=== PATIENT | male | born 1935 | race Caucasian/White ===

== ENCOUNTER 2016-04-30 09:08 | Inpatient (IN) | payer OTHER ==
--- NOTE | 2016-04-30 09:21 | EDPHY ---
H & P Stated Complaint: Weak,feels dehydrated, constipated, n/v Time Seen by Provider: 04/30/16 09:20 - Personal History Current Tetanus Diphtheria and Acellular Pertussis (TDAP): Yes - Medical/Surgical History Hx Diabetes: No Other PMH: melanoma (current immunotherapy). thyroid - Social History Smoking Status: Former smoker Constitutional: Initial Vital Signs Temperature (C) 36.3 C 04/30/16 09:09 Heart Rate 116 H 04/30/16 09:09 Respiratory Rate 18 04/30/16 09:09 Blood Pressure 106/68 04/30/16 09:09 O2 Sat (%) 93 04/30/16 09:09 O2 Delivery Mode Room Air Allergies/Adverse Reactions: No Known Allergies Allergy (Verified 04/30/16 09:16) Home Medications: Medication Instructions Recorded Ipilimumab [Yervoy] 50 mg IV 04/30/16 Levothyroxine [Synthroid 100 mcg 100 mcg PO DAILY06 04/30/16 (*)] Nivolumab [Opdivo] 40 mg IV 04/30/16 Prochlorperazine Maleate 10 mg 04/30/16 [Compazine 10mg (*)] Medical Decision Making ED Course/Re-evaluation: CHIEF COMPLAINT: Abdominal pain, constipation, vomiting. HISTORY OF PRESENT ILLNESS: The patient is an 81 y/o male, who is currently being treated for melanoma, complaining of abdominal pain, constipation, and vomiting for the past few days. He used a Fleet enema yesterday for constipation with successful bowel movement. He complains of some burning sensation in his esophagus when swallowing water. He has no appetite and has not been eating or drinking much due to the burning sensation. He was referred to the ED by his PCP for IV hydration. REVIEW OF SYSTEMS: A 10 point review of systems was performed and is negative with the exception of the elements mentioned in the history of present illness. PHYSICAL EXAM: HR, BP, O2 Sat, RR. Temp noted General Appearance: Alert, dehydrated, appropriate, and cachectic. Head: Atraumatic without scalp tenderness or obvious injury Eyes: Pupils equal, round, reactive to light and accommodation, EOMI, no trauma , no injection. Ears: Clear bilaterally, no perforation, normal landmarks Nose: Atraumatic, no rhinorrhea, clear. Throat: There is no erythema or exudates, no lesions, normal tonsils, mucus membranes dry. Neck: Supple, 2+ carotid upstroke, nontender, no lymphadenopathy. Respiratory: No retractions, no distress, no wheezes, and no accessory muscle use. Lungs are clear to auscultation bilaterally. Cardiovascular: Tachycardic regular rate and rhythm, no murmurs, rubs, or gallops. Bilateral carotid, radial, dorsalis pedis, and posterior tibial pulses intact. Good capillary refill all extremities. Gastrointestinal: Abdomen is soft, nontender, non-distended, no masses, no rebound, no guarding, no peritoneal signs. Musculoskeletal: Normal active ROM of all extremities, atraumatic. Neurological: Alert, appropriate, and interactive. The patient has normal DTRs and non-focal cranial nerves, motor, sensory, and cerebellar exam. Skin: No rashes, good turgor, no nodules on palpation. Past medical history: Melanoma on 4th round of immunotherapy Past surgical history: Noncontributory Family history: Noncontributory Social history: Family member at bedside. Oncologist: Dr. Amaya DIAGNOSTICS/PROCEDURES/CRITICAL CARE TIME: Study: CT of the Abdomen Indication: Pain Results: CT scan of the abdomen was obtained. The results of the study are partial small-bowel obstruction. The study was read by the radiologist, Dr. Amari Childers. I viewed the images myself on the PACS system. DIFFERENTIAL DIAGNOSIS: The differential diagnosis for the patient's abdominal pain included but was not limited to dehydration, complication from melanoma and treatment, appendicitis, cholecystitis, hernias, testicular torsion , gastritis, and urinary tract infection. MEDICAL DECISION MAKING: This is an ill-appearing 81 y/o male with melanoma complaining of several days of abdominal pain, constipation, and vomiting. He used a fleet enema yesterday with improvement in his constipation. He has been anorexic likely due to melanoma treatment and has also had difficulty drinking fluids due to esophageal burning after several episode of vomiting. He has dry mucous membranes on exam. His abdomen is soft and nontender. Plan for fluid resuscitation, lab work, and symptom management. IV established. Labs drawn including CBC, CHEM. 20mg IV Pepcid, 55mg PO GI cocktail, 4mg IV Zofran, and 2L IV NS administered. Creatinine 2.2, BUN 50, WBC 16. Renal insufficiency is likely related to dehydration. Plan to continue IV fluids. UA ordered. 1135: Reevaluated patient. He continues to have short episodes of abdominal cramping. He does not feel improved. Plan for abdominal CT and admission for rehydration and observation. 1140: Spoke with Dr. Oscar, oncology. She read me the patient's recent PET scan from earlier this month that showed no evidence for his abdominal pain today. 1145: Spoke with hospitalist service. Dr. Yusuf accepts admission. CT scan came back showing partial small bowel obstruction I will paged surgery. - Data Points Laboratory Results: Laboratory Results 04/30/16 09:30 04/30/16 09:30 04/30/16 04/30/16 11:05 09:30 WBC 16.59 H 10^3/uL (3.80-9.50) RBC 5.49 10^6/uL (4.40-6.38) Hgb 16.0 g/dL (13.7-17.5) Hct 47.4 % (40.0-51.0) MCV 86.3 fL (81.5-99.8) MCH 29.1 pg (27.9-34.1) MCHC 33.8 g/dL (32.4-36.7) RDW 14.7 % (11.5-15.2) Plt Count 229 10^3/uL (150-400) MPV 8.5 L fL (8.7-11.7) Neut % (Auto) 86.1 H % (39.3-74.2) Lymph % (Auto) 3.6 L % (15.0-45.0) [place] % (Auto) 9.5 % (4.5-13.0) Eos % (Auto) 0.1 L % (0.6-7.6) Baso % (Auto) 0.3 % (0.3-1.7) Nucleat RBC Rel Count 0.0 % (0.0-0.2) Absolute Neuts (auto) 14.28 H 10^3/uL (1.70-6.50) Absolute Lymphs (auto) 0.60 L 10^3/uL (1.00-3.00) Absolute Monos (auto) 1.58 H 10^3/uL (0.30-0.80) Absolute Eos (auto) 0.01 L 10^3/uL (0.03-0.40) Absolute Basos (auto) 0.05 10^3/uL (0.02-0.10) Absolute Nucleated RBC 0.00 10^3/uL (0-0.01) Immature Gran % 0.4 % (0.0-1.1) Immature Gran # 0.07 10^3/uL (0.00-0.10) Sodium 139 mEq/L (134-144) Potassium 4.5 mEq/L (3.5-5.2) Chloride 95 L mEq/L (97-110) Carbon Dioxide 31 mEq/l (22-31) Anion Gap 13 mEq/L (8-16) BUN 50 H mg/dL (7-23) Creatinine 2.2 H mg/dL (0.7-1.3) Estimated GFR 29 Glucose 165 H mg/dL (70-100) Calcium 11.9 H mg/dL (8.5-10.4) Phosphorus 5.6 H mg/dL (2.5-4.5) Urine Color YELLOW Urine Appearance CLEAR Urine pH 5.0 (5.0-7.5) Ur Specific [place] 1.020 (1.002-1.030) Urine Protein 1+ H (NEGATIVE) Urine Ketones TRACE H (NEGATIVE) Urine Blood NEGATIVE (NEGATIVE) Urine Nitrate NEGATIVE (NEGATIVE) Urine Bilirubin NEGATIVE (NEGATIVE) Urine Urobilinogen NEGATIVE EU (0.2-1.0) Ur Leukocyte Esterase NEGATIVE (NEGATIVE) Urine RBC 5-10 H /hpf (0-3) Urine WBC 3-5 H /hpf (0-3) Ur Epithelial Cells TRACE /lpf (NONE-1+) Urine Mucus TRACE /lpf (NONE-1+) Ur Culture Indicated? Pending Urine Glucose NEGATIVE (NEGATIVE) Medications Given: Discontinued Medications Sodium Chloride (Ns) 1,000 mls @ 0 mls/hr IV ONCE ONE PRN Reason: Wide Open Stop: 04/30/16 09:27 Last Admin: 04/30/16 09:38 Dose: 1,000 mls Sodium Chloride (Ns) 1,000 mls @ 0 mls/hr IV ONCE ONE PRN Reason: Wide Open Stop: 04/30/16 09:27 Last Admin: 04/30/16 10:02 Dose: 1,000 mls Famotidine/Sodium Chloride (Pepcid 20 Mg (Premix)) 50 mls @ 200 mls/hr IV EDNOW ONE Stop: 04/30/16 09:40 Last Admin: 04/30/16 09:37 Dose: 50 mls Miscellaneous Medication (Gi Cocktail) 55 ml PO EDNOW ONE Stop: 04/30/16 09:27 Last Admin: 04/30/16 10:02 Dose: 55 ml Ondansetron HCl (Zofran) 4 mg IVP EDNOW ONE Stop: 04/30/16 09:27 Last Admin: 04/30/16 09:40 Dose: 4 mg Departure - Departure Disposition: [facility] IP Clinical Impression: Dehydration, Partial small bowel obstruction Nausea and vomiting Qualifiers: Vomiting type: unspecified Vomiting Intractability: non-intractable Qualifier Code: (R11.2) Nausea with vomiting, unspecified Abdominal pain Qualifiers: Abdominal location: generalized Qualifier Code: (R10.84) Generalized abdominal pain Condition: Fair Report Scribed for: Obed Bermudez Report Scribed by: Magdalena Morley Date of Report: 04/30/16 Time of Report: 09:30
[2016-04-30] MEDS ORDERED: MAALOX/LIDO/HYOSC GI COCKTAIL 55 ML BOTTLE PO ONE (09:26)
[2016-04-30] MEDS ORDERED: ONDANSETRON 4 MG/2 ML VIAL IVP ONE (09:26)
[2016-04-30] MEDS ORDERED: NS 1,000 ML IV ONE ×2 (09:26)
[2016-04-30] MEDS ORDERED: FAMOTIDINE 20 MG/NACL 50 ML IV ONE (09:26)
[2016-04-30 09:46] LABS: % IMMATURE GRANULYOCYTES 0.4 % (0.0-1.1); ABSOLUTE IMMATURE GRANULOCYTES 0.07 10^3/uL (0.00-0.10); ADD DIFF? NO; ADD MORPH? NO; ADD SCAN? NO; ATYPICAL LYMPHOCYTE FLAG 0 (0-99); FRAGMENT RBC FLAG 0 (0-99); HEMATOCRIT 47.4 % (40.0-51.0); LEFT SHIFT FLG 0 (0-99); LIPEMIA HEMOLYSIS FLAG 90 (0-99); MEAN CELL HEMOGLOBIN 29.1 pg (27.9-34.1); MEAN CELL HEMOGLOBIN CONCENTR. 33.8 g/dL (32.4-36.7); MEAN CELL VOLUME 86.3 fL (81.5-99.8); MEAN PLATELET VOLUME 8.5 fL (8.7-11.7); PLATELET CLUMPS FLAG 0 (0-99); PLATELET COUNT 229 10^3/uL (150-400); RED BLOOD CELL COUNT 5.49 10^6/uL (4.40-6.38); RED CELL DISTRIBUTION WIDTH 14.7 % (11.5-15.2)
[2016-04-30 10:02] LABS: ANION GAP 13 mEq/L (8-16); CALCIUM 11.9 mg/dL (8.5-10.4); CARBON DIOXIDE 31 mEq/l (22-31); CHLORIDE 95 mEq/L (97-110); CREATININE 2.2 mg/dL (0.7-1.3); GLOMERULAR FILTRATION RATE 29; GLUCOSE 165 mg/dL (70-100); POTASSIUM 4.5 mEq/L (3.5-5.2); SODIUM 139 mEq/L (134-144)
[2016-04-30 11:20] LABS: COLOR YELLOW; LEUKOCYTE ESTERASE,URINE NEGATIVE (NEGATIVE); NITRITE,URINE NEGATIVE (NEGATIVE)
[2016-04-30 11:40] LABS: MUCUS TRACE /lpf (NONE-1+)
--- NOTE | 2016-04-30 13:29 | CT ---
CT Abdomen and Pelvis Without Contrast History: History of melanoma on immunotherapy. Abdominal pain. Abnormal renal function with creatinin e of 2.2. Technique: 5-mm helical images were obtained of the abdomen and pelvis from the level of the diaphrag ms through the symphysis pubis. This was done without intravenous contrast with the abnormal renal fu nction. Multiplanar reformation was performed. Radiation dose reduction technique was utilized. Comparison: PET CT from [facility] dated April 14, 2016. Findings Abdomen: Nodular density is seen in the right lower lobe, measuring 2 cm, which appears larger than t he comparison PET scan; however, this study was thicker images and had motion artifact and that study was not glucose avid. There is a calcified granuloma in the left lung base. Hypodense lesions are se en in the liver, suggesting hepatic cysts which are not glucose avid on the comparison study. Minimal ly complex appearance to the largest one at the inferior right lobe of the liver, measuring 2.8 cm wi th peripheral calcification. Spleen is unremarkable. Pancreas is unremarkable. Renal cortical cysts a re seen bilaterally, largest inferior pole of the right kidney, measuring 3.5 cm. Nephrolithiasis is seen in both kidneys, which is nonobstructive. Dilated loops of small bowel are seen of the upper abd omen, jejunum. Pelvis: Multiple lytic lesions are seen in the lumbar spine and pelvis and one in the posterior left rib. These are glucose avid on the comparison study. Multilevel degenerative change is seen in the yannick mbar spine. Diverticulosis is seen in the sigmoid colon without evidence for diverticulitis. Radiatio n seeds are seen in the prostate. Calculus is seen in the left posterior bladder. No significant free fluid in the pelvis or free intraperitoneal air. Soft tissue mass is seen in the posterior abdominal wall subcutaneous fat at the level of L3. Impression: 1. Partial small bowel obstruction of the jejunum. 2. Evidence of osseous metastatic disease. Probable soft tissue metastasis in the posterior right abd ominal wall. 3. Nodular density in the right lower lobe which is not glucose avid of uncertain etiology. This coul d be treated metastatic disease or infectious or inflammatory. Results discussed with Dr. Obed Bermudez.
[2016-04-30] MEDS ORDERED: ONDANSETRON 4 MG/2 ML VIAL IVP PRN ×3 (13:50→14:15)
[2016-04-30] MEDS ORDERED: PROMETHAZINE HCL 25 MG/ML INJ IVP PRN (14:09)
[2016-04-30] MEDS ORDERED: ACETAMINOPHEN 325 MG TAB PO PRN (14:09)
[2016-04-30] MEDS ORDERED: ONDANSETRON DISINTEGRATING 4 MG TAB PO PRN (14:09)
[2016-04-30] MEDS ORDERED: PROTOCOL MAGNESIUM 1 DOSE IV PRN (14:09)
[2016-04-30] MEDS ORDERED: NALOXONE HCL 0.4 MG/ML INJ IVP PRN (14:09)
[2016-04-30] MEDS ORDERED: PROTOCOL POTASSIUM 1 DOSE MISC PRN (14:09)
[2016-04-30] MEDS ORDERED: LORazepam 2 MG/ML INJ IVP PRN (14:09)
[2016-04-30] MEDS ORDERED: oxyCODONE IR 5 MG TAB PO PRN (14:09)
[2016-04-30] MEDS ORDERED: PROTOCOL K PHOSPHATE 1 DOSE IV PRN (14:09)
--- NOTE | 2016-04-30 14:11 | GCON ---
[f rep st] CONSULTATION REASON FOR CONSULTATION: Asked to see the patient in consultation in regard to possible small-bowel obstruction. HISTORY OF PRESENT ILLNESS: This 81-year-old male has just completed intravenous chemotherapy for me lanoma after having melanoma resected from his chin. He states for 3 days, he has had lower abdomina l pain, has not had a good bowel movement, so he used a Fleets enema last night with some results. To day, he states he is still passing flatus. He was seen in the emergency department, where elevated c reatinine was noted and it was felt he was likely dehydrated. CT scan of the abdomen shows dilated s tomach and proximal small bowel with a transition zone somewhere in the jejunum, and decompressed ter omer ileum. Evidence of osseous metastatic disease is seen, although it is unclear to me whether th is is prostate or melanoma. ALLERGIES: None. CURRENT MEDICATIONS: Thyroid. PAST SURGICAL HISTORY: Appendectomy many years ago, prostate seeds placed. REVIEW OF SYSTEMS: Positive for prostate cancer and melanoma. LABORATORY: Exams on this admission include a white blood count of 16.6, hematocrit 47, platelets 22 9. Electrolytes normal, other than a chloride of only 95, BUN 50, creatinine 2.2. Calcium is elevat ed at 11.9, phosphorus 5.6. Urine specific gravity is 1.020. PHYSICAL EXAM: GENERAL: Pleasant elderly male, completely oriented. HEENT: Within normal limits. LUNGS: Clear. HEART: Normal S1, S2 without murmur. ABDOMEN: Flat, less impressive than the CT sc an in terms a gastric dilatation. No hernias present. ASSESSMENT: 1. Dehydration. 2. Hypercalcemia, either from dehydration or metastatic disease with the hypercalcemia of metastatic process. 3. Partial small-bowel obstruction. The x-ray shows dilated stomach and jejunum however, the passag e of some flatus this morning argues against a complete bowel obstruction. Also noted was diverticul osis on CT scan and the patient has had a history of diverticulitis. He could have adhesive bands f rom previous diverticular attacks causing a small-bowel obstruction. RECOMMENDATIONS: IV hydration. Repeat laboratory tests. While his stomach seems dilated, we can go without an NG tube is present and see how this progresses. If he starts vomiting later today, an NG tube would be reasonable. Should he resume to pass more flatus and stool, nothing further need be d one. Obviously, if his small-bowel obstruction progresses, he might need exploration. /[id number]/MODL
[2016-04-30] MEDS ORDERED: PAMIDRONATE DISODIUM 60 MG in NS 250 ML IV ONE (14:22)
[2016-04-30] MEDS: HYDROmorphONE/DILAUDID 6 MG/30 ML PCA IV PRN (15:04)
[2016-04-30] MEDS: NS 1,000 ML IV SCH (15:06)
[2016-04-30] MEDS ORDERED: NS IV ONE (15:30)
[2016-04-30] MEDS ORDERED: ZOLEDRONIC ACID IV ONE (15:30)
--- NOTE | 2016-04-30 16:24 | PDGENHP ---
History and Physical - Chief Complaint adb pain/n/v - History of Present Illness 81 yo M with PMH of metastatic melanoma (mets to bone) as well as prostate cancer presenting with abd pain as well as nausea and vomiting and constipation. He has been constipated and not eating well for several days as well as having intermittent n/v all week. Today he has been having intense spasms of abdominal pain. It seems to come on, grow quickly worse, and then sort of resolve after usually vomiting. He continues to pass gas intermittently. He has not been able to eat due to the pain. He has recently completed IV chemo for melanoma and had a PET scan on 04/28 which showed significant progression of disease, particularly in the bone. History Information - Allergies/Home Medication List Allergies/Adverse Reactions: No Known Allergies Allergy (Verified 04/30/16 09:16) Home Medications: Cholecalciferol Vit D3 [Vitamin D3 2000 units tab (OTC)] 5,000 units PO DAILY [Last Taken 04/27/16] Cyanocobalamin [Vitamin B12 (*)] 100 mcg PO DAILY 04/30/16 [Last Taken 04/28/16] Docusate Sodium [Colace 100 MG (*)] 100 mg PO BID PRN 04/30/16 [Last Taken 04/29] Herbals/Supplements -Info Only 1 ea PO DAILY 04/30/16 [Last Taken 04/30/16] Ipilimumab [Yervoy] 50 mg IV ONCE 04/30/16 [Last Taken 04/09/16] Levothyroxine [Synthroid 25 mcg (*)] 25 mcg PO DAILY06 04/30/16 [Last Taken ] Naproxen Sodium [Aleve 220 MG (*)] 220 - 440 mg PO BID PRN 04/30/16 [Last Taken 04/28/16] Nivolumab [Opdivo] 40 mg IV ONCE 04/30/16 [Last Taken 04/09/16] Prochlorperazine Maleate [Compazine 10mg (*)] 10 mg PO Q6HRS PRN 04/30/16 [Last Taken 04/30/16 06:00] I have personally reviewed and updated: family history, medical history, social history, surgical history - Past Medical History coronary artery disease, cancer (metastatic melanoma and prostate), hypertension , hyperlipidemia - Surgical History Reports: appendectomy Additional surgical history: melanoma resection on chin. vertebral biopsy. 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 accompanied by 2 children Review of Systems ROS: 10pt was reviewed & negative except for what was stated in HPI & below Physical Exam Temp Pulse Resp BP Pulse Ox 36.6 C 91 18 165/88 H 96 04/30/16 13:18 04/30/16 13:18 04/30/16 13:18 04/30/16 13:18 04/30/16 13:20 O2 (L/minute) 2 Constitutional: no apparent distress, appears nourished Eyes: PERRL Ears, Nose, Mouth, Throat: moist mucous membranes Cardiovascular: regular rate and rhythym, no murmur, rub, or gallop, No edema Respiratory: no respiratory distress, no rales or rhonchi Gastrointestinal: tenderness, No normoactive bowel sounds, No guarding, No rebound, No distension Genitourinary: no bladder tenderness Skin: warm, normal color Musculoskeletal: full muscle strength Neurologic: AAOx3, sensation intact bilaterally, CN II-XII Intact Psychiatric: interacting appropriately, not anxious, not encephalopathic Lab Data & Imaging Review 04/30/16 09:30 04/30/16 09:30 WBC 16.59 10^3/uL (3.80-9.50) H 04/30/16 09:30 RBC 5.49 10^6/uL (4.40-6.38) 04/30/16 09:30 Hgb 16.0 g/dL (13.7-17.5) 04/30/16 09:30 Hct 47.4 % (40.0-51.0) 04/30/16 09:30 MCV 86.3 fL (81.5-99.8) 04/30/16 09:30 MCH 29.1 pg (27.9-34.1) 04/30/16 09:30 MCHC 33.8 g/dL (32.4-36.7) 04/30/16 09:30 RDW 14.7 % (11.5-15.2) 04/30/16 09:30 Plt Count 229 10^3/uL (150-400) 04/30/16 09:30 MPV 8.5 fL (8.7-11.7) L 04/30/16 09:30 Neut % (Auto) 86.1 % (39.3-74.2) H 04/30/16 09:30 Lymph % (Auto) 3.6 % (15.0-45.0) L 04/30/16 09:30 [place] % (Auto) 9.5 % (4.5-13.0) 04/30/16 09:30 Eos % (Auto) 0.1 % (0.6-7.6) L 04/30/16 09:30 Baso % (Auto) 0.3 % (0.3-1.7) 04/30/16 09:30 Nucleat RBC Rel Count 0.0 % (0.0-0.2) 04/30/16 09:30 Absolute Neuts (auto) 14.28 10^3/uL (1.70-6.50) H 04/30/16 09:30 Absolute Lymphs (auto) 0.60 10^3/uL (1.00-3.00) L 04/30/16 09:30 Absolute Monos (auto) 1.58 10^3/uL (0.30-0.80) H 04/30/16 09:30 Absolute Eos (auto) 0.01 10^3/uL (0.03-0.40) L 04/30/16 09:30 Absolute Basos (auto) 0.05 10^3/uL (0.02-0.10) 04/30/16 09:30 Absolute Nucleated RBC 0.00 10^3/uL (0-0.01) 04/30/16 09:30 Immature Gran % 0.4 % (0.0-1.1) 04/30/16 09:30 Immature Gran # 0.07 10^3/uL (0.00-0.10) 04/30/16 09:30 Sodium 139 mEq/L (134-144) 04/30/16 09:30 Potassium 4.5 mEq/L (3.5-5.2) 04/30/16 09:30 Chloride 95 mEq/L (97-110) L 04/30/16 09:30 Carbon Dioxide 31 mEq/l (22-31) 04/30/16 09:30 Anion Gap 13 mEq/L (8-16) 04/30/16 09:30 BUN 50 mg/dL (7-23) H 04/30/16 09:30 Creatinine 2.2 mg/dL (0.7-1.3) H 04/30/16 09:30 Estimated GFR 29 04/30/16 09:30 Glucose 165 mg/dL (70-100) H 04/30/16 09:30 Calcium 11.9 mg/dL (8.5-10.4) H 04/30/16 09:30 Phosphorus 5.6 mg/dL (2.5-4.5) H 04/30/16 09:30 Magnesium 1.9 mg/dL (1.6-2.3) 04/30/16 09:30 Specimen Hemolysis Cancelled 04/30/16 09:30 Urine Color YELLOW 04/30/16 11:05 Urine Appearance CLEAR 04/30/16 11:05 Urine pH 5.0 (5.0-7.5) 04/30/16 11:05 Ur Specific [place] 1.020 (1.002-1.030) 04/30/16 11:05 Urine Protein 1+ (NEGATIVE) H 04/30/16 11:05 Urine Ketones TRACE (NEGATIVE) H 04/30/16 11:05 Urine Blood NEGATIVE (NEGATIVE) 04/30/16 11:05 Urine Nitrate NEGATIVE (NEGATIVE) 04/30/16 11:05 Urine Bilirubin NEGATIVE (NEGATIVE) 04/30/16 11:05 Urine Urobilinogen NEGATIVE EU (0.2-1.0) 04/30/16 11:05 Ur Leukocyte Esterase NEGATIVE (NEGATIVE) 04/30/16 11:05 Urine RBC 5-10 /hpf (0-3) H 04/30/16 11:05 Urine WBC 3-5 /hpf (0-3) H 04/30/16 11:05 Ur Epithelial Cells TRACE /lpf (NONE-1+) 04/30/16 11:05 Urine Mucus TRACE /lpf (NONE-1+) 04/30/16 11:05 Ur Culture Indicated? NOT INDICATED (NI) 04/30/16 11:05 Urine Glucose NEGATIVE (NEGATIVE) 04/30/16 11:05 Visualized and Interpreted imaging results: Yes Interpretation: abd ct c/w partial sbo, osseous metastatic disease Assessment & Plan Assessment: 81 yo M with malignant melanoma pw partial sbo, brandon, hyperkalemia # partial sbo: in setting of malignant melanoma but imaging does not show evidence of mass likely to be causing this and query if related to adhesions. Will treat conservatively for now with IVF, pain medications and anti emetics. Appreciate surgery evaluation. # brandon on ckd: in setting of above and likely pre renal, baseline creatinine closer to 1.7. IVF as above and will trend # hyperkalemia: related either to volume depletion versus bony metastasis. Possibly contributing to brandon. IVF and palmidronate, continue to monitor. # metastatic melanoma: with vertebral biopsy showing metastatic melanoma, patient recently treated with nivolumab and ipilumumab but PET scan showing progression of disease. Appreciate oncology input. # leukocytosis: likely stress response, no clear e/o infection. Will get UA and CXR to eval for possible occult infectious process. # hypothyroid: continue lt4 # dispo: IP status, will need > 48 hours stay for eval/mgmt of above Care plan reviewed with surgery/oncology. Further hx obtained from patients children present at bedside.
[2016-04-30 18:28] LABS: POTASSIUM 4.7 mEq/L (3.5-5.2)
--- NOTE | 2016-04-30 19:37 | DX ---
PA and Lateral Chest April 30, 2016 at 1839 Hours Indication: An 81-year-old man with history of metastatic melanoma. Nodular densities in the right lo wer lobe on recent chest CT. Evaluate for pneumonia. Comparison: CT of the abdomen and pelvis from earlier today, CT of the thoracic spine dated August 22 016, and [facility] head CTs dated April 14, 2016, July 21, 2015, and December 07, 2015. Findings: The nodular opacities in the right lower lobe correspond to partially treated metastasis to the right lower lobe. No airspace consolidation to suggest pneumonia. Two metabolically active nodul es are present in the left suprahilar distribution (evident on the most recent PET/CT). Heart size is normal. No interstitial edema or effusion. Impression: 1. No pneumonia. 2. Right basilar nodular opacities correspond to partially treated melanoma metastasis. 3. Left upper lobe nodules correspond to metabolically active metastasis on recent PET/CT.
--- NOTE | 2016-04-30 20:10 | GCON ---
[f rep st] CONSULTATION REFERRING PHYSICIAN: Avelina Yusuf MD REASON FOR CONSULTATION: Patient known to Dr. Amaya with stage IV cutaneous melanoma, on immunotherapy. Patient presents with dehydration, weakness, and constipation. HISTORY OF PRESENT ILLNESS: The patient is an 81-year-old gentleman, who is currently under the care of Dr. Amaya for stage IV cutaneous melanoma. He received a fourth dose of ipilimumab in conjunction with nivolumab last on 03/24. He has tolerated therapy well. Patient has had previous radiation to some bony lesions in the ribs, as well as the chin lesion and had significant toxicity from this, including loss of appetite and weight loss. Patient and patient's family member called me twice over the weekend complaining that patient was having some nonspecific crampy abdominal pain. He was having gas and denied any significant abdominal distention. He has vomited about 4 times since Sunday evening. Despite a bowel regimen at home and fluids, patient presented to the emergency department with severe weakness, constipation , nausea, and vomiting. In the ED, he received a GI cocktail and also had an abdominal CT performed that showed partial small-bowel obstruction of the jejunum, evidence of osseous metastatic disease, and probable soft tissue met in the posterior right abdominal wall, nodular density in the right lower lobe not glucose avid of uncertain etiology. Patient was started on IV fluids and has been seen by Dr. Daniel. At this time, conservative management is recommended. PAST MEDICAL HISTORY: Significant for melanoma as described above, hypothyroidism directly related to his current treatment, history of prostate cancer status post seeding. PAST SURGICAL HISTORY: Appendectomy many years ago, prostate seed implant as mentioned above. CURRENT MEDICATIONS: Include levothyroxine. REVIEW OF SYSTEMS: As per HPI. Otherwise, 14-point review of systems is negative. He does deny bone pain or any neurologic changes. He does not have any shortness of breath. Most of his complaints are the abdominal cramping. Again, he is having flatus. PHYSICAL EXAM: VITAL SIGNS: Today show a blood pressure of 165/88, pulse of 91 , O2 sat 87% currently on nasal cannula, temperature of 36.6. GENERAL: Chronically ill-appearing, elderly gentleman, in moderate distress due to abdominal discomfort. HEENT: Anicteric sclerae. He has a divot in his chin medical collections representative of previous radiation and surgical resection of melanoma. HEART: Regular rate and rhythm. LUNGS: Clear to auscultation bilaterally. ABDOMEN: Soft. Bowel sounds are hypoactive, but present. He has tender to palpation throughout. LOWER EXTREMITIES: Show no significant edema. SKIN: No changes. LABS: Show white blood cell count of 16.5, hemoglobin 16, platelet count 222. Sodium is 139, potassium 4.5, chloride 95, BUN 50, creatinine 2.2. His baseline creatinine is 1.6. Glucose 165. Calcium 11.9. This is uncorrected with an unknown albumin. His phosphorus is 5.6. Urinalysis shows 1+ protein, trace ketones, 5-10 RBCs, 3-5 WBCs. IMAGING: Recent PET scan done on 02/13/2016 shows mixed response in the chest with enlarging hilar left upper lobe nodule and near-complete resolution of right upper and lower lobe nodules. Radiology reports new significant bony disease and subcutaneous metastatic nodules. ASSESSMENT AND PLAN: An 81-year-old gentleman with stage IV cutaneous melanoma , who presents with partial small-bowel obstruction, dehydration, and electrolyte abnormalities including hypercalcemia. 1. Partial small-bowel obstruction: Patient is still passing flatus, and would agree with Dr. Daniel that conservative approach with IV fluids and n.p.o. for now. He possibly will need an NG tube. For the pain, he will be started on pain control per Internal Medicine. 2. Hypercalcemia: Given the degree of metastatic bony disease, I would imagine this is partially due to hypercalcemia of malignancy and see no contraindication to giving him IV pamidronate while in the hospital. He has not received any IV bisphosphonates or IV denosumab as an outpatient. I will give him pamidronate 60 IV today with adequate hydration. 3. Hyperphosphatemia: Continue to monitor with IV fluids. Consider a phos- binding if IV fluids do not correct his renal function. 4. Stage IV melanoma, status post 4 cycles of nivolumab and ipilimumab: PET scan performed less than 4 weeks status post last dose of immunotherapy. The results of which by normal RECIST criteria showed a mixed response. However, given the fact patient is given immunotherapy I would assume some of the new enlarging areas may be due to an immune response. Will defer to Dr. Amaya, but would probably give him the benefit of the doubt, putting him on maintenance nivolumab and repeating scans in a couple months. I do not think this represents necessarily a failure of response at this time. 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 Patient does need to be on a bowel regimen. Will continue to follow in the hospital. /[id number]/MODL MTDD
[2016-04-30] MEDS: HEPARIN 5,000 UNIT/0.5 ML SYR SC SCH (22:11)
[2016-05-01 05:37] LABS: % IMMATURE GRANULYOCYTES 0.2 % (0.0-1.1); ABSOLUTE IMMATURE GRANULOCYTES 0.01 10^3/uL (0.00-0.10); ADD DIFF? NO; ADD MORPH? NO; ADD SCAN? NO; ATYPICAL LYMPHOCYTE FLAG 10 (0-99); FRAGMENT RBC FLAG 0 (0-99); HEMATOCRIT 38.2 % (40.0-51.0); HEMOGLOBIN 12.6 g/dL (13.7-17.5); LEFT SHIFT FLG 40 (0-99); LIPEMIA HEMOLYSIS FLAG 80 (0-99); MEAN CELL HEMOGLOBIN 29.4 pg (27.9-34.1); MEAN CELL VOLUME 89.3 fL (81.5-99.8); MEAN PLATELET VOLUME 8.5 fL (8.7-11.7); PLATELET CLUMPS FLAG 10 (0-99); PLATELET COUNT 146 10^3/uL (150-400); RED BLOOD CELL COUNT 4.28 10^6/uL (4.40-6.38); RED CELL DISTRIBUTION WIDTH 14.7 % (11.5-15.2)
[2016-05-01 05:57] LABS: ALANINE AMINOTRANSFERASE 68 IU/L (21-72); ALBUMIN 3.1 g/dL (3.5-5.0); ALKALINE PHOSPHATASE 85 IU/L (38-126); ANION GAP 4 mEq/L (8-16); ASPARTATE AMINOTRANSFERASE 65 IU/L (17-59); BILIRUBIN,TOTAL 0.9 mg/dL (0.1-1.4); CALCIUM 9.4 mg/dL (8.5-10.4); CARBON DIOXIDE 31 mEq/l (22-31); CHLORIDE 108 mEq/L (97-110); CREATININE 1.7 mg/dL (0.7-1.3); GLOMERULAR FILTRATION RATE 39; GLUCOSE 92 mg/dL (70-100); MAGNESIUM 2.1 mg/dL (1.6-2.3); POTASSIUM 4.4 mEq/L (3.5-5.2); SODIUM 143 mEq/L (134-144); TOTAL PROTEIN 5.6 g/dL (6.3-8.2)
[2016-05-01] MEDS: LEVOTHYROXINE 25 MCG TAB PO SCH (06:03)
[2016-05-01] MEDS: HEPARIN 5,000 UNIT/0.5 ML SYR SC SCH ×3 (06:03→20:38)
[2016-05-01 07:03] LABS: COLOR YELLOW; LEUKOCYTE ESTERASE,URINE NEGATIVE (NEGATIVE); NITRITE,URINE NEGATIVE (NEGATIVE)
[2016-05-01 07:13] LABS: MUCUS TRACE /lpf (NONE-1+)
--- NOTE | 2016-05-01 10:09 | SOAPPROG ---
SOAP Progress Note Assessment/Plan: Assessment/Plan: 81 Y M c melanoma and hx appy and prostate seeds c SBO. Seems to be improving c bowel rest and IV hydration. AXR today. If ok, consider advancing to clears. Seen and examined c Dr. Maurice. S: Passing gas. No abd pain. O: alert, nad, thin no wob rrr abd soft, nt 05/01/16 10:06 Objective: Vital Signs Temp Pulse Resp BP Pulse Ox 36.7 C 75 18 124/73 H 98 05/01/16 07:58 05/01/16 07:58 05/01/16 07:58 05/01/16 07:58 05/01/16 07:58 Laboratory Results 05/01/16 05:11 05/01/16 05:11 04/30/16 05/01/16 05/02/16 05:59 05:59 05:59 Intake Total 2219 Output Total 400 150 Balance 1819 -150 ICD10 Worksheet Patient Problems: Problems Problem Status Diagnosed Abdominal pain Acute Dehydration Acute Nausea and vomiting Acute Partial obstruction of small intestine Acute
[2016-05-01] MEDS: NS 1,000 ML IV SCH ×2 (12:12→20:38)
--- NOTE | 2016-05-01 12:40 | SOAPPROG ---
BOWEN Progress Note Assessment/Plan: Assessment: 1) Metastatic melanoma (currently receiving Immunotherapy with response) 2) Hypercalcemia of malignancy 3) Ileus secondary to #2. Plan: Doing better today. He is passing flatus. Denies abdominal pain or nausea at present time. His ileus / SBO is being managed conservatively. I suspect that it was related to his hypercalcemia, which has corrected with Zometa. Continue IV fluids. Anticipate resolution of his ileus in next 24 - 48 hours. Above d/w patient, daughter, nursing 05/01/16 12:37 Subjective: Fels better. Passing Flatus. Calcium normal today Objective: Vital Signs Temp Pulse Resp BP Pulse Ox 36.7 C 86 20 143/84 H 99 05/01/16 07:58 05/01/16 10:00 05/01/16 10:00 05/01/16 10:00 05/01/16 10:00 Laboratory Results 05/01/16 05:11 05/01/16 05:11 04/30/16 05/01/16 05/02/16 05:59 05:59 05:59 Intake Total 2219 2510 Output Total 400 150 Balance 1819 2360 - Time Spent With Patient Time Spent With Patient: 25 minutes Physical Exam - Physical Exam General Appearance: no apparent distress EENT: PERRL/EOMI Abdomen: non-tender, soft Neuro/Psych: alert, normal mood/affect ICD10 Worksheet Patient Problems: Problems Problem Status Diagnosed Abdominal pain Acute Dehydration Acute Nausea and vomiting Acute Partial obstruction of small intestine Acute
--- NOTE | 2016-05-01 14:07 | DX ---
Abdomen 2 view 12:13 p.m. Indication: Abdominal distention. History of metastatic melanoma. Technique: Upright and supine views. Comparison: CT abdomen and pelvis dated April 30, 2016. Findings: Decreased gaseous bowel pattern since one day prior. A single mildly dilated loop of small bowel in the right lower quadrant has associated air-fluid levels on the upright view. Bilateral neph rolithiasis and bladder stone are unchanged. No pneumoperitoneum. Brachii therapy implants in the pro state gland are unchanged. Impression: Low-grade partial bowel obstruction versus focal adynamic ileus has not significantly ch anged.
--- NOTE | 2016-05-01 14:45 | HOSPPROG ---
Hospitalist Progress Note Assessment/Plan: 81 yo M with malignant melanoma pw partial sbo, steven, hyperkalemia # acute small bowel obstruction- presumed secondary to hypercalcemia of malignancy- patient received Zometa on admission - passing flatus pain persistent remains intermittently severe overnight CT abdomen( personally reviewed and interpreted) small-bowel obstruction- bony metastatic disease- no intra-abdominal mass - surgery consulting - patient NPO with IV fluids - IV pain medication - abdominal films ordered # STEVEN on CKD- suspect secondary to hypovolemia- creatinine 2.2-> 1.7 oxygen saturations 99% on 2 L - continue IV fluids # hyperkalemia- responded to IV fluids - potassium 4.4 this morning - monitor BMP # hypercalcemia acute- calcium 11.9 on admission- normalized this morning - received Zometa - monitor BMP # metastatic melanoma- with vertebral biopsy showing metastatic melanoma- treated with nivolumab and ipilumumab- PET scan showing progression of disease. - oncology consulting - palliative Care consult today for long-term goal planning # leukocytosis- suspect stress response - normalized overnight with supportive care normal UA and CXR - on admission # hypothyroid- continue thyroid replacement # dispo: IP status, will need > 48 hours stay for eval/mgmt of above- requiring IV pain medications I discussed the case with palliative Care team- they will assist in goals of care counseling advanced directives in nutritional planning Subjective: severe pain persists in the left lower quadrant Objective: Vital Signs Temp Pulse Resp BP Pulse Ox 36.9 C 100 24 H 146/78 H 92 05/01/16 12:00 05/01/16 12:00 05/01/16 12:00 05/01/16 12:00 05/01/16 12:00 Laboratory Results 05/01/16 05:11 05/01/16 05:11 04/30/16 05/01/16 05/02/16 05:59 05:59 05:59 Intake Total 2219 2510 Output Total 400 150 Balance 1819 2360 - Physical Exam Constitutional: chronically ill appearing Eyes: anicteric sclera Ears, Nose, Mouth, Throat: dry mucous membranes Cardiovascular: regular rate and rhythym Respiratory: no respiratory distress, no rales or rhonchi Gastrointestinal: tenderness, No normoactive bowel sounds, No guarding, No rebound Genitourinary: no bladder fullness Skin: warm, normal color Musculoskeletal: No asymmetric calves Neurologic: AAOx3 Psychiatric: flat affect Lymph, Heme, Immunologic: no cervical LAD ICD10 Worksheet Patient Problems: Problems Problem Status Diagnosed Abdominal pain Acute Dehydration Acute Nausea and vomiting Acute Partial obstruction of small intestine Acute
[2016-05-01 19:31] LABS: POTASSIUM 4.6 mEq/L (3.5-5.2)
[2016-05-02] MEDS: LEVOTHYROXINE 25 MCG TAB PO SCH (06:30)
[2016-05-02] MEDS: HEPARIN 5,000 UNIT/0.5 ML SYR SC SCH ×3 (06:31→22:44)
[2016-05-02 06:36] LABS: % IMMATURE GRANULYOCYTES 0.2 % (0.0-1.1); ABSOLUTE IMMATURE GRANULOCYTES 0.01 10^3/uL (0.00-0.10); ADD DIFF? NO; ADD MORPH? NO; ADD SCAN? YES; ATYPICAL LYMPHOCYTE FLAG 70 (0-99); FRAGMENT RBC FLAG 0 (0-99); HEMATOCRIT 40.7 % (40.0-51.0); HEMOGLOBIN 12.8 g/dL (13.7-17.5); LIPEMIA HEMOLYSIS FLAG 80 (0-99); MEAN CELL HEMOGLOBIN 28.8 pg (27.9-34.1); MEAN CELL HEMOGLOBIN CONCENTR. 31.4 g/dL (32.4-36.7); MEAN CELL VOLUME 91.5 fL (81.5-99.8); MEAN PLATELET VOLUME 8.9 fL (8.7-11.7); PLATELET CLUMPS FLAG 0 (0-99); PLATELET COUNT 128 10^3/uL (150-400); RED BLOOD CELL COUNT 4.45 10^6/uL (4.40-6.38); RED CELL DISTRIBUTION WIDTH 14.9 % (11.5-15.2)
[2016-05-02 06:42] LABS: LEFT SHIFT FLG 300 (0-99)
[2016-05-02 06:56] LABS: ANION GAP 7 mEq/L (8-16); CALCIUM 8.4 mg/dL (8.5-10.4); CARBON DIOXIDE 26 mEq/l (22-31); CHLORIDE 113 mEq/L (97-110); CREATININE 1.4 mg/dL (0.7-1.3); GLOMERULAR FILTRATION RATE 49; GLUCOSE 78 mg/dL (70-100); MAGNESIUM 2.2 mg/dL (1.6-2.3); POTASSIUM 4.7 mEq/L (3.5-5.2); SODIUM 146 mEq/L (134-144)
[2016-05-02 07:04] LABS: SCAN POSITIVE
[2016-05-02 07:07] LABS: GIANT PLATELETS PRESENT; PLATELET ESTIMATE DECREASED (ADEQ)
--- NOTE | 2016-05-02 09:35 | SOAPPROG ---
SOAP Progress Note Assessment/Plan: Assessment: 81 MALE WITH PARTIAL SBO ?2/2 METASTATIC MELANOMA ABD SOFT/ +FLATUS/ NO PAIN/ HUNGRY 2-WAY IMPROVED RISKS AND OPTIONS FULLY DISCUSSED Plan: SBFT 05/02/16 09:33 Objective: Vital Signs Temp Pulse Resp BP Pulse Ox 36.7 C 90 18 165/73 H 95 05/02/16 08:00 05/02/16 08:00 05/02/16 08:00 05/02/16 08:00 05/02/16 08:00 Laboratory Results 05/02/16 05:24 05/02/16 05:24 05/01/16 05/02/16 05/03/16 05:59 05:59 05:59 Intake Total 4913 1438 1827 Output Total 400 500 Balance 6295 1757 1823 ICD10 Worksheet Patient Problems: Problems Problem Status Diagnosed Abdominal pain Acute Dehydration Acute Nausea and vomiting Acute Partial obstruction of small intestine Acute
[2016-05-02] MEDS: NS 1,000 ML IV SCH ×2 (11:13→17:53)
--- NOTE | 2016-05-02 15:05 | HOSPPROG ---
Hospitalist Progress Note Assessment/Plan: 81 yo M with malignant melanoma pw partial sbo, steven, hyperkalemia # acute small bowel obstruction- presumed secondary to hypercalcemia of malignancy- patient received Zometa on admission - passing flatus pain slightly improved overnight - CT on admit -small-bowel obstruction- bony metastatic disease- no intra-abdominal mass abdomen xray( personally reviewed and interpreted) persistent small-bowel obstruction - small-bowel follow-through ordered today - patient NPO with IV fluids - IV pain medication # STEVEN on CKD- suspect secondary to hypovolemia- creatinine 2.2 -> 1.4 oxygen saturations 99% on 2 L - continue IV fluids # hyperkalemia- responded to IV fluids - potassium 4.7 this morning - monitor BMP # hypercalcemia acute- calcium 11.9 on admission- > 8.4 - received Zometa - monitor BMP # metastatic melanoma- with vertebral biopsy showing metastatic melanoma- treated with nivolumab and ipilumumab- PET scan showing progression of disease. - oncology consulting - palliative Care consult for long-term goal planning # leukocytosis- suspect stress response - normalized with supportive care normal UA and CXR - on admission # hypothyroid- continue thyroid replacement # dispo: IP status, will need > 48 hours stay for eval/mgmt of above- requiring IV pain medications I discussed the case with surgery will order for small-bowel follow-through today Subjective: pain intensity improved today Objective: Vital Signs Temp Pulse Resp BP Pulse Ox 36.3 C 85 20 150/82 H 99 05/02/16 13:06 05/02/16 13:06 05/02/16 13:06 05/02/16 13:06 05/02/16 13:06 Laboratory Results 05/02/16 05:24 05/02/16 05:24 05/01/16 05/02/16 05/03/16 05:59 05:59 05:59 Intake Total 2219 3126 1825 Output Total 400 500 Balance 1819 2626 1825 - Physical Exam Constitutional: chronically ill appearing Eyes: anicteric sclera Ears, Nose, Mouth, Throat: moist mucous membranes Cardiovascular: regular rate and rhythym Respiratory: no respiratory distress, no rales or rhonchi Gastrointestinal: normoactive bowel sounds, soft, non-tender abdomen Genitourinary: no bladder fullness Skin: warm, normal color Musculoskeletal: No asymmetric calves Neurologic: AAOx3 Psychiatric: interacting appropriately Lymph, Heme, Immunologic: no cervical LAD ICD10 Worksheet Patient Problems: Problems Problem Status Diagnosed Abdominal pain Acute Dehydration Acute Nausea and vomiting Acute Partial obstruction of small intestine Acute
--- NOTE | 2016-05-02 17:40 | DX ---
Small Bowel Follow-Through Series Clinical History: 81-year-old male inpatient with a history of malignant melanoma with immunotherapy, presenting with abdominal pain on April 30, 2016 and noted to have a partial small bowel obstructi on, with persistent abdominal distention and nausea and vomiting. Evaluate for an SBO. Technique: Initially, a director immunology abdominal radiograph is obtained. Subsequently, the patient ingested ba rium, and sequential overhead radiographs were obtained at 30 minute intervals for 3 hours. 0.9 minut es of fluoroscopy time (exposure dose of 39.40 mGy) was also utilized. Comparison Studies: Abdominal radiography dated May 01, 2016, and unenhanced CT imaging the abdom en and pelvis dated April 30, 2016. Findings: The initial director immunology abdominal radiograph demonstrates bilateral nephrolithiasis, as well as a left-sided urinary bladder calculus. Prostate radiation implant seeds are seen at the level of the s ymphysis pubis, and there is a mild dextrorotatory lumbar scoliosis with multilevel degenerative haney ges. There is a relative paucity of air-filled loops of small bowel, with some thickening of the valv ulae conniventes seen in the left upper quadrant and some fecal material noted in the descending colo n and rectosigmoid. Following enteric contrast, there is filling of the stomach, which is moderately distended. The small bowel is now better visualized, and dilated measuring up to 5 cm in diameter with an associated "sta cked coin" appearance at the 60 minute time interval. There is a transition zone seen at the pelvic i nlet involving distal loops of jejunum, with small-calibered loops of small bowel distal to this. The re is some decrease in the degree of small bowel distention over time, although there is persistent e mildred of the wall, and there is some "flocculated" enteric contrast noted within the cecum and the asc ending colon with definite haustral markings confirmed at the 3 hour time frame (although contrast ma kes its way through the small bowel into the large bowel before this time interval). The above featur es are suggestive of a partial small bowel obstruction at the level of distal jejunum. I discussed findings with the patient at the time of exam performance, and I also conveyed the inform ation to Dr. Kristina Pineda who will discuss this further with Dr. Daniele Maurice. Impression: Partial small bowel obstruction involving the distal jejunum. A Document Only message has been documented for Daniele Maurice MD in the [email or web address] | Critical Result system on 05/02/2016 17:34, Message ID [id number].
[2016-05-02 18:39] LABS: POTASSIUM 4.5 mEq/L (3.5-5.2)
[2016-05-03] MEDS: HYDROmorphONE/DILAUDID 6 MG/30 ML PCA IV PRN (00:53)
--- NOTE | 2016-05-03 04:32 | HOSPPROG ---
Hospitalist Progress Note Assessment/Plan: EVENT NOTE RN called to inform me that patient had fallen with resulting head trauma. Apparently patient was having trouble falling asleep/agitated over in the night , so Ativan was given. After this, patient became more delirious and attempted to get out of bed. Bed alarm sounded and on RN's arrival at bedside, patient had fallen backward onto the bed, but hit his posterior head on his tray table. He did not lose consciousness, only complained of tenderness at the site of impact. On my evaluation, patient's VS were stable; on exam he was awake and alert, oriented to person and time; answering questions and following commands appropriately. There was a quarter-sized tender hematoma on this posterior scalp without abrasion or skin break; CN II-XII were grossly intact, moving all extremities equally. CT head was obtained and did not reveal any acute intracranial hemorrhage. No further intervention was indicated. Will discontinue lorazepam prn order as it appears to induce delirium. Tiffany Chavez, Objective: Vital Signs Temp Pulse Resp BP Pulse Ox 37.1 C 114 H 16 128/58 H 94 05/03/16 00:00 05/03/16 00:00 05/03/16 00:00 05/03/16 00:00 05/03/16 00:00 Laboratory Results 05/02/16 05:24 05/02/16 18:15 05/01/16 05/02/16 05/03/16 05:59 05:59 05:59 Intake Total 3653 8726 3826 Output Total 400 500 Balance 5149 4101 4282 ICD10 Worksheet Patient Problems: Problems Problem Status Diagnosed Abdominal pain Acute Dehydration Acute Nausea and vomiting Acute Partial obstruction of small intestine Acute
[2016-05-03 05:18] LABS: ADD MORPH? NO; ADD SCAN? YES; ATYPICAL LYMPHOCYTE FLAG 60 (0-99); FRAGMENT RBC FLAG 0 (0-99); HEMATOCRIT 36.6 % (40.0-51.0); HEMOGLOBIN 11.6 g/dL (13.7-17.5); LIPEMIA HEMOLYSIS FLAG 80 (0-99); MEAN CELL HEMOGLOBIN 28.9 pg (27.9-34.1); MEAN CELL HEMOGLOBIN CONCENTR. 31.7 g/dL (32.4-36.7); PLATELET CLUMPS FLAG 10 (0-99); PLATELET COUNT 125 10^3/uL (150-400); RED BLOOD CELL COUNT 4.02 10^6/uL (4.40-6.38)
[2016-05-03 05:19] LABS: LEFT SHIFT FLG 300 (0-99)
[2016-05-03 05:38] LABS: ANION GAP 7 mEq/L (8-16); CALCIUM 7.2 mg/dL (8.5-10.4); CARBON DIOXIDE 23 mEq/l (22-31); CHLORIDE 115 mEq/L (97-110); CREATININE 1.3 mg/dL (0.7-1.3); GLOMERULAR FILTRATION RATE 53; GLUCOSE 99 mg/dL (70-100); MAGNESIUM 2.1 mg/dL (1.6-2.3); POTASSIUM 4.1 mEq/L (3.5-5.2); SODIUM 145 mEq/L (134-144)
[2016-05-03 05:48] LABS: ADD DIFF? YES; SCAN POSITIVE
[2016-05-03 05:53] LABS: PLATELET ESTIMATE DECREASED (ADEQ)
[2016-05-03] MEDS: HEPARIN 5,000 UNIT/0.5 ML SYR SC SCH ×3 (06:27→21:23)
[2016-05-03] MEDS: LEVOTHYROXINE 25 MCG TAB PO SCH (06:27)
--- NOTE | 2016-05-03 08:14 | CT ---
Noncontrast CT Scan Head Reason for Examination: Closed head injury; evaluate for intracranial bleed. Technique: A noncontrast spiral acquisition was performed from the skull base to the vertex with axial images reformatted at 1.5 mm thickness. Sagittal and coronal reformations are performed and the examination is reviewed on the workstation at multiple window and level settings. Dose reduction techniques are employed. Findings: No masses, areas of hemorrhage, or extraaxial fluid collections are identified. There is age-appropriate generalized atrophy. Low-attention changes are seen in periventricular and subcortical white matter consistent with small vessel ischemic change. Vascular calcifications are noted. No calvarial abnormality is seen. The paranasal sinuses are clear. Impression: Negative for posttraumatic sequela, specifically, negative for intracranial hemorrhage. A preliminary report was called to the patient's nurse at 0310 hours. The final report is concordant with preliminary interpretation. POS99 MTDD
--- NOTE | 2016-05-03 09:38 | DX ---
Abdomen, Two Views 9:08 a.m. Indication: Follow up dilated small bowel. Technique: Upright and supine views. Comparison: Small bowel follow-through dated May 02, 2016, 2 view abdomen dated May [address] of the abdomen and pelvis dated April 30, 2016 Findings: Residual contrast layers in the stomach and is evenly distributed throughout the small and large bowel down to the level of the rectum. No residual dilated loops of small bowel. No air-fluid l evel or pneumoperitoneum. Impression: Favor improving adynamic ileus rather than mechanical obstruction.
--- NOTE | 2016-05-03 09:46 | SOAPPROG ---
SOAP Progress Note Assessment/Plan: Assessment/Plan: 81 Y M c melanoma and hx appy and prostate seeds c SBO. Confusion and fall c head strike overnight p ativan for sleeping. Head CT without acute findings. Ativan d/c'ed. SBFT c partial obstruction, but contrast does pass through. Abdominal xray shows stomach full of contrast. Add low dose reglan. Clears this morning. Hope to avoid surgery. If vomits, will need an NGT. S: Emesis and BM overnight. O: gen: alert, orients to place with prompting. still confused. no wob rrr abd soft, nt,+BS 05/03/16 10:32 Objective: Vital Signs Temp Pulse Resp BP Pulse Ox 36.6 C 107 H 3 L 133/80 H 94 05/03/16 07:36 05/03/16 07:36 05/03/16 07:36 05/03/16 07:36 05/03/16 07:36 Laboratory Results 05/03/16 04:22 05/03/16 04:22 05/02/16 05/03/16 05/04/16 05:59 05:59 05:59 Intake Total 3126 5336 Output Total 500 600 550 Balance 0700 1176 -965 ICD10 Worksheet Patient Problems: Problems Problem Status Diagnosed Abdominal pain Acute Dehydration Acute Nausea and vomiting Acute Partial obstruction of small intestine Acute
[2016-05-03] MEDS ORDERED: METOCLOPRAMIDE 10 MG/2 ML VIAL IVP PRN (10:31)
[2016-05-03] MEDS ORDERED: K PHOS 10 MMOL in D5W 250 ML IV ONE (12:00)
[2016-05-03] MEDS: NS 1,000 ML IV SCH ×2 (13:58→22:41)
--- NOTE | 2016-05-03 14:09 | HOSPPROG ---
Hospitalist Progress Note Assessment/Plan: 81 yo M with hx of malignant melanoma presenting with acute SBO # acute small bowel obstruction- presumed secondary to hypercalcemia of malignancy, reviewed abd xray from today and most c/w improving ileus rather than mechanical obstruction. Having BM and tolerating clears, likely will be able to advance diet today. # STEVEN on CKD- suspect secondary to hypovolemia- has continued to improve with IVF, now down to 1.3 from 2.2 # hyperkalemia- responded to IV fluids - potassium 4.7 this morning - monitor BMP # hypercalcemia acute- calcium 11.9 on admission- and now down to 7.2 - s/p Zometa # metastatic melanoma- with vertebral biopsy showing metastatic melanoma- treated with nivolumab and ipilumumab- PET scan showing progression of disease. - oncology consulting - palliative Care consult for long-term goal planning # leukocytosis- suspect stress response - normalized with supportive care normal UA and CXR - on admission # hypothyroid- continue thyroid replacement # dispo: IP status, will need > 48 hours stay for eval/mgmt of above- requiring IV pain medications Care plan reviewed with gen surgery, patients family present at bedside. Subjective: no significant overnight events, patient currently feeling better, has had bm's and passing gas, tolerating clears Objective: Vital Signs Temp Pulse Resp BP Pulse Ox 36.7 C 103 H 18 152/96 H 93 05/03/16 11:27 05/03/16 13:30 05/03/16 13:30 05/03/16 13:30 05/03/16 13:30 Laboratory Results 05/03/16 04:22 05/03/16 04:22 05/02/16 05/03/16 05/04/16 05:59 05:59 05:59 Intake Total 3126 5336 Output Total 500 600 550 Balance 2626 4736 -550 chronically ill appearing, nad anicteric op clear rrr no mrg cta dec at bases soft diffuse ttp no rebound or guarding normoactive bs no cce warm dry well perfused oriented appropriate ICD10 Worksheet Patient Problems: Problems Problem Status Diagnosed Abdominal pain Acute Dehydration Acute Nausea and vomiting Acute Partial obstruction of small intestine Acute
[2016-05-03] MEDS: METOCLOPRAMIDE 10 MG/2 ML VIAL IVP SCH ×3 (14:42→23:57)
--- NOTE | 2016-05-03 15:39 | SOAPPROG ---
SOAP Progress Note Assessment/Plan: Assessment: 1) Metastatic melanoma (currently receiving Immunotherapy with response) 2) Hypercalcemia of malignancy 3) Ileus secondary to #2. (resolving) 4) Confusion related to Ativan Plan: Patient now moving his bowels. His Imaging studies suggest ileus as opposed to SBO. It has improved with correction of his hypercalcemia. He is receiving immunotherapy as an outpatient, and early imaging studies suggest a response to therapy. This will be resumed as an outpatient. He exhibits confusion related to recent Ativan. He had a fall. Head CT showed no bleed. Ativan has been held. 05/01/16 12:37 05/03/16 15:35 Subjective: Patient now moving bowels. He became confused overnight after receiving Ativan. He had a fall as a result. Objective: Vital Signs Temp Pulse Resp BP Pulse Ox 36.7 C 103 H 18 152/96 H 93 05/03/16 11:27 05/03/16 13:30 05/03/16 13:30 05/03/16 13:30 05/03/16 13:30 Laboratory Results 05/03/16 04:22 05/03/16 04:22 05/02/16 05/03/16 05/04/16 05:59 05:59 05:59 Intake Total 3126 5336 Output Total 500 600 550 Balance 0128 5970 -611 - Time Spent With Patient Time Spent With Patient: 20 minutes Physical Exam - Physical Exam General Appearance: alert, no apparent distress EENT: PERRL/EOMI Respiratory: lungs clear Abdomen: normal bowel sounds, non-tender, soft Neuro/Psych: other (Mildly confused, but easily recognizes his confusion. No focal neuro deficit.) ICD10 Worksheet Patient Problems: Problems Problem Status Diagnosed Abdominal pain Acute Dehydration Acute Nausea and vomiting Acute Partial obstruction of small intestine Acute
[2016-05-03 19:29] LABS: POTASSIUM 3.6 mEq/L (3.5-5.2)
[2016-05-03] MEDS ORDERED: POTASSIUM CL 10 MEQ TAB PO ONE (20:27)
[2016-05-04] MEDS: NS 1,000 ML IV SCH ×3 (05:00→22:49)
[2016-05-04] MEDS: LEVOTHYROXINE 25 MCG TAB PO SCH (05:00)
[2016-05-04] MEDS: HEPARIN 5,000 UNIT/0.5 ML SYR SC SCH ×3 (05:00→21:01)
[2016-05-04] MEDS: METOCLOPRAMIDE 10 MG/2 ML VIAL IVP SCH ×3 (05:01→18:46)
[2016-05-04 05:55] LABS: MAGNESIUM 2.1 mg/dL (1.6-2.3); POTASSIUM 3.6 mEq/L (3.5-5.2)
[2016-05-04] MEDS ORDERED: POTASSIUM CL 10 MEQ TAB PO ONE ×2 (07:29→19:43)
[2016-05-04] MEDS ORDERED: K PHOS 15 MMOL in D5W 250 ML IV ONE ×2 (09:00→12:00)
--- NOTE | 2016-05-04 10:24 | SOAPPROG ---
SOAP Progress Note Assessment/Plan: Assessment: 81yo male with SBO/ilues, melanoma, xray yesterday concerning for contrast still in stomach feels things are improving, less upper GI "fullness", burping, 7 bouts of diarrhea in last 24 hours, minimal pain in abdomen on clear diet PE comfortable alert Chest CTA B/L abdomen mild distension, very soft and nontender to palpation Plan: continue to monitor, hopefully avoid surgery ok to have drake seen by Dr Maurice xray pending today of abdomen 05/04/16 10:21 05/04/16 10:24 Objective: Vital Signs Temp Pulse Resp BP Pulse Ox 36.9 C 55 L 17 147/68 H 97 05/04/16 08:00 05/04/16 08:00 05/04/16 08:00 05/04/16 08:00 05/04/16 08:00 Laboratory Results 05/03/16 04:22 05/04/16 04:30 05/03/16 05/04/16 05/05/16 05:59 05:59 05:59 Intake Total 5336 3718.8 Output Total 600 750 Balance 4736 2968.8 ICD10 Worksheet Patient Problems: Problems Problem Status Diagnosed Abdominal pain Acute Dehydration Acute Nausea and vomiting Acute Partial obstruction of small intestine Acute
--- NOTE | 2016-05-04 13:10 | DX ---
Abdomen Two Views 1039 Hours Indication: Follow-up obstruction Technique: Upright and supine views. Comparison: Abdominal radiograph from one day prior. Findings: Oral contrast continues to migrate downstream to the level of the anal verge. The colon is completely decompressed with extensive diverticulosis of the sigmoid colon. Decreased contrast reside s in the normal-caliber small bowel. Moderate volume of contrast remains in the stomach. Impression: 1. Resolving adynamic ileus versus partial bowel obstruction. 2. Gastroparesis. 3. Sigmoid diverticulosis.
--- NOTE | 2016-05-04 14:10 | HOSPPROG ---
Hospitalist Progress Note Assessment/Plan: 81 yo M with malignant melanoma pw partial sbo, steven, hyperkalemia # acute small bowel obstruction- presumed secondary to hypercalcemia of malignancy- s/p Zometa - passing flatus and stools CT on admit -small-bowel obstruction- bony metastatic disease- no intra- abdominal mass abdomen xray (personally reviewed and interpreted) resolving small-bowel obstruction - clear liquids and sherbert - IV pain medication # STEVEN on CKD- suspect secondary to hypovolemia- creatinine 2.2 -> 1.3 oxygen saturations 98% on 3 L - continue IV fluids # hyperkalemia- responded to IV fluids - potassium 3.6 this morning - monitor BMP # hypercalcemia acute- calcium 11.9 on admission- > 7.2 - received Zometa - monitor BMP # metastatic melanoma- with vertebral biopsy showing metastatic melanoma- treated with nivolumab and ipilumumab- PET scan showing progression of disease. - oncology consulting - palliative Care consult for long-term goal planning # leukocytosis- suspect stress response - normalized with supportive care normal UA and CXR - on admission # hypothyroid- continue thyroid replacement # dispo: IP status, will need > 48 hours stay for eval/mgmt of above- requiring IV pain medications- monitoring while advancing diet I discussed the case with surgery will allow ice cream sherbert- encourage ambulation Subjective: abdominal pain improved Objective: Vital Signs Temp Pulse Resp BP Pulse Ox 36.4 C 101 H 16 161/89 H 98 05/04/16 12:00 05/04/16 12:00 05/04/16 12:00 05/04/16 12:00 05/04/16 12:00 Laboratory Results 05/03/16 04:22 05/04/16 04:30 05/03/16 05/04/16 05/05/16 05:59 05:59 05:59 Intake Total 5336 3718.8 Output Total 600 750 Balance 4736 2968.8 - Physical Exam Constitutional: chronically ill appearing Eyes: anicteric sclera Ears, Nose, Mouth, Throat: moist mucous membranes Cardiovascular: regular rate and rhythym Respiratory: no respiratory distress, no rales or rhonchi Gastrointestinal: normoactive bowel sounds Genitourinary: no bladder fullness Skin: warm, normal color Musculoskeletal: No asymmetric calves Neurologic: AAOx3 Psychiatric: interacting appropriately, not anxious Lymph, Heme, Immunologic: no cervical LAD ICD10 Worksheet Patient Problems: Problems Problem Status Diagnosed Abdominal pain Acute Dehydration Acute Nausea and vomiting Acute Partial obstruction of small intestine Acute
[2016-05-04 19:34] LABS: POTASSIUM 3.6 mEq/L (3.5-5.2)
[2016-05-05] MEDS: METOCLOPRAMIDE 10 MG/2 ML VIAL IVP SCH ×4 (01:00→18:40)
[2016-05-05 05:36] LABS: HEMATOCRIT 36.6 % (40.0-51.0); HEMOGLOBIN 11.7 g/dL (13.7-17.5); MEAN CELL HEMOGLOBIN 28.6 pg (27.9-34.1); MEAN CELL VOLUME 89.5 fL (81.5-99.8); RED BLOOD CELL COUNT 4.09 10^6/uL (4.40-6.38); RED CELL DISTRIBUTION WIDTH 15.4 % (11.5-15.2)
[2016-05-05] MEDS: NS 1,000 ML IV SCH (05:38)
[2016-05-05] MEDS: LEVOTHYROXINE 25 MCG TAB PO SCH (05:41)
[2016-05-05] MEDS: HEPARIN 5,000 UNIT/0.5 ML SYR SC SCH (05:41)
[2016-05-05 06:31] LABS: ANION GAP 6 mEq/L (8-16); CALCIUM 6.4 mg/dL (8.5-10.4); CARBON DIOXIDE 18 mEq/l (22-31); CHLORIDE 121 mEq/L (97-110); GLOMERULAR FILTRATION RATE > 60; GLUCOSE 68 mg/dL (70-100); MAGNESIUM 1.9 mg/dL (1.6-2.3); POTASSIUM 4.2 mEq/L (3.5-5.2); SODIUM 145 mEq/L (134-144)
[2016-05-05] MEDS ORDERED: K PHOS 15 MMOL in D5W 250 ML IV ONE (12:00)
[2016-05-05] MEDS: ENOXAPARIN 40 MG/0.4 ML SYR SC SCH (12:09)
--- NOTE | 2016-05-05 13:37 | HOSPPROG ---
Hospitalist Progress Note Assessment/Plan: 81 yo M with malignant melanoma pw partial sbo, steven, hyperkalemia # acute small bowel obstruction- presumed secondary to hypercalcemia of malignancy- s/p Zometa - passing flatus and stools CT on admit -small-bowel obstruction- bony metastatic disease- no intra- abdominal mass abdomen xray (personally reviewed and interpreted) persistent contrast from small bowel follow-through on 05/02/2016 in the stomach - advancing to cream of wheat - continue Reglan # acute gastroparesis- persists is patient continues to have contrast from a study 3 days ago in his stomach - continue Reglan # STEVEN on CKD- suspect secondary to hypovolemia- now resolved- creatinine 2.2 -> 1.0 oxygen saturations 95% on 3 L - continue IV fluids # hyperkalemia- responded to IV fluids - potassium 4.2 this am- monitor BMP # hypophosphatemia- Aggressive repletion # hypercalcemia acute- calcium 11.9 on admission- > 6.4 correct for albumin is 7.1 - start calcium electrolyte protocol - received Zometa on admit - monitor BMP # metastatic melanoma- with vertebral biopsy showing metastatic melanoma- treated with nivolumab and ipilumumab- PET scan showing progression of disease. - oncology consulting - palliative Care consult for long-term goal planning # leukocytosis- suspect stress response - normalized with supportive care normal UA and CXR - on admission # hypothyroid- continue thyroid replacement # dispo-> 48 hours stay for continued monitoring and IV electrolyte repletion I discussed the case with surgery we will advance to cream of wheat today in follow patient's abdominal exam Subjective: denies pain Objective: Vital Signs Temp Pulse Resp BP Pulse Ox 36.5 C 95 19 150/108 H 95 05/05/16 11:58 05/05/16 11:58 05/05/16 11:58 05/05/16 11:58 05/05/16 11:58 Laboratory Results 05/05/16 05:19 05/05/16 05:19 05/04/16 05/05/16 05/06/16 05:59 05:59 05:59 Intake Total 3718.8 3300 Output Total 750 400 Balance 2968.8 2900 - Physical Exam Constitutional: chronically ill appearing Eyes: anicteric sclera Ears, Nose, Mouth, Throat: dry mucous membranes Cardiovascular: regular rate and rhythym Respiratory: no respiratory distress, no rales or rhonchi Gastrointestinal: normoactive bowel sounds, soft, non-tender abdomen Genitourinary: no bladder fullness Skin: warm Musculoskeletal: No asymmetric calves Neurologic: AAOx3 Psychiatric: interacting appropriately, not anxious Lymph, Heme, Immunologic: no cervical LAD ICD10 Worksheet Patient Problems: Problems Problem Status Diagnosed Abdominal pain Acute Dehydration Acute Nausea and vomiting Acute Partial obstruction of small intestine Acute
[2016-05-05] MEDS ORDERED: PROTOCOL CALCIUM 1 DOSE IV PRN (13:41)
[2016-05-05] MEDS ORDERED: CALCIUM GLUCONATE 50 ML IV ONE ×2 (14:49→18:00)
--- NOTE | 2016-05-05 15:02 | SOAPPROG ---
SOAP Progress Note Assessment/Plan: Assessment: 81yo male with SBO/ilues, melanoma, xray yesterday concerning for contrast still in stomach feels things are improving, less upper GI "fullness", burping, 7 bouts of diarrhea in last 24 hours, minimal pain in abdomen on clear diet PE comfortable alert Chest CTA B/L abdomen mild distension, very soft and nontender to palpation Plan: continue to monitor, hopefully avoid surgery ok to have drake seen by Dr Maurice xray pending today of abdomen 05/04/16 10:21 05/04/16 10:24 05/05/16 14:[address] Maurice Pt ate banana, no pain no N/V, xray demonstrates still sings of partial obstruction suspicious for mass PE comfortable abdomen soft nontender Plan Dr Maurice discussed plan with pt, friends and family on phone Will see how pt does over next 24hours. Xray in AM, NPO after midnight in case he does not do well clinically and needs surgery. Pt would like to avoid surgery. Hu Del Rosario PA-C Objective: Vital Signs Temp Pulse Resp BP Pulse Ox 36.5 C 95 19 150/108 H 95 05/05/16 11:58 05/05/16 11:58 05/05/16 11:58 05/05/16 11:58 05/05/16 11:58 Laboratory Results 05/05/16 05:19 05/05/16 05:19 05/04/16 05/05/16 05/06/16 05:59 05:59 05:59 Intake Total 3718.8 3300 Output Total 750 400 Balance 2968.8 2900 ICD10 Worksheet Patient Problems: Problems Problem Status Diagnosed Abdominal pain Acute Dehydration Acute Nausea and vomiting Acute Partial obstruction of small intestine Acute
--- NOTE | 2016-05-05 15:36 | DX ---
2 view abdomen series 0 826 hours. History: Follow-up small bowel obstruction. Nausea and vomiting. Findings: Comparison to May 04, 2016. There is some residual contrast present within mid small amanda wel loops and stomach with some air-fluid levels similar to the prior study although most the contras t has passed into the large bowel. Numerous uncomplicated diverticula are seen associated with the si gmoid colon. No free air is seen. No masses are evident. Impression: 1. Residual mild to moderate dilatation of mid small bowel loops with some contrast noted compatible with stable residual mild partial SBO. 2. Extensive uncomplicated diverticulosis of the sigmoid colon. 3. Residual contrast also noted in the stomach suggestive of gastroparesis.
[2016-05-05 15:50] LABS: IONIZED CALCIUM 0.99 MMOL/L (1.12-1.30)
--- NOTE | 2016-05-05 16:03 | SOAPPROG ---
SOAP Progress Note Assessment/Plan: Assessment: 1) Metastatic melanoma (currently receiving Immunotherapy) 2) Hypercalcemia of malignancy (resolved after Zometa) 3) Ileus secondary to #2. (resolving) 4) Confusion related to Ativan (resolved) Plan: His ileus continues to improve, though slowly. His Imaging studies suggest ileus as opposed to SBO. It has improved with correction of his hypercalcemia. I favor conservative management as opposed to surgical exploration. I think peritoneal carcinomatosis is possible, but unlikely. He is receiving immunotherapy as an outpatient, and early imaging studies suggest a mixed response to therapy. This will be resumed as an outpatient. Case d/w Dr. Dean and nursing. 05/01/16 12:37 05/03/16 15:35 05/05/16 15:53 Subjective: Patient now passing small amounts of liquid stool. He feels "full", but denies abdominal pain or nausea. Objective: Vital Signs Temp Pulse Resp BP Pulse Ox 36.6 C 118 H 19 133/106 H 93 05/05/16 15:38 05/05/16 15:38 05/05/16 15:38 05/05/16 15:38 05/05/16 15:38 Laboratory Results 05/05/16 05:19 05/05/16 05:19 05/04/16 05/05/16 05/06/16 05:59 05:59 05:59 Intake Total 3718.8 3300 Output Total 750 400 Balance 2968.8 2900 - Time Spent With Patient Time Spent With Patient: 20 minutes Physical Exam - Physical Exam General Appearance: alert, no apparent distress EENT: PERRL/EOMI Respiratory: lungs clear Abdomen: non-tender, soft, other (mild distension) Neuro/Psych: alert, normal mood/affect ICD10 Worksheet Patient Problems: Problems Problem Status Diagnosed Abdominal pain Acute Dehydration Acute Nausea and vomiting Acute Partial obstruction of small intestine Acute
[2016-05-05] MEDS ORDERED: K PHOS 20 MMOL in D5W 250 ML IV ONE (19:00)
[2016-05-05] MEDS: POTASSIUM/SODIUM PHOSPHATE 1 PKT PO SCH ×2 (19:56→20:06)
[2016-05-06] MEDS: METOCLOPRAMIDE 10 MG/2 ML VIAL IVP SCH ×5 (00:22→23:19)
[2016-05-06] MEDS ORDERED: ALBUTEROL 3 ML DEYVIAL ONE (01:23)
[2016-05-06] MEDS ORDERED: ALBUTEROL 3 ML DEYVIAL IH ONE (02:00)
[2016-05-06] MEDS: LEVOTHYROXINE 25 MCG TAB PO SCH (06:14)
[2016-05-06 07:29] LABS: HEMOGLOBIN 11.5 g/dL (13.7-17.5); IONIZED CALCIUM 1.03 MMOL/L (1.12-1.30); MEAN CELL HEMOGLOBIN 28.8 pg (27.9-34.1); MEAN CELL HEMOGLOBIN CONCENTR. 32.9 g/dL (32.4-36.7); MEAN CELL VOLUME 87.5 fL (81.5-99.8); RED CELL DISTRIBUTION WIDTH 15.4 % (11.5-15.2)
--- NOTE | 2016-05-06 07:45 | DX ---
Portable Chest 136 a.m. History: Dyspnea and wheezing, recent head injury, history of melanoma Comparison: April 30 Findings: Bilateral consolidation and infiltrate have developed, suspicious for pneumonia vs fluid ov erload with pulmonary edema. New minor blunting of the right costophrenic angle is consistent with a small pleural effusion. Heart size is stable and normal. Impression: Fluid overloading with pulmonary edema versus pneumonia.
[2016-05-06 07:47] LABS: ANION GAP 5 mEq/L (8-16); CALCIUM 6.5 mg/dL (8.5-10.4); CARBON DIOXIDE 22 mEq/l (22-31); CHLORIDE 116 mEq/L (97-110); GLOMERULAR FILTRATION RATE > 60; GLUCOSE 86 mg/dL (70-100); POTASSIUM 4.1 mEq/L (3.5-5.2); SODIUM 143 mEq/L (134-144)
[2016-05-06] MEDS ORDERED: CALCIUM GLUCONATE 50 ML IV ONE (08:35)
[2016-05-06] MEDS: ENOXAPARIN 40 MG/0.4 ML SYR SC SCH (08:58)
[2016-05-06] MEDS: FUROSEMIDE 20 MG/2 ML VIAL IVP SCH (08:59)
[2016-05-06] MEDS: POTASSIUM/SODIUM PHOSPHATE 1 PKT PO SCH ×4 (08:59→22:36)
[2016-05-06] MEDS ORDERED: K PHOS 10 MMOL in D5W 250 ML IV ONE (09:00)
--- NOTE | 2016-05-06 09:41 | SOAPPROG ---
SO[facility] Progress Note Assessment/Plan: Assessment: 81 MALE WITH PARTIAL SBO ?2/2 METASTATIC MELANOMA ABD SOFT/ +FLATUS/ NO PAIN/ HUNGRY 2-WAY IMPROVED RISKS AND OPTIONS FULLY DISCUSSED Plan: SBFT 05/02/16 09:33 05/06/16 09:39 REASONABLY COMFORTABLE TODAY PUT MINIMAL FLATUS AND MINIMAL P.O. INTAKE. ABDOMEN IS SOFT AND NONTENDER BUT SLIGHTLY DISTENDED WITH BOWEL SOUNDS. CHEST EXAM REVEALS SOME MILD RALES. CHEST X-RAY SHOWS SOME VASCULAR PLETHORA. STILL AWAITING TO A ABDOMEN FOR EVALUATION OF HIS SBO. PLAN IS SOME IV LASIX AND EVALUATION AFTER THE 2 ABDOMEN Objective: Vital Signs Temp Pulse Resp BP Pulse Ox 36.9 C 112 H 20 168/113 H 93 05/06/16 09:19 05/06/16 09:19 05/06/16 09:19 05/06/16 09:19 05/06/16 09:19 Laboratory Results 05/06/16 07:17 05/06/16 07:17 05/05/16 05/06/16 05/07/16 05:59 05:59 05:59 Intake Total 3300 1820 Output Total 400 750 Balance 2900 1070 ICD10 Worksheet Patient Problems: Problems Problem Status Diagnosed Abdominal pain Acute Dehydration Acute Nausea and vomiting Acute Partial obstruction of small intestine Acute
--- NOTE | 2016-05-06 14:23 | HOSPPROG ---
Hospitalist Progress Note Assessment/Plan: 81 yo M with malignant melanoma pw partial sbo, steven, hyperkalemia # acute small bowel obstruction- presumed secondary to hypercalcemia of malignancy- s/p Zometa - passing flatus and stools CT on admit -small-bowel obstruction- bony metastatic disease- no intra- abdominal mass abdomen xray-persistent contrast from small bowel follow-through on 2016 in the stomach there has been very little forward progress this week - dw Dr. Maurice - may take to OR for exploration if xray not improved - abd xray this am - continue Reglan # Acute hypoxic respiratory failure- chest x-ray (personally reviewed and interpreted) with volume overload oxygen saturations 95% on 3 L suspect secondary to continuous maintenance fluids - Lasix 20 IV daily # acute gastroparesis- persists is patient continues to have contrast from a study 3 days ago in his stomach - continue Reglan # STEVEN on CKD- suspect secondary to hypovolemia- now resolved- creatinine 2.2 -> 1.0 # hyperkalemia- responded to IV fluids - potassium 4.2 this am- monitor BMP # severe hypophosphatemia- Aggressive repletion # hypercalcemia now hypocalcemia - calcium 11.9 on admission- > 6.5 correct for albumin is 7.2 - start calcium electrolyte protocol - received Zometa on admit - monitor BMP # metastatic melanoma- with vertebral biopsy showing metastatic melanoma- treated with nivolumab and ipilumumab- oncology believes responding to therapy - and neck peritoneal carcinomatosis less likely - oncology consulting - palliative Care consult for long-term goal planning # leukocytosis- suspect stress response - normalized with supportive care normal UA and CXR - on admission # hypothyroid- continue thyroid replacement # dispo-> 48 hours stay for continued monitoring and IV electrolyte repletion I discussed the case with Dr. Maurice we will order drop abdominal film make surgical decisions based on progression Subjective: denies abdominal pain Objective: Vital Signs Temp Pulse Resp BP Pulse Ox 36.8 C 108 H 19 149/99 H 95 05/06/16 11:20 05/06/16 11:20 05/06/16 11:20 05/06/16 11:20 05/06/16 11:20 Laboratory Results 05/06/16 07:17 05/06/16 07:17 05/05/16 05/06/16 05/07/16 05:59 05:59 05:59 Intake Total 3300 1820 Output Total 348 984 2450 Balance 2900 1070 -1750 - Physical Exam Constitutional: chronically ill appearing Eyes: anicteric sclera Ears, Nose, Mouth, Throat: moist mucous membranes Cardiovascular: regular rate and rhythym Respiratory: no respiratory distress, inspiratory crackles Gastrointestinal: normoactive bowel sounds Genitourinary: no bladder fullness Skin: warm, normal color Musculoskeletal: No asymmetric calves Neurologic: AAOx3 Psychiatric: interacting appropriately, not anxious Lymph, Heme, Immunologic: no cervical LAD ICD10 Worksheet Patient Problems: Problems Problem Status Diagnosed Abdominal pain Acute Dehydration Acute Nausea and vomiting Acute Partial obstruction of small intestine Acute
--- NOTE | 2016-05-06 15:32 | DX ---
Two Views of the Abdomen History: Abdominal pain. Evaluate small bowel obstruction Comparison: Yesterday Findings: There is still dilated edematous loops of small bowel in the abdomen. The remaining barium has moved from the stomach and small bowel into the colon.. Air is no NG tube. No free air is identif ied. Impression: Persistent partial small bowel obstruction. Might this patient benefit from an NG tube?.
--- NOTE | 2016-05-06 17:19 | SOAPPROG ---
[facility] Progress Note Assessment/Plan: Assessment: 81 MALE WITH PARTIAL SBO ?2/2 METASTATIC MELANOMA ABD SOFT/ +FLATUS/ NO PAIN/ HUNGRY 2-WAY IMPROVED RISKS AND OPTIONS FULLY DISCUSSED Plan: SBFT 05/02/16 09:33 05/06/16 09:39 REASONABLY COMFORTABLE TODAY PUT MINIMAL FLATUS AND MINIMAL P.O. INTAKE. ABDOMEN IS SOFT AND NONTENDER BUT SLIGHTLY DISTENDED WITH BOWEL SOUNDS. CHEST EXAM REVEALS SOME MILD RALES. CHEST X-RAY SHOWS SOME VASCULAR PLETHORA. STILL AWAITING TO A ABDOMEN FOR EVALUATION OF HIS SBO. PLAN IS SOME IV LASIX AND EVALUATION AFTER THE 2 ABDOMEN 05/06/16 17:17 still hungry but exam unchanged/ 2-way slight improvement but still sugests partial bowel obstruction / plan is to try feeding again and if unsuccessful surgery tomorrow Objective: Vital Signs Temp Pulse Resp BP Pulse Ox 36.6 C 110 H 19 154/110 H 94 05/06/16 16:34 05/06/16 16:34 05/06/16 16:34 05/06/16 16:34 05/06/16 16:34 Laboratory Results 05/06/16 07:17 05/06/16 07:17 05/05/16 05/06/16 05/07/16 05:59 05:59 05:59 Intake Total 3300 1820 Output Total 667 015 5562 Balance 2900 1070 -1750 ICD10 Worksheet Patient Problems: Problems Problem Status Diagnosed Abdominal pain Acute Dehydration Acute Nausea and vomiting Acute Partial obstruction of small intestine Acute
[2016-05-06 18:52] LABS: POTASSIUM 3.8 mEq/L (3.5-5.2)
[2016-05-06] MEDS ORDERED: POTASSIUM CL 10 MEQ TAB PO ONE (19:25)
[2016-05-07] MEDS: LEVOTHYROXINE 25 MCG TAB PO SCH (05:25)
[2016-05-07] MEDS: METOCLOPRAMIDE 10 MG/2 ML VIAL IVP SCH ×4 (05:25→23:13)
[2016-05-07 05:31] LABS: IONIZED CALCIUM 1.03 MMOL/L (1.12-1.30)
[2016-05-07 06:00] LABS: ANION GAP 6 mEq/L (8-16); CALCIUM 7.2 mg/dL (8.5-10.4); CARBON DIOXIDE 25 mEq/l (22-31); CHLORIDE 108 mEq/L (97-110); GLOMERULAR FILTRATION RATE > 60; GLUCOSE 107 mg/dL (70-100); POTASSIUM 3.6 mEq/L (3.5-5.2); SODIUM 139 mEq/L (134-144)
[2016-05-07] MEDS ORDERED: POTASSIUM CL 10 MEQ TAB PO ONE (07:14)
[2016-05-07] MEDS ORDERED: CALCIUM GLUCONATE 50 ML IV ONE (07:15)
[2016-05-07] MEDS: FUROSEMIDE 20 MG/2 ML VIAL IVP SCH (08:18)
[2016-05-07] MEDS: POTASSIUM/SODIUM PHOSPHATE 1 PKT PO SCH ×4 (08:31→21:24)
[2016-05-07] MEDS: ENOXAPARIN 40 MG/0.4 ML SYR SC SCH (08:35)
--- NOTE | 2016-05-07 09:45 | SOAPPROG ---
[facility] Progress Note Assessment/Plan: Assessment: 81 MALE WITH PARTIAL SBO ?2/2 METASTATIC MELANOMA ABD SOFT/ +FLATUS/ NO PAIN/ HUNGRY 2-WAY IMPROVED RISKS AND OPTIONS FULLY DISCUSSED Plan: SBFT 05/02/16 09:33 05/06/16 09:39 REASONABLY COMFORTABLE TODAY PUT MINIMAL FLATUS AND MINIMAL P.O. INTAKE. ABDOMEN IS SOFT AND NONTENDER BUT SLIGHTLY DISTENDED WITH BOWEL SOUNDS. CHEST EXAM REVEALS SOME MILD RALES. CHEST X-RAY SHOWS SOME VASCULAR PLETHORA. STILL AWAITING TO A ABDOMEN FOR EVALUATION OF HIS SBO. PLAN IS SOME IV LASIX AND EVALUATION AFTER THE 2 ABDOMEN 05/06/16 17:17 still hungry but exam unchanged/ 2-way slight improvement but still sugests partial bowel obstruction / plan is to try feeding again and if unsuccessful surgery tomorrow 05/07/16 09:44 CONTINUES TO TOLERATE A DIET DESPITE X-RAY FINDINGS. ABDOMEN SOFT AND NONTENDER WITH SLIGHT DISTENTION. POSITIVE FLATUS AND BOWEL MOVEMENT. PLAN IS TO CONTINUE ORAL INTAKE WITH FOLLOW-UP X-RAYS Objective: Vital Signs Temp Pulse Resp BP Pulse Ox 36.8 C 102 H 14 168/86 H 87 L 05/07/16 07:55 05/07/16 07:55 05/07/16 07:55 05/07/16 08:37 05/07/16 08:37 Laboratory Results 05/06/16 07:17 05/07/16 05:05 05/06/16 05/07/16 05/08/16 05:59 05:59 05:59 Intake Total 1820 550 Output Total 750 2100 Balance 1070 -1550 ICD10 Worksheet Patient Problems: Problems Problem Status Diagnosed Abdominal pain Acute Dehydration Acute Nausea and vomiting Acute Partial obstruction of small intestine Acute
[2016-05-07] MEDS ORDERED: K PHOS 10 MMOL in D5W 250 ML IV ONE (12:00)
--- NOTE | 2016-05-07 15:41 | HOSPPROG ---
Hospitalist Progress Note Assessment/Plan: 81-year-old male with malignant melanoma, metastatic who presented with a SBO, a KI, and hyperkalemia. The SBO is resolved and he is moving his bowels at this time. He receives Zometa on admission and he now shows hypokalemia and hypophosphatemia and we are under repletion for this. Today new sudden on set of SVT is noted. Currently evaluation for this is ongoing he is without chest pain or shortness of breath. Patient is new to me today. * New onset SVT, appear regular with hypertension without chest pain or SOB. Will check labs, Ca++, Mg++, K+, ECG, CXR # acute small bowel obstruction- presumed secondary to hypercalcemia of malignancy- s/p Zometa - passing flatus and stools -moved bowels 3 times today # Acute hypoxic respiratory failure- chest x-ray (personally reviewed and interpreted) with volume overload oxygen saturations 95% on 3 L suspect secondary to continuous maintenance fluids - Lasix 20 IV daily # acute gastroparesis- seems to have resolved. Will continue reglan 1-2 more days # STEVEN on CKD- suspect secondary to hypovolemia- now resolved- creatinine 2.2 -> 1.0 # hyperkalemia- responded to IV fluids - potassium 4.2 this am- monitor BMP # severe hypophosphatemia- Aggressive repletion # hypercalcemia now hypocalcemia - calcium 11.9 on admission- > 6.5 correct for albumin is 7.2 - continue Ca++ repletion protocol - received Zometa on admit - monitor BMP # metastatic melanoma- with vertebral biopsy showing metastatic melanoma- treated with nivolumab and ipilumumab- oncology believes responding to therapy - and neck peritoneal carcinomatosis less likely - oncology consulting - palliative Care consult for long-term goal planning # leukocytosis- suspect stress response - normalized with supportive care normal UA and CXR - on admission # hypothyroid- continue thyroid replacement # dispo-> 48 hours stay for continued monitoring and IV electrolyte repletion Subjective: No complaints of chest pain shortness of breath. He said he suddenly felt hot and it was noted he was hypertensive and tachycardic with an SVT. Objective: Vital Signs Temp Pulse Resp BP Pulse Ox 37.1 C 106 H 16 140/92 H 90 L 05/07/16 11:49 05/07/16 11:49 05/07/16 11:49 05/07/16 11:49 05/07/16 11:49 Laboratory Results 05/06/16 07:17 05/07/16 05:05 05/06/16 05/07/16 05/08/16 05:59 05:59 05:59 Intake Total 1820 550 Output Total 750 2100 Balance 1070 -1550 - Physical Exam Constitutional: no apparent distress, chronically ill appearing Eyes: PERRL Ears, Nose, Mouth, Throat: moist mucous membranes, hearing normal Cardiovascular: tachycardia, other (SVT appears regular.) Respiratory: no respiratory distress, clear to auscultation Gastrointestinal: normoactive bowel sounds, soft, non-tender abdomen, no palpable masses Genitourinary: no bladder fullness Skin: warm Musculoskeletal: generalized weakness Neurologic: AAOx3, CN II-XII Intact Psychiatric: interacting appropriately ICD10 Worksheet Patient Problems: Problems Problem Status Diagnosed Abdominal pain Acute Dehydration Acute Nausea and vomiting Acute Partial obstruction of small intestine Acute
--- NOTE | 2016-05-07 17:40 | CPEKG ---
Heart Rate: 158 RR Interval: 380 P-R Interval: 224 QRSD Interval: 74 QT Interval: 288 QTC Interval: 467 P [place]: -35 QRS [place]: 64 T Wave [place]: 71 EKG Severity - ABNORMAL ECG - EKG Impression: SUPRAVENTRICULAR TACHYCARDIA EKG Impression: LOW VOLTAGE IN FRONTAL LEADS EKG Impression: BORDERLINE T WAVE ABNORMALITIES Electronically Signed By: Selwyn Mcpherson 07-May-2016 22:18:47
--- NOTE | 2016-05-07 17:49 | DX ---
Chest, One View Portable at 1731 hours History: New onset supraventricular tachycardia, pneumonitis.. Comparison: May 06, 2016 Findings: Slight improvement in aeration of both lungs with residual alveolar pneumonitis left perihi lar, left upper lobe, left lower lobe, and right upper lobe regions. Cardiac size silhouette within n ormal range with atherosclerotic aorta. No definite pneumothorax. Impression: 1. Improving bilateral pneumonitis asymmetrically more prominent left lung. 2. Atherosclerotic aorta. 3. No definite cardiomegaly.
--- NOTE | 2016-05-07 18:06 | SOAPPROG ---
SOAP Progress Note Assessment/Plan: Assessment: SOAP Progress Note Assessment/Plan: Assessment: 1) Metastatic melanoma (currently receiving Immunotherapy) 2) Hypercalcemia of malignancy (resolved after Zometa) 3) Ileus likely multifactorial, but much improved. Eating with bowel movements Plan: 1) Likely home soon with follow up with Dr. Amaya. 2) May need additional zometa as outpatient. 05/07/16 18:04 Subjective: eating pears. feeling hopeful Objective: Vital Signs Temp Pulse Resp BP Pulse Ox 36.4 C 155 H 18 146/101 H 91 L 05/07/16 16:03 05/07/16 16:45 05/07/16 16:03 05/07/16 16:45 05/07/16 16:03 Laboratory Results 05/06/16 07:17 05/07/16 05:05 05/06/16 05/07/16 05/08/16 05:59 05:59 05:59 Intake Total 1820 550 Output Total 750 2100 Balance 1070 -1550 Physical Exam - Physical Exam General Appearance: alert, no apparent distress Neck: supple Respiratory: lungs clear Abdomen: non-tender, soft Extremities: No pedal edema ICD10 Worksheet Patient Problems: Problems Problem Status Diagnosed Abdominal pain Acute Dehydration Acute Nausea and vomiting Acute Partial obstruction of small intestine Acute
[2016-05-07 18:19] LABS: % IMMATURE GRANULYOCYTES 1.8 % (0.0-1.1); ABSOLUTE IMMATURE GRANULOCYTES 0.18 10^3/uL (0.00-0.10); ADD DIFF? NO; ADD MORPH? NO; ADD SCAN? NO; ATYPICAL LYMPHOCYTE FLAG 0 (0-99); FRAGMENT RBC FLAG 20 (0-99); HEMATOCRIT 40.2 % (40.0-51.0); HEMOGLOBIN 13.5 g/dL (13.7-17.5); LEFT SHIFT FLG 10 (0-99); LIPEMIA HEMOLYSIS FLAG 80 (0-99); MEAN CELL HEMOGLOBIN 28.8 pg (27.9-34.1); MEAN CELL HEMOGLOBIN CONCENTR. 33.6 g/dL (32.4-36.7); MEAN CELL VOLUME 85.7 fL (81.5-99.8); MEAN PLATELET VOLUME 9.4 fL (8.7-11.7); PLATELET CLUMPS FLAG 0 (0-99); PLATELET COUNT 179 10^3/uL (150-400); RED BLOOD CELL COUNT 4.69 10^6/uL (4.40-6.38); RED CELL DISTRIBUTION WIDTH 14.9 % (11.5-15.2)
[2016-05-07] MEDS ORDERED: METOPROLOL TARTRATE 5 MG/5 ML INJ IVP ONE (18:19)
[2016-05-07 18:45] LABS: ALANINE AMINOTRANSFERASE 34 IU/L (21-72); ALBUMIN 2.7 g/dL (3.5-5.0); ALKALINE PHOSPHATASE 70 IU/L (38-126); ANION GAP 8 mEq/L (8-16); ASPARTATE AMINOTRANSFERASE 23 IU/L (17-59); BILIRUBIN,TOTAL 0.7 mg/dL (0.1-1.4); CALCIUM 8.2 mg/dL (8.5-10.4); CARBON DIOXIDE 28 mEq/l (22-31); CHLORIDE 103 mEq/L (97-110); GLOMERULAR FILTRATION RATE > 60; GLUCOSE 120 mg/dL (70-100); MAGNESIUM 1.6 mg/dL (1.6-2.3); POTASSIUM 4.5 mEq/L (3.5-5.2); SODIUM 139 mEq/L (134-144); TOTAL PROTEIN 5.3 g/dL (6.3-8.2)
[2016-05-07 19:27] LABS: COLOR PALE YELLOW; LEUKOCYTE ESTERASE,URINE NEGATIVE (NEGATIVE); NITRITE,URINE NEGATIVE (NEGATIVE)
[2016-05-07 19:31] LABS: MUCUS TRACE /lpf (NONE-1+)
[2016-05-07] MEDS: METOPROLOL TARTRATE 25 MG TAB PO SCH (21:39)
[2016-05-08 08:19] LABS: IONIZED CALCIUM 1.12 MMOL/L (1.12-1.30)
[2016-05-08 08:22] LABS: % IMMATURE GRANULYOCYTES 1.9 % (0.0-1.1); ABSOLUTE IMMATURE GRANULOCYTES 0.18 10^3/uL (0.00-0.10); ADD DIFF? NO; ADD MORPH? NO; ADD SCAN? NO; ATYPICAL LYMPHOCYTE FLAG 10 (0-99); FRAGMENT RBC FLAG 10 (0-99); HEMATOCRIT 36.1 % (40.0-51.0); HEMOGLOBIN 12.2 g/dL (13.7-17.5); LEFT SHIFT FLG 10 (0-99); LIPEMIA HEMOLYSIS FLAG 90 (0-99); MEAN CELL HEMOGLOBIN 28.8 pg (27.9-34.1); MEAN CELL HEMOGLOBIN CONCENTR. 33.8 g/dL (32.4-36.7); MEAN CELL VOLUME 85.3 fL (81.5-99.8); MEAN PLATELET VOLUME 9.3 fL (8.7-11.7); PLATELET CLUMPS FLAG 0 (0-99); PLATELET COUNT 172 10^3/uL (150-400); RED BLOOD CELL COUNT 4.23 10^6/uL (4.40-6.38); RED CELL DISTRIBUTION WIDTH 14.7 % (11.5-15.2)
[2016-05-08 08:36] LABS: ALANINE AMINOTRANSFERASE 36 IU/L (21-72); ALBUMIN 2.5 g/dL (3.5-5.0); ANION GAP 5 mEq/L (8-16); ASPARTATE AMINOTRANSFERASE 27 IU/L (17-59); BILIRUBIN,TOTAL 0.6 mg/dL (0.1-1.4); CALCIUM 8.3 mg/dL (8.5-10.4); CARBON DIOXIDE 27 mEq/l (22-31); CHLORIDE 105 mEq/L (97-110); GLOMERULAR FILTRATION RATE > 60; GLUCOSE 104 mg/dL (70-100); POTASSIUM 3.9 mEq/L (3.5-5.2); SODIUM 137 mEq/L (134-144); TOTAL PROTEIN 4.9 g/dL (6.3-8.2)
[2016-05-08] MEDS ORDERED: CALCIUM GLUCONATE 50 ML IV ONE (09:04)
[2016-05-08] MEDS ORDERED: POTASSIUM CL 10 MEQ TAB PO ONE ×2 (09:05→14:00)
[2016-05-08] MEDS: METOCLOPRAMIDE 10 MG/2 ML VIAL IVP SCH ×4 (09:23→23:10)
[2016-05-08] MEDS: LEVOTHYROXINE 25 MCG TAB PO SCH (09:24)
[2016-05-08] MEDS: FUROSEMIDE 20 MG/2 ML VIAL IVP SCH (09:24)
[2016-05-08] MEDS: METOPROLOL TARTRATE 25 MG TAB PO SCH ×2 (09:24→21:27)
[2016-05-08] MEDS: POTASSIUM/SODIUM PHOSPHATE 1 PKT PO SCH ×4 (09:24→21:27)
[2016-05-08] MEDS: ENOXAPARIN 40 MG/0.4 ML SYR SC SCH (09:24)
--- NOTE | 2016-05-08 09:24 | SOAPPROG ---
SOAP Progress Note Assessment/Plan: Assessment/Plan: 81 Y M c melanoma and hx appy and prostate seeds c SBO. Clinically patient seems to be doing well--eating small amount of solid food, having solid bowel movements, denies pain or nausea. Still, films suggest obstruction. Repeat AXR this am. Discussed situation with patient and family. Could go to OR for laparoscopy. Patient would prefer to eat more and see how he does. If he does well we could follow him as an outpatient. Await AXR. S: No pain. No nausea. Multiple solid BMs. O: gen: alert, orients to place with prompting. still confused. no wob rrr abd soft, nt,+BS 05/08/16 09:17 Objective: Vital Signs Temp Pulse Resp BP Pulse Ox 37.0 C 96 15 151/92 H 95 05/08/16 07:30 05/08/16 07:30 05/08/16 07:30 05/08/16 07:30 05/08/16 07:30 Laboratory Results 05/08/16 08:11 05/08/16 08:11 05/07/16 05/08/16 05/09/16 05:59 05:59 05:59 Intake Total 550 150 Output Total 2100 400 Balance -1550 -250 ICD10 Worksheet Patient Problems: Problems Problem Status Diagnosed Abdominal pain Acute Dehydration Acute Nausea and vomiting Acute Partial obstruction of small intestine Acute
--- NOTE | 2016-05-08 10:03 | HOSPPROG ---
Hospitalist Progress Note Assessment/Plan: 81-year-old male with malignant melanoma, metastatic who presented with a SBO, a KI, and hyperkalemia. SBO improving New onset SVT, appear regular with hypertension without chest pain or SOB. Will check labs, Ca++, Mg++, K+, ECG, CXR dc tele on po metoprolol started last night will continue today, possible dc in AM acute small bowel obstruction- presumed secondary to hypercalcemia of malignancy- s/p Zometa - passing flatus and stools -moved bowels many times yesterday Acute hypoxic respiratory failure- chest x-ray (personally reviewed and interpreted) with volume overload oxygen saturations 95% on 3 L suspect secondary to continuous maintenance fluids - Lasix 20 IV daily acute gastroparesis- seems to have resolved. Will continue reglan 1-2 more days STEVEN on CKD- suspect secondary to hypovolemia- now resolved- creatinine 2.2 - > 1.0 hyperkalemia- resolved severe hypophosphatemia- Aggressive repletion hypercalcemia now hypocalcemia - calcium 11.9 on admission- > 6.5 correct for albumin is 7.2 - continue Ca++ repletion protocol - received Zometa on admit - monitor BMP metastatic melanoma- with vertebral biopsy showing metastatic melanoma- treated with nivolumab and ipilumumab- oncology believes responding to therapy - and neck peritoneal carcinomatosis less likely - oncology consulting - palliative Care consult for long-term goal planning leukocytosis- suspect stress response - normalized with supportive care normal UA and CXR - on admission hypothyroid- continue thyroid replacement dispo->inpatient proph: lmwh Subjective: multiple BM's yesterday. tele- no further SVT (interp by me). case d/w dr velarde and team Objective: Vital Signs Temp Pulse Resp BP Pulse Ox 37.0 C 96 15 151/92 H 95 05/08/16 07:30 05/08/16 07:30 05/08/16 07:30 05/08/16 07:30 05/08/16 07:30 Laboratory Results 05/08/16 08:11 05/08/16 08:11 05/07/16 05/08/16 05/09/16 05:59 05:59 05:59 Intake Total 550 150 Output Total 2100 400 Balance -1550 -250 - Physical Exam Constitutional: no apparent distress, appears nourished Eyes: PERRL, anicteric sclera Ears, Nose, Mouth, Throat: moist mucous membranes, hearing normal Cardiovascular: regular rate and rhythym, no murmur, rub, or gallop Respiratory: no respiratory distress, no rales or rhonchi Gastrointestinal: other (hypoactive bowel sounds), No guarding, No rebound, No distension Genitourinary: No francisco in urethra Skin: warm, normal color Musculoskeletal: full muscle strength Neurologic: AAOx3, sensation intact bilaterally Psychiatric: interacting appropriately, not anxious ICD10 Worksheet Patient Problems: Problems Problem Status Diagnosed Abdominal pain Acute Dehydration Acute Nausea and vomiting Acute Partial obstruction of small intestine Acute
--- NOTE | 2016-05-08 13:20 | DX ---
Supine And Upright Abdomen History: Follow up small bowel obstruction. Comparison: Abdomen plain film May 06, 2016, CT abdomen and pelvis April 30, 2016. Portable ibrahima st May 07, 2016. Findings: Dilated small bowel in the central upper abdomen has not significantly changed in maximal d iameter, measuring up to 3.8 cm. The length of the dilated small bowel appears to be slightly decreas ed. There is no visible free air. Retained contrast outlines numerous colonic diverticula. Platelike atelectasis is present in the right chest with stable indistinct patchy left perihilar opacities. Sma ll pleural effusions are present. Nephrolithiasis and a distal left ureteral/bladder calcification ar e again noted. The bones are stable with multiple osseous metastases better seen on CT. Brachytherapy seeds are noted in the prostate. Impression: Equivocal improvement in partial small bowel obstruction.
--- NOTE | 2016-05-08 14:41 | SOAPPROG ---
SOAP Progress Note Assessment/Plan: Assessment/Plan: 81 yo man w metastatic melanoma who p/w ileus/pSBO and hypercalcemia; also developed SVT yesterday 1. pSBO - plain films show persistent obstruction but clinically much improved Would like to avoid surgery if possible Diet advanced to full and so far, pt doing well Consider home soon w conservative management 2. Hypercalcemia - likely contributed to #1 s/p zometa Calcium much improved consider checking PTH as outpt may need more Zometa as outpt; does have antonio disease from melanoma 3. Metastatic melanoma - most recently on ipilumumab/nivolumab Recent scans show response (somewhat mixed but do not think he has failed therapy) follow up w Dr Amaya as outpt 4. SVT - appreciate IM, on Bblocker 05/08/16 14:41 05/08/16 14:45 Subjective: No acute events about to eat Denies pain + BM yesterday + flatus Objective: Vital Signs Temp Pulse Resp BP Pulse Ox 37.0 C 71 16 155/87 H 93 05/08/16 07:30 05/08/16 11:56 05/08/16 11:56 05/08/16 11:56 05/08/16 11:56 Laboratory Results 05/08/16 08:11 05/08/16 08:11 05/07/16 05/08/16 05/09/16 05:59 05:59 05:59 Intake Total 550 150 350 Output Total 2100 400 225 Balance -1550 -250 125 Gen -elderly, chronically ill but NAD Neck - supple CV - RRR Chest - CTAB Abd - soft, NT, BS+ Ext - no edema Neuro - nonfocal ICD10 Worksheet Patient Problems: Problems Problem Status Diagnosed Abdominal pain Acute Dehydration Acute Nausea and vomiting Acute Partial obstruction of small intestine Acute
[2016-05-08] MEDS ORDERED: traZODone 50 MG TAB PO PRN (16:16)
--- NOTE | 2016-05-08 17:29 | PDPCPN ---
Palliative Care Progress Note Assessment/Plan: Referring provider: Dr Dean Reason for consult: Complex medical decision making Symptom control HPI: Elvin Escobar is a 81 yo male with PMH prostate CA, HTN and metastatic melanoma admitted to the hospital with abdominal pain and nausea/vomiting. Found to have SBO with hypercalcemia s/p zometa. SBO has slowly resolved with medical management. Getting treatment for melanoma. Over the past few months has lost significant weight with poor appetite. Palliative care consulted for complex medical decision making. Met with daughter Armando, at the bedside discussed goals of care. Elvin feels he would still like to continue with treatment as he feels relatively well with some life prolonging measures. We discussed code status as well as MDPOA. He would like his daughter Armando to be MDPOA and filled out a MOST form with DNR/DNI. Assessment: Physical: - Pain: abdominal pain resolved -tylenol PRN - Nausea/vomiting: resolved - on reglan - poor appetite - general diet - nutrition seeing - can consider other measures for appetite stimulation if persists after SBO resolves. Emotional/psychological: doing ok with support from family. Advanced Care Planning: Is patient decisional?: Yes Code Status: DNR/DNI- MOST form filled out today MD RAMOS: daughter Armando is MDPOA Plan: Home when medically ready. Continuing treatment at [facility]. 05/08/16 17:36 05/08/16 17:42 Subjective: I'm doing ok Objective: Social History: to [place]. Lives with daughter Mallorie. Medication list reviewed ROS: General: fatigue, weakness, weight loss ENT: negative Resp: negative GI: poor appetite, constipation : negative MS: negative Skin: negative Neuro: negative Psych: negative Functional assessment: PPS: 60% Functional status: needs assistance with some ADLs. Vital Signs Temp Pulse Resp BP Pulse Ox 36.3 C 85 16 159/82 H 94 05/08/16 15:14 05/08/16 15:14 05/08/16 15:14 05/08/16 15:14 05/08/16 15:14 Laboratory Results 05/08/16 08:11 05/08/16 08:11 05/07/16 05/08/16 05/09/16 05:59 05:59 05:59 Intake Total 550 150 350 Output Total 2100 400 225 Balance -1550 -250 125 Physical Exam - Physical Exam General Appearance: alert, no apparent distress Respiratory: No respiratory distress, No accessory muscle use Skin: normal color, warm/dry Extremities: pedal edema (trace) Neuro/Psych: alert, oriented x 3 ICD10 Worksheet Patient Problems: Problems Problem Status Diagnosed Abdominal pain Acute Dehydration Acute Nausea and vomiting Acute Palliative care encounter Acute Partial obstruction of small intestine Acute - ICD10 Problem Qualifiers (1) Palliative care encounter
[2016-05-08 20:11] LABS: ALKALINE PHOSPHATASE 54 IU/L (38-126)
[2016-05-09 05:06] LABS: IONIZED CALCIUM 1.13 MMOL/L (1.12-1.30)
[2016-05-09] MEDS: LEVOTHYROXINE 25 MCG TAB PO SCH (07:19)
[2016-05-09] MEDS: METOCLOPRAMIDE 10 MG/2 ML VIAL IVP SCH (07:19)
[2016-05-09 08:27] VITALS: BP 139/81; RESP 18; TEMP 99.9
[2016-05-09] MEDS: FUROSEMIDE 20 MG/2 ML VIAL IVP SCH (09:07)
[2016-05-09] MEDS: ENOXAPARIN 40 MG/0.4 ML SYR SC SCH (09:07)
[2016-05-09] MEDS: METOPROLOL TARTRATE 25 MG TAB PO SCH (09:08)
[2016-05-09] MEDS: POTASSIUM/SODIUM PHOSPHATE 1 PKT PO SCH (09:08)
--- NOTE | 2016-05-09 09:17 | SOAPPROG ---
SOAP Progress Note Assessment/Plan: Assessment/Plan: 81 Y M c melanoma and hx appy and prostate seeds c SBO. Eating without pain or nausea. +BMs. AXR unchanged. Discussion of options with patient and family. Family opting to go home with outpatient f/u. We discussed s /s of recurrent SBO. Optimistic that patient will do well and can resume treatment for melanoma. S: No pain. No nausea. Multiple solid BMs. O: gen: alert, nad no wob rrr abd soft, nt,+BS 05/09/16 09:14 Objective: Vital Signs Temp Pulse Resp BP Pulse Ox 37.7 C 78 18 139/81 H 93 05/09/16 08:22 05/09/16 08:22 05/09/16 08:22 05/09/16 08:22 05/09/16 08:22 Laboratory Results 05/08/16 08:11 05/08/16 08:11 05/08/16 05/09/16 05/10/16 05:59 05:59 05:59 Intake Total 150 1450 Output Total 400 1325 Balance -250 125 ICD10 Worksheet Patient Problems: Problems Problem Status Diagnosed Abdominal pain Acute Dehydration Acute Nausea and vomiting Acute Palliative care encounter Acute Partial obstruction of small intestine Acute
--- NOTE | 2016-05-09 09:45 | HOSPPROG ---
Hospitalist Progress Note Assessment/Plan: 81-year-old male with malignant melanoma, metastatic who presented with a SBO, a KI, and hyperkalemia. SBO improving New onset SVT, appear regular with hypertension without chest pain or SOB. Will check labs, Ca++, Mg++, K+, ECG, CXR dc tele on po metoprolol started last night will continue today, possible dc in AM none further acute small bowel obstruction- presumed secondary to hypercalcemia of malignancy- s/p Zometa - passing flatus and stools -moved bowels many times yesterday Acute hypoxic respiratory failure- chest x-ray (personally reviewed and interpreted) with volume overload oxygen saturations 95% on 3 L suspect secondary to continuous maintenance fluids - Lasix 20 IV daily acute gastroparesis- seems to have resolved. Will continue reglan 1-2 more days STEVEN on CKD- suspect secondary to hypovolemia- now resolved- creatinine 2.2 - > 1.0 hyperkalemia- resolved severe hypophosphatemia- Aggressive repletion hypercalcemia now hypocalcemia - calcium 11.9 on admission- > 6.5 correct for albumin is 7.2 - continue Ca++ repletion protocol - received Zometa on admit - monitor BMP metastatic melanoma- with vertebral biopsy showing metastatic melanoma- treated with nivolumab and ipilumumab- oncology believes responding to therapy - and neck peritoneal carcinomatosis less likely - oncology consulting - palliative Care consult for long-term goal planning leukocytosis- suspect stress response - normalized with supportive care normal UA and CXR - on admission hypothyroid- continue thyroid replacement dispo- home today > 30 minutes proph: lmwh Subjective: eating. moving bowels, no abd pain Objective: Vital Signs Temp Pulse Resp BP Pulse Ox 37.7 C 78 18 139/81 H 89 L 05/09/16 08:22 05/09/16 08:22 05/09/16 08:22 05/09/16 08:22 05/09/16 09:36 Laboratory Results 05/08/16 08:11 05/08/16 08:11 05/08/16 05/09/16 05/10/16 05:59 05:59 05:59 Intake Total 150 1450 Output Total 400 1325 Balance -250 125 - Physical Exam Constitutional: no apparent distress, appears nourished Eyes: PERRL, anicteric sclera Ears, Nose, Mouth, Throat: moist mucous membranes, hearing normal Cardiovascular: regular rate and rhythym, no murmur, rub, or gallop Respiratory: no respiratory distress, no rales or rhonchi Gastrointestinal: normoactive bowel sounds, soft, non-tender abdomen Genitourinary: No francisco in urethra Skin: warm, normal color Musculoskeletal: full muscle strength, no muscle tenderness Neurologic: AAOx3 ICD10 Worksheet Patient Problems: Problems Problem Status Diagnosed Abdominal pain Acute Dehydration Acute Nausea and vomiting Acute Palliative care encounter Acute Partial obstruction of small intestine Acute
--- NOTE | 2016-05-09 09:46 | PDIAF ---
- Diagnosis Diagnosis: SBO, metastatic melanoma Code Status: Do Not Resuscitate - Medication Management Discharge Medications: Medications to Continue on Transfer Cholecalciferol Vit D3 [Vitamin D3 2000 units tab (OTC)] 5,000 units PO DAILY [Last Taken 04/27/16] Cyanocobalamin [Vitamin B12 (*)] 100 mcg PO DAILY 04/30/16 [Last Taken 04/28/16] Docusate Sodium [Colace 100 MG (*)] 100 mg PO BID PRN 04/30/16 [Last Taken 04/29] Herbals/Supplements -Info Only 1 ea PO DAILY 04/30/16 [Last Taken 04/30/16] Ipilimumab [Yervoy] 50 mg IV ONCE 04/30/16 [Last Taken 04/09/16] Levothyroxine [Synthroid 25 mcg (*)] 25 mcg PO DAILY06 04/30/16 [Last Taken ] Naproxen Sodium [Aleve 220 MG (*)] 220 - 440 mg PO BID PRN 04/30/16 [Last Taken 04/28/16] Nivolumab [Opdivo] 40 mg IV ONCE 04/30/16 [Last Taken 04/09/16] Prochlorperazine Maleate [Compazine 10mg (*)] 10 mg PO Q6HRS PRN 04/30/16 [Last Taken 04/30/16 06:00] Discharge Medications: Refer to the Discharge Home Medication list for PRN reason. - Orders Services needed: Home Mcfp Care Face to Face: I certify that this patient was under my care and that I had the required [id number] encounter meeting the encounter requirements on the discharge day. My findings support the fact that the patient is homebound as defined in CMS Chapter 7 Medicare Benefits Manual 30.1.1, The condition of the patient is such that there exists a normal inability to leave home and consequently, leaving home would require a considerable and taxing effort. - Follow Up Care Current Providers and Referrals: Primo Tavares MD [Primary Care Provider] - As per Instructions Daniele Maurice MD [Medical Doctor] - follow up in 1 week
--- NOTE | 2016-05-09 10:26 | GDS ---
[f rep st] DISCHARGE SUMMARY DISCHARGE DIAGNOSES: 1. Metastatic melanoma with osseous metastases. 2. Small bowel obstruction with resolution without surgery. 3. Multiple electrolyte abnormalities including hypophosphatemia, hypocalcemia, hypokalemia. 4. Hypocalcemia, attributed to bisphosphonate therapy. 5. Supraventricular tachycardia with resolution. 6. Acute hypoxemic respiratory failure, now resolved. CONSULTS DURING THIS ADMISSION: General Surgery and Oncology. HOSPITAL COURSE: Please see admission history and physical by Dr. Avelina Yusuf, as well as consul tation by Dr. Conor Daniel. The patient presented with abdominal pain. He had a CT showing a smal l bowel obstruction with transition point in the mid jejunum. He underwent conservative management. On the , his abdominal film, interpreted by me, showed equivocal resolution; however, he was eati ng and having bowel movements and was anxious for discharge. He is discharged home today with outpat ient followup with Oncology as well as General Surgery. CODE STATUS: Please note, the patient is Do Not Resuscitate. /[id number]/MODL
[2016-05-09 11:45] VITALS: PULSE 84; O2SAT 93
== END 2016-05-09 12:08 | disposition home health service (06) | DRG 388 ==
LOC: F2W 13:24 → OBSVTOIN 14:10
PROVIDERS: ADMIT Internal Medicine; ATTEND Internal Medicine
DX: K56.60 Unspecified intestinal obstruction (principal); J96.01 Acute respiratory failure with hypoxia; C43.39 Malignant melanoma of other parts of face; C79.51 Secondary malignant neoplasm of bone; I47.1 Supraventricular tachycardia; N17.9 Acute kidney failure, unspecified; N18.9 Chronic kidney disease, unspecified; E87.5 Hyperkalemia; E83.51 Hypocalcemia; E83.39 Other disorders of phosphorus metabolism; E03.9 Hypothyroidism, unspecified
CPT/HCPCS: 96374; 97110-GP; 97116-GP; 97163-GP; 97165-GO; 97530-GO; 97535-GO; G8978-GP-CI; G8978-GP-CK; G8979-GP-CI; G8980-GP-CI; G8987-GO-CI; G8988-GO-CI; J0610; J1170; J1650; J2405; J2430; J2765; J3489

== ENCOUNTER 2016-06-13 15:52 | Inpatient (IN) | payer OTHER ==
[2016-06-13] MEDS ORDERED: HYDROmorphONE/DILAUDID 1 MG/ML SYR IVP PRN (16:37)
[2016-06-13] MEDS ORDERED: ONDANSETRON DISINTEGRATING 4 MG TAB PO PRN (16:37)
--- NOTE | 2016-06-13 17:27 | PDGENHP ---
History and Physical - Chief Complaint Acute abdominal pain - History of Present Illness Primary care provider: Dr. Amaya Primary general surgeon: Dr. Maurice HPI: 81-year-old male presenting with acute abdominal pain characterized as an aching pain located in his mid epigastric area with associated nausea vomiting and constipation. Onset of symptoms was approximately 2 days ago and duration has been persistent thereafter. The patient has been receiving IV fluids at the [facility]. He presented for 2 L of normal saline today, and his symptoms of nausea and vomiting rendered him unable to tolerate oral intake and requiring direct admission. He reports that his last oral intake of solids and liquids was on the morning of this presentation, and he currently has no appetite. He reports that his nausea is made worse by oral intake, somewhat alleviated by massaging his abdominal area as well as vomiting. His last bowel movement was on the morning of presentation, described as small and hard. The patient is very concerned about recurrent small bowel obstruction and he would like to discuss his situation with a surgeon. History Information - Allergies/Home Medication List Allergies/Adverse Reactions: No Known Allergies Allergy (Verified 04/30/16 09:16) Home Medications: Cholecalciferol Vit D3 [Vitamin D3 2000 units tab (OTC)] 5,000 units PO DAILY [Last Taken 04/27/16] Cyanocobalamin [Vitamin B12 (*)] 100 mcg PO DAILY 04/30/16 [Last Taken 04/28/16] Docusate Sodium [Colace 100 MG (*)] 100 mg PO BID PRN 04/30/16 [Last Taken 04/29] Herbals/Supplements -Info Only 1 ea PO DAILY 04/30/16 [Last Taken 04/30/16] Ipilimumab [Yervoy] 50 mg IV ONCE 04/30/16 [Last Taken 04/09/16] Levothyroxine [Synthroid 25 mcg (*)] 25 mcg PO DAILY06 04/30/16 [Last Taken ] Naproxen Sodium [Aleve 220 MG (*)] 220 - 440 mg PO BID PRN 04/30/16 [Last Taken 04/28/16] Nivolumab [Opdivo] 40 mg IV ONCE 04/30/16 [Last Taken 04/09/16] Prochlorperazine Maleate [Compazine 10mg (*)] 10 mg PO Q6HRS PRN 04/30/16 [Last Taken 04/30/16 06:00] I have personally reviewed and updated: family history, medical history, social history, surgical history - Past Medical History coronary artery disease, cancer (metastatic melanoma last treatment March 2016 with radiation to the chest and prostate cancer), hypertension, hyperlipidemia Additional medical history: Chronic kidney disease stage 3 with baseline creatinine 1.3-1.5. Recurrent small bowel obstruction most recently in May of 2016. Provoked SVT - Surgical History Reports: appendectomy Additional surgical history: melanoma resection on chin. vertebral biopsy. tonsillectomy - Family History Additional family history: No recent sick family contacts - Social History Smoking Status: Former smoker Alcohol Use: Rarely Drug Use: None Additional social history: , partially retired [employer]. Independent in ADLs Review of Systems ROS: 10pt was reviewed & negative except for what was stated in HPI & below Constitutional: Reports: weakness Gastrointestinal: Reports: vomitting, abdominal pain, constipation, nausea Physical Exam Constitutional: no apparent distress, not in pain, chronically ill appearing, No uncomfortable Eyes: PERRL, anicteric sclera, EOMI Ears, Nose, Mouth, Throat: moist mucous membranes, hearing normal, ears appear normal, no oral mucosal ulcers Cardiovascular: tachycardia, No systolic murmur, No irregularly irregular, No edema Respiratory: no respiratory distress, no rales or rhonchi, clear to auscultation Gastrointestinal: normoactive bowel sounds, no palpable masses, tenderness ( Mild midepigastric area), No distension Skin: warm, normal color, no rashes or abrasions, no fluctuance, no induration, No mottled Neurologic: AAOx3, sensation intact bilaterally, No weakness Psychiatric: interacting appropriately, not anxious, not encephalopathic, thought process linear Assessment & Plan Assessment: 81-year-old male presents with acute abdominal pain, suspected acute small bowel obstruction Plan: 1. Suspected small bowel obstruction. Acute, new problem this provider, further workup indicated. Evidenced by abdominal discomfort, symptoms, tenderness, character similar to prior, previously located in the mid jejunum on abdominal CT as noted in outside records from Dr. Landaverde, 05/09/2016 discharge summary -get abdominal x-ray -discussed with Dr. Maurice and Zohreh Vang, consult appreciated, they will discuss indications for surgery -remain NPO with ice chips only, IV fluids -IV antiemetics and pain medications 2. Metastatic melanoma. Chronic, PET scan in 04/26/2016 demonstrating progression, patient had been scheduled for a 2nd opinion tomorrow at [facility] -appreciate inpatient oncology consultation 3. Chronic kidney disease stage 3. Baseline creatinine is 1.3-1.5, currently baseline, a continuing IV fluids 4. Coronary artery disease. Continue home medications once reconciled 5. Suspected severe protein calorie malnutrition. Evidenced by proximal muscle wasting and cachexia, low BMI of 18.5 -get dietary consult -continue NPO, when able to tolerate oral intake will recommend oral liquid dietary supplements Diet. NPO with IV fluids Prophylaxis. High risk patient, heparin subcu Code. Do not resuscitate per patient, daughter Mallorie is MPOA Disposition. Anticipated discharge is uncertain this time, anticipated length stay is greater than 48 hours warranting inpatient admission status for medical necessity regarding acute small bowel obstruction with high risk comorbid conditions and high complexity.
[2016-06-13] MEDS: ONDANSETRON 4 MG/2 ML VIAL IVP PRN (18:20)
[2016-06-13] MEDS: METOCLOPRAMIDE 10 MG/2 ML VIAL IVP PRN (18:23)
--- NOTE | 2016-06-13 21:29 | GCON ---
[f rep st] CONSULTATION REASON FOR CONSULT: Likely small-bowel obstruction. HISTORY OF PRESENT ILLNESS: The patient is an 81-year-old male with stage IV metastatic melanoma well-known to our service after being cared for in late April and early May of this year for a small bowel obstruction. At that time, imaging studies suggested continued partial small bowel obstruction, but he was clinically doing well and able to eat without pain, nausea or vomiting. He was having formed bowel movements at the time. He decided to forgo surgery in hopes to continue melanoma treatment. He was admitted today with worsening symptoms. He reports a cycle of eating, then experiencing severe abdominal pain , followed by vomiting which relieves the pain. This is happening about twice a day. He is having some small, soft formed stools while on Colace. He was able to tolerate some high-calorie smoothies over the last few weeks but not in the last 2 days. No imaging has been done as of yet. Of note, the patient was on immunotherapy for his melanoma with what was described as mixed results. His last treatments ended in March 2016. PAST MEDICAL HISTORY: Includes metastatic melanoma as described above. Recent small-bowel obstruction, as described above. 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 PAST SURGICAL HISTORY: Remote appendectomy, prostate brachytherapy implants. MEDICATIONS: At home include levothyroxine, multivitamins and Colace. ALLERGIES: No known drug allergies. SOCIAL HISTORY: The patient presents with his daughter who is medical power of register repairer and very helpful and involved in his care. FAMILY HISTORY: Not obtained. REVIEW OF SYSTEMS: Please see HPI. PHYSICAL EXAMINATION: VITAL SIGNS: Temperature 36.8, oxygenation 91% on room air, heart rate 100, respiratory rate 18, blood pressure 158/91. GENERAL: Reveals a thin, pleasant, cooperative, alert, oriented 81-year-old male, in no acute distress. HEENT: Normocephalic, atraumatic. Mucous membranes moist. Pupils equal and round. CHEST: Clear to auscultation bilaterally anteriorly. CARDIAC: Regular rate and rhythm. ABDOMEN: Currently soft. Maybe with some minor bloating. Hyperactive bowel sounds. Mild tenderness right lower quadrant. No rebound or guarding. No peritoneal signs. EXTREMITIES: Warm and dry. SPECIAL TESTS: Reviewed. Of interest, CT scan on April 30, 2016 at previous admission showed partial small bowel obstruction of the jejunum with a probable soft tissue metastasis in the posterior right abdominal wall. Please see report for details. Also of interest is a small-bowel follow-through x-ray on May 02, 2016 showing a partial small bowel obstruction involving the distal jejunum. Currently awaiting abdominal x-ray films for this visit. IMPRESSION: The patient is an 81-year-old male with metastatic melanoma, currently not on treatment but wanting to return to treatment, who appears to be suffering a partial small bowel obstruction potentially related to metastatic disease. PLAN: The patient is currently admitted to the hospitalist service. He is n.p.o. He is being supported with IV fluids, antiemetics and pain medicines as needed. I recommended a nasogastric tube. Per the nurse on the floor, this was attempted but ultimately refused this. I asked that it be re-attempted if he does have nausea and vomiting this evening. I have also discussed the case with Dr. Luong, who will see the patient in the morning. Brooks wants to pursue surgery, which at this point I think is a good idea. We discussed that it will delay his melanoma treatment but he says he cannot go on living this way. We will likely start with the laparoscope, but we discussed the possibility that this will turn into a laparotomy. While he does have a history of appendectomy and this could be related to adhesions, it is also possible that it is related to his melanoma. An enteroenterostomy bypass may be necessary, but we will not know until time of surgery. If surgery is scheduled after Dr. Luong sees the patient, it will likely happen on . /[id number]/MODL MTDD
--- NOTE | 2016-06-13 21:34 | GCON ---
[f rep st] /[id number]/MODL MTDD
[2016-06-13] MEDS: HEPARIN 5,000 UNIT/0.5 ML SYR SC SCH (21:42)
[2016-06-13] MEDS: NS 1,000 ML IV SCH (23:48)
[2016-06-14] MEDS: HEPARIN 5,000 UNIT/0.5 ML SYR SC SCH ×3 (05:30→21:25)
[2016-06-14] MEDS: LEVOTHYROXINE 25 MCG TAB PO SCH (05:30)
[2016-06-14 06:15] LABS: % IMMATURE GRANULYOCYTES 0.3 % (0.0-1.1); ABSOLUTE IMMATURE GRANULOCYTES 0.02 10^3/uL (0.00-0.10); ADD DIFF? NO; ADD MORPH? NO; ADD SCAN? NO; ATYPICAL LYMPHOCYTE FLAG 0 (0-99); FRAGMENT RBC FLAG 0 (0-99); HEMATOCRIT 39.7 % (40.0-51.0); HEMOGLOBIN 12.4 g/dL (13.7-17.5); LEFT SHIFT FLG 50 (0-99); LIPEMIA HEMOLYSIS FLAG 80 (0-99); MEAN CELL HEMOGLOBIN 28.1 pg (27.9-34.1); MEAN CELL HEMOGLOBIN CONCENTR. 31.2 g/dL (32.4-36.7); MEAN CELL VOLUME 89.8 fL (81.5-99.8); MEAN PLATELET VOLUME 9.2 fL (8.7-11.7); PLATELET CLUMPS FLAG 0 (0-99); PLATELET COUNT 183 10^3/uL (150-400); RED BLOOD CELL COUNT 4.42 10^6/uL (4.40-6.38); RED CELL DISTRIBUTION WIDTH 14.8 % (11.5-15.2)
[2016-06-14 06:42] LABS: ALANINE AMINOTRANSFERASE 31 IU/L (21-72); ALBUMIN 3.1 g/dL (3.5-5.0); ALKALINE PHOSPHATASE 73 IU/L (38-126); ANION GAP 10 mEq/L (8-16); ASPARTATE AMINOTRANSFERASE 17 IU/L (17-59); BILIRUBIN,TOTAL 0.8 mg/dL (0.1-1.4); CALCIUM 9.7 mg/dL (8.5-10.4); CARBON DIOXIDE 25 mEq/l (22-31); CHLORIDE 109 mEq/L (97-110); CREATININE 1.2 mg/dL (0.7-1.3); GLOMERULAR FILTRATION RATE 58; GLUCOSE 96 mg/dL (70-100); POTASSIUM 4.7 mEq/L (3.5-5.2); SODIUM 144 mEq/L (134-144); TOTAL PROTEIN 5.6 g/dL (6.3-8.2)
[2016-06-14] MEDS: METOCLOPRAMIDE 10 MG/2 ML VIAL IVP PRN ×2 (07:59→13:58)
[2016-06-14] MEDS: ONDANSETRON 4 MG/2 ML VIAL IVP PRN ×3 (08:01→16:02)
[2016-06-14] MEDS: CHOLECALCIFEROL VIT D3 2,000 UNITS TAB/CAP PO SCH (08:16)
[2016-06-14] MEDS: CYANO/VITAMIN B12 100 MCG TAB PO SCH (08:16)
--- NOTE | 2016-06-14 10:01 | SOAPPROG ---
SOAP Progress Note Assessment/Plan: Assessment/Plan - 81yo M, metastatic melanoma with intermittent SBO. - I do agree that he is likely intermittently obstructing and would benefit from exploration. His exam is currently reassuring as he is having no pain. - Plan will be to decompress today with OR planning for tomorrow. Discussed surgery, alternatives and risks with the patient today, he is amenable to OR and wanting to proceed 06/14/16 09:59 Subjective: Denies pain, denies nausea. No bowel function Objective: Vital Signs Temp Pulse Resp BP Pulse Ox 36.9 C 112 H 18 117/77 91 L 06/14/16 07:42 06/14/16 07:42 06/14/16 07:42 06/14/16 07:42 06/14/16 07:42 Laboratory Results 06/14/16 05:30 06/14/16 05:30 06/13/16 06/14/16 06/15/16 05:59 05:59 05:59 Intake Total 250 1706 Output Total 250 Balance 0 1706 ICD10 Worksheet Patient Problems: Problems Problem Status Onset Abdominal pain Acute Dehydration Acute Nausea and vomiting Acute Palliative care encounter Acute Partial obstruction of small intestine Acute
--- NOTE | 2016-06-14 10:19 | GCON ---
[f rep st] CONSULTATION NEW PATIENT CONSULTATION REASON FOR CONSULTATION: History of metastatic melanoma. HISTORY OF PRESENT ILLNESS: The patient is an 81-year-old man well known to Dr. Amaya who is lanny bhatti treated for stage IV melanoma. Most recently, nivolumab and ipilimumab last given in March of 2016. He was last admitted a couple of months ago with hypercalcemia malignancy and small bowel obs truction that were managed conservatively. He continues to have trouble eating, nausea, vomiting an d constipation. Yesterday he was seen in the clinic and was having increased vomiting and difficult y eating. He was given fluids but vomited 200 mL of food and patient was miserable so he was admitt ed. Since being admitted he has refused an NG tube, is n.p.o. and on IV fluids. The abdominal x-ray don e yesterday in the ED shows mechanical small bowel obstruction again. He has been seen by surgery lyle martini favors at least laparoscopy to evaluate for mechanical obstruction. His calcium corrected is 10 and has been on Zometa as an outpatient. He is due next on the . Today he is up walking around. He denies any current pain, just feels weak due to malnutrition. La bs today show a CBC with a hemoglobin of 12.4, hematocrit 39.7, white blood cells 7.4, and platelet count of 183,000. Sodium 144, potassium 4.7, total bilirubin 0.8, calcium 9.7 with albumin of 3.1, c orrected his calcium is 10. LFTs are unremarkable. Total protein is 5.6. PAST MEDICAL HISTORY: Hypercalcemia malignancies, stage IV melanoma, initially T4a N0 M0, or stage IIB. Also has a history of prior prostate cancer, hypothyroidism due to current immunotherapy and h istory of bone metastasis. FAMILY HISTORY: Noncontributory. SOCIAL HISTORY: No tobacco, alcohol, or drugs currently. CURRENT MEDICATIONS: Have been reviewed in EMR. REVIEW OF SYSTEMS: As per HPI. Otherwise negative. PHYSICAL EXAMINATION: VITAL SIGNS: Today shows a blood pressure 117/77, heart rate 112, respirator y rate 18, O2 saturation 91% on room air. Temperature is 36.9. GENERAL: A fatigued appearing elde rly man not in acute distress, up walking around. HEART: Regular rate and rhythm. LUNGS: Clear. ABDOMEN: Bowel sounds are present but hypoactive. LOWER EXTREMITIES: Show no edema. NEUROLOGIC: Nonfocal. LABORATORY DATA: Labs as mentioned above. ASSESSMENT AND PLAN: An 81-year-old gentleman with metastatic melanoma, most recently on ipilimumab and nivolumab last in March 2016 who presents with a small bowel obstruction and dehydration. 1. Small bowel obstruction and dehydration. Appreciate surgery's recommendations. Try to conservat ively manage but due to recurrent admissions likely will need to evaluate surgically. His electroly ollie seem within normal limits and hypercalcemia of malignancy is currently resolved. We will plan o n continuing Zometa and can give him a dose as an inpatient. We will follow along with surgery and their recommendations at this time. He does understand this could delay melanoma treatment although more immunotherapy is next line of therapy that has been recommended. Symptomatically, his nausea is controlled. However, the patient is n.p.o. 2. Stage IV melanoma, pending an evaluation at [facility]. This was scheduled for today which he obviously will have to cancel. He certainly still has a performance score that makes him amenable to more therapy. He denies any new pain today. PET scan 04/26/2016 does confirm progressi on. 3. Dehydration. IV fluids. 4. Chronic kidney disease stage 3. Baseline creatinine today. 5. Coronary artery disease. Continue home medications. 6. Severe protein calorie malnutrition. Many dietary supplements. The patient is n.p.o. now with I V fluids. CODE STATUS: Patient is DNR. /[id number]/MODL
[2016-06-14] MEDS: NS 1,000 ML IV SCH ×2 (13:27→21:22)
--- NOTE | 2016-06-14 17:17 | HOSPPROG ---
Hospitalist Progress Note Assessment/Plan: 81-year-old male admitted with findings small-bowel obstruction. Patient is new to me today. -small-bowel obstruction:. Patient has a history of prior small bowel obstruction and it is cleared medically. He has some nausea and has vomited once or twice since admission though he refuses an NG tube. Surgery has been consulted and they are planning on surgery on 06/15. Patient is agreeable. Is presumed that his small-bowel obstructions or secondary to metastatic disease due to his melanoma. He appears to have no other risk factors for SBO. -melanoma stage IV, cutaneous. This has been under treatment through Dr. Amaya with 2 oral agents. He is currently undergoing care. -severe protein caloric malnutrition. Patient is not be eating well for the last several days and and is currently NPO due to the SBO. Postoperatively he will likely be NPO also. Thus I am going to order TPN for the gentleman to begin tomorrow. -chronic kidney disease stage 3, stable. Baseline creatinine is approximately 1 -1.2. Creatinine is currently 1.0 -CAD: Stable no complaints of chest pain or shortness of breath. -prostatic CA status post seeding -chronic problems of hypertension hyperlipidemia Plan: Operative care of his SBO tomorrow. Begin TPN tomorrow. Patient is currently medically cleared for operative care. He is physically active without episodes of chest pain and has no history of coronary artery disease nor does he have any history of chronic lung disease. Subjective: Reports he had 1 episode of vomiting but no feelings of nausea. He has some abdominal pain but it is not severe at this time. He is requesting surgical care and relief of his SBO. He refuses an NG tube. Objective: Vital Signs Temp Pulse Resp BP Pulse Ox 36.8 C 102 H 18 156/100 H 92 06/14/16 16:06 06/14/16 16:06 06/14/16 16:06 06/14/16 16:06 06/14/16 16:06 Laboratory Results 06/14/16 05:30 06/14/16 05:30 06/13/16 06/14/16 06/15/16 05:59 05:59 05:59 Intake Total 250 1706 Output Total 250 150 Balance 0 1556 - Time Spent With Patient Time Spent with Patient: greater than 35 minutes Time Spent with Patient: Greater than 35 minutes spent on this patients care, greater than 50% of time spent counseling, educating, and coordinating care regarding the above mentioned plan. - Pending Discharge Pending Discharge Within 24 Hours: No Pending Discharge Within 48 Hours: No - Physical Exam Constitutional: chronically ill appearing, other (Very thin.) Eyes: PERRL Ears, Nose, Mouth, Throat: moist mucous membranes Cardiovascular: regular rate and rhythym, no murmur, rub, or gallop Respiratory: no respiratory distress, no rales or rhonchi, clear to auscultation Gastrointestinal: other (Hypoactive to absent bowel sounds. No significant degree of distention is noted but he has tenderness overall without a palpable or pulsatile mass.) Skin: warm Musculoskeletal: generalized weakness Neurologic: AAOx3, CN II-XII Intact Psychiatric: interacting appropriately ICD10 Worksheet Patient Problems: Problems Problem Status Onset Abdominal pain Acute Dehydration Acute Nausea and vomiting Acute Palliative care encounter Acute Partial obstruction of small intestine Acute
[2016-06-15] MEDS ORDERED: ERTAPENEM 1 GM in NS 100 ML IV ONE (00:01)
[2016-06-15] MEDS: NS 1,000 ML IV SCH ×2 (03:24→17:38)
[2016-06-15] MEDS: LEVOTHYROXINE 25 MCG TAB PO SCH (05:54)
[2016-06-15 05:56] LABS: % IMMATURE GRANULYOCYTES 0.7 % (0.0-1.1); ABSOLUTE IMMATURE GRANULOCYTES 0.04 10^3/uL (0.00-0.10); ADD DIFF? NO; ADD MORPH? NO; ADD SCAN? NO; ATYPICAL LYMPHOCYTE FLAG 10 (0-99); FRAGMENT RBC FLAG 0 (0-99); HEMATOCRIT 34.5 % (40.0-51.0); HEMOGLOBIN 10.9 g/dL (13.7-17.5); LEFT SHIFT FLG 40 (0-99); LIPEMIA HEMOLYSIS FLAG 80 (0-99); MEAN CELL HEMOGLOBIN 28.5 pg (27.9-34.1); MEAN CELL HEMOGLOBIN CONCENTR. 31.6 g/dL (32.4-36.7); MEAN CELL VOLUME 90.3 fL (81.5-99.8); MEAN PLATELET VOLUME 8.9 fL (8.7-11.7); PLATELET CLUMPS FLAG 0 (0-99); PLATELET COUNT 167 10^3/uL (150-400); RED BLOOD CELL COUNT 3.82 10^6/uL (4.40-6.38)
[2016-06-15 06:04] LABS: INR 1.17 (0.83-1.16); PROTIME(PATIENT) 14.9 SEC (12.0-15.0)
[2016-06-15 06:13] LABS: ALANINE AMINOTRANSFERASE 29 IU/L (21-72); ALBUMIN 2.4 g/dL (3.5-5.0); ALKALINE PHOSPHATASE 56 IU/L (38-126); ANION GAP 6 mEq/L (8-16); ASPARTATE AMINOTRANSFERASE 13 IU/L (17-59); BILIRUBIN,TOTAL 0.6 mg/dL (0.1-1.4); CALCIUM 8.3 mg/dL (8.5-10.4); CARBON DIOXIDE 24 mEq/l (22-31); CHLORIDE 113 mEq/L (97-110); CREATININE 1.2 mg/dL (0.7-1.3); GLOMERULAR FILTRATION RATE 58; GLUCOSE 74 mg/dL (70-100); MAGNESIUM 1.8 mg/dL (1.6-2.3); POTASSIUM 4.5 mEq/L (3.5-5.2); SODIUM 143 mEq/L (134-144); TOTAL PROTEIN 4.4 g/dL (6.3-8.2)
[2016-06-15] MEDS: CHOLECALCIFEROL VIT D3 2,000 UNITS TAB/CAP PO SCH (08:02)
[2016-06-15] MEDS: CYANO/VITAMIN B12 100 MCG TAB PO SCH (08:02)
[2016-06-15] MEDS ORDERED: D10W 1,000 ML IV PRN (09:44)
[2016-06-15 10:40] LABS: % IMMATURE GRANULYOCYTES 0.8 % (0.0-1.1); ABSOLUTE IMMATURE GRANULOCYTES 0.04 10^3/uL (0.00-0.10); ADD DIFF? NO; ADD MORPH? NO; ADD SCAN? NO; ATYPICAL LYMPHOCYTE FLAG 10 (0-99); FRAGMENT RBC FLAG 0 (0-99); HEMATOCRIT 35.2 % (40.0-51.0); HEMOGLOBIN 11.2 g/dL (13.7-17.5); LEFT SHIFT FLG 30 (0-99); LIPEMIA HEMOLYSIS FLAG 80 (0-99); MEAN CELL HEMOGLOBIN 28.2 pg (27.9-34.1); MEAN CELL HEMOGLOBIN CONCENTR. 31.8 g/dL (32.4-36.7); MEAN CELL VOLUME 88.7 fL (81.5-99.8); MEAN PLATELET VOLUME 8.5 fL (8.7-11.7); PLATELET CLUMPS FLAG 0 (0-99); PLATELET COUNT 173 10^3/uL (150-400); RED BLOOD CELL COUNT 3.97 10^6/uL (4.40-6.38); RED CELL DISTRIBUTION WIDTH 15.1 % (11.5-15.2)
[2016-06-15 10:44] LABS: INR 1.16 (0.83-1.16); PROTIME(PATIENT) 14.8 SEC (12.0-15.0)
[2016-06-15 10:46] LABS: APTT 28.8 SEC (23.0-38.0)
[2016-06-15 10:51] LABS: ALANINE AMINOTRANSFERASE 30 IU/L (21-72); ALBUMIN 2.5 g/dL (3.5-5.0); ALKALINE PHOSPHATASE 57 IU/L (38-126); ANION GAP 4 mEq/L (8-16); ASPARTATE AMINOTRANSFERASE 13 IU/L (17-59); BILIRUBIN,TOTAL 0.6 mg/dL (0.1-1.4); CALCIUM 8.3 mg/dL (8.5-10.4); CARBON DIOXIDE 22 mEq/l (22-31); CHLORIDE 114 mEq/L (97-110); CREATININE 1.2 mg/dL (0.7-1.3); GLOMERULAR FILTRATION RATE 58; GLUCOSE 76 mg/dL (70-100); MAGNESIUM 1.7 mg/dL (1.6-2.3); POTASSIUM 4.3 mEq/L (3.5-5.2); SODIUM 140 mEq/L (134-144); TOTAL PROTEIN 4.8 g/dL (6.3-8.2); TRIGLYCERIDE 101 mg/dL (40-150)
[2016-06-15] MEDS ORDERED: BUPIVACAINE 0.5% 30 ML SDV ONE (11:14)
[2016-06-15] MEDS ORDERED: BACITRACIN 50,000 UNITS/10 ML SYR IRR ONE (11:14)
[2016-06-15] MEDS ORDERED: POLYMYXIN B SULFATE 500,000 UNIT/10 ML SYR IRR ONE (11:14)
--- NOTE | 2016-06-15 11:52 | SOAPPROG ---
SOAP Progress Note Assessment/Plan: Assessment/Plan: 81 yo man w Stage IV melanoma who p/w SBO 1. SBO - due to readmissions and chronic pain, exploring in OR today Possible adhesions vs mets vs other No hyperCa at this time appreciate surg recs 2. Stage IV melanoma - pending eval at the [facility]; more immunotherapy likely recommended Recent PET w progression 3. Dehydration/protein malnutrition, - IVF, TPN 4. CKD - monitor Cr 06/15/16 11:50 Subjective: Pt in OR Objective: Vital Signs Temp Pulse Resp BP Pulse Ox 36.6 C 102 H 16 145/97 H 90 L 06/15/16 09:02 06/15/16 09:02 06/15/16 09:02 06/15/16 09:02 06/15/16 09:02 Laboratory Results 06/15/16 10:30 06/15/16 10:30 06/14/16 06/15/16 06/16/16 05:59 05:59 05:59 Intake Total 250 3084 Output Total 250 600 Balance 0 2484 PT 14.8 SEC (12.0-15.0) 06/15/16 10:30 INR 1.16 (0.83-1.16) 06/15/16 10:30 Pt not examined today In OR ICD10 Worksheet Patient Problems: Problems Problem Status Onset Abdominal pain Acute Dehydration Acute Nausea and vomiting Acute Palliative care encounter Acute Partial obstruction of small intestine Acute
[2016-06-15] MEDS ORDERED: MIDAZOLAM 2 MG/2 ML VIAL ONE (12:10)
[2016-06-15] MEDS ORDERED: DEXAMETHASONE 4 MG/ML VIAL ONE (12:15)
[2016-06-15] MEDS ORDERED: fentaNYL 250 MCG/5 ML INJ ONE (12:15)
[2016-06-15] MEDS ORDERED: epHEDrine SULFATE 10 MG/ML SYR ONE (12:15)
[2016-06-15] MEDS ORDERED: PROPOFOL/EMULSION 500 MG/50 ML BOTTLE IV ONE (12:15)
[2016-06-15] MEDS ORDERED: PHENYLEPHRINE HCL 100 MCG/ML SYR ONE (12:15)
[2016-06-15] MEDS ORDERED: ROCURONIUM 100 MG/10 ML VIAL ONE (12:15)
[2016-06-15] MEDS ORDERED: ONDANSETRON 4 MG/2 ML VIAL ONE (12:15)
[2016-06-15] MEDS ORDERED: KETOROLAC 30 MG/1 ML SDV ONE (12:15)
[2016-06-15] MEDS ORDERED: morphINE PF 5 MG/10 ML INJ ONE (12:16)
[2016-06-15] MEDS ORDERED: MIDAZOLAM 2 MG/2 ML VIAL IVP ONE (12:30)
[2016-06-15] MEDS ORDERED: ALBUMIN 5% 250 ML BOTTLE IV ONE (12:50)
[2016-06-15] MEDS ORDERED: SUGAMMADEX SODIUM 200 MG/2 ML VIAL IVP ONE (13:33)
--- NOTE | 2016-06-15 13:46 | POSTOPPROG ---
Post Op Note Date of Operation: 06/15/16 Surgeon: Logan Luong Missile Mechanic: Lavon Del Rosario Anesthesiologist: Dr Cardoza Anesthesia: GET(General Endotracheal) Pre-op Diagnosis: obstruction Post-op Diagnosis: obstruction secondary to small bowel mass Indication: obstruction Procedure: small bowel resection Findings: at least 3 intrabdominal masses, one causing obstruction, intuscception Inf/Abcess present in the surg proc area at time of surgery?: No Depth: Organ Space EBL: 50-100 Specimen(s): small bowel
[2016-06-15] MEDS ORDERED: LABETALOL HCL 5 MG/ML 20 ML MDV ONE (14:38)
[2016-06-15] MEDS ORDERED: LABETALOL HCL 5 MG/ML 20 ML MDV IVP PRN (14:44)
[2016-06-15] MEDS ORDERED: ALTEPLASE 2 MG VIAL IVP PRN (15:08)
--- NOTE | 2016-06-15 15:43 | HOSPPROG ---
Hospitalist Progress Note Assessment/Plan: Assessment: 81-year-old male presents with acute abdominal pain 2/2 acute small bowel obstruction 2/2 metastatic melanoma Plan: 1. Small bowel obstruction. Acute, evidenced on x-ray and noted during surgery , 2/2 metastatic masses and intussuseption - POD#[address] Luong today - get PICC line for TPN - cont NGT given absent bowel sounds - cont IV PRN pain Rx/anti-emetics 2. Metastatic melanoma. Chronic, PET scan in 04/26/2016 demonstrating progression, patient had been scheduled for a 2nd opinion tomorrow at [facility] - appreciate inpatient oncology consultation 3. Chronic kidney disease stage 3. Baseline creatinine is 1.3-1.5, currently baseline, a continuing IV fluids - repeat BMP in AM 4. Coronary artery disease. Continue home medications - get post-op EKG to r/o ricky-op ischemia 5. Severe protein calorie malnutrition. Evidenced by proximal muscle wasting and cachexia, low BMI of 18.5, AND/ASPEN criteria - appreciate dietary consult - place on TPN tonight Diet. NPO, NGT Prophylaxis. High risk patient, pharm on hold post-op, on SCDs Code. Do not resuscitate per patient, daughter Mallorie is MPOA Disposition. Anticipated discharge is uncertain this time, pending clinical improvement of above Subjective: Patient without pain postoperatively Objective: Vital Signs Temp Pulse Resp BP Pulse Ox 36.5 C 91 18 180/102 H 97 06/15/16 15:30 06/15/16 15:30 06/15/16 15:30 06/15/16 15:30 06/15/16 15:30 Laboratory Results 06/15/16 10:30 06/15/16 10:30 06/14/16 06/15/16 06/16/16 05:59 05:59 05:59 Intake Total 250 3084 1600 Output Total 250 600 105 Balance 0 2484 1495 PT 14.8 SEC (12.0-15.0) 06/15/16 10:30 INR 1.16 (0.83-1.16) 06/15/16 10:30 - Physical Exam Constitutional: no apparent distress, not in pain, chronically ill appearing, cachectic, No uncomfortable Cardiovascular: irregularly irregular, No systolic murmur, No tachycardia, No edema Respiratory: no respiratory distress, no rales or rhonchi, clear to auscultation Gastrointestinal: other (Incision site centrally), No normoactive bowel sounds ( Absent bowel sounds), No tenderness, No guarding, No distension Skin: no rashes or abrasions, no fluctuance, no induration Psychiatric: not anxious, not encephalopathic, thought process linear, flat affect ICD10 Worksheet Patient Problems: Problems Problem Status Onset Abdominal pain Acute Dehydration Acute Nausea and vomiting Acute Palliative care encounter Acute Partial obstruction of small intestine Acute
--- NOTE | 2016-06-15 16:14 | CPEKG ---
Heart Rate: 94 RR Interval: 638 P-R Interval: 172 QRSD Interval: 86 QT Interval: 372 QTC Interval: 466 P [place]: 75 QRS [place]: 74 T Wave [place]: 56 EKG Severity - ABNORMAL ECG - EKG Impression: SINUS TACHYCARDIA EKG Impression: VENTRICULAR BIGEMINY EKG Impression: ATRIAL FIBRILLATION CONVERSION TO NORMAL SINUS RHYTHM EKG Impression: LOW VOLTAGE IN FRONTAL LEADS Electronically Signed By: Jamin Crouch 16-Jun-2016 08:58:22
[2016-06-15] MEDS: TPN W/ FAMOTIDINE 1 EA BAG IV SCH (23:59)
[2016-06-16] MEDS: NS 1,000 ML IV SCH (02:35)
[2016-06-16] MEDS: LEVOTHYROXINE 25 MCG TAB PO SCH (05:44)
[2016-06-16 06:14] LABS: ABSOLUTE IMMATURE GRANULOCYTES 0.09 10^3/uL (0.00-0.10); ADD DIFF? NO; ADD MORPH? NO; ADD SCAN? NO; ATYPICAL LYMPHOCYTE FLAG 10 (0-99); FRAGMENT RBC FLAG 0 (0-99); HEMATOCRIT 37.5 % (40.0-51.0); HEMOGLOBIN 11.9 g/dL (13.7-17.5); LEFT SHIFT FLG 10 (0-99); LIPEMIA HEMOLYSIS FLAG 80 (0-99); MEAN CELL HEMOGLOBIN 28.8 pg (27.9-34.1); MEAN CELL HEMOGLOBIN CONCENTR. 31.7 g/dL (32.4-36.7); MEAN CELL VOLUME 90.8 fL (81.5-99.8); MEAN PLATELET VOLUME 8.8 fL (8.7-11.7); PLATELET CLUMPS FLAG 0 (0-99); PLATELET COUNT 181 10^3/uL (150-400); RED BLOOD CELL COUNT 4.13 10^6/uL (4.40-6.38); RED CELL DISTRIBUTION WIDTH 14.8 % (11.5-15.2)
[2016-06-16 06:27] LABS: INR 1.14 (0.83-1.16); PROTIME(PATIENT) 14.5 SEC (12.0-15.0)
[2016-06-16 06:28] LABS: APTT 27.6 SEC (23.0-38.0)
[2016-06-16 06:30] LABS: ALANINE AMINOTRANSFERASE 31 IU/L (21-72); ALBUMIN 2.4 g/dL (3.5-5.0); ALKALINE PHOSPHATASE 52 IU/L (38-126); ANION GAP 8 mEq/L (8-16); ASPARTATE AMINOTRANSFERASE 11 IU/L (17-59); BILIRUBIN,TOTAL 0.5 mg/dL (0.1-1.4); CALCIUM 7.9 mg/dL (8.5-10.4); CARBON DIOXIDE 21 mEq/l (22-31); CHLORIDE 113 mEq/L (97-110); CREATININE 1.1 mg/dL (0.7-1.3); GLOMERULAR FILTRATION RATE > 60; GLUCOSE 72 mg/dL (70-100); MAGNESIUM 1.7 mg/dL (1.6-2.3); POTASSIUM 4.8 mEq/L (3.5-5.2); SODIUM 142 mEq/L (134-144); TOTAL PROTEIN 4.5 g/dL (6.3-8.2)
[2016-06-16 06:41] LABS: TROPONIN I 0.018 ng/mL (0-0.034)
[2016-06-16] MEDS: CYANO/VITAMIN B12 100 MCG TAB PO SCH (09:38)
[2016-06-16] MEDS: CHOLECALCIFEROL VIT D3 2,000 UNITS TAB/CAP PO SCH (09:38)
--- NOTE | 2016-06-16 11:16 | GOP ---
[f rep st] OPERATIVE REPORT DATE OF OPERATION: 06/15/2016 SURGEON: Logan Luong MD DEICER REPAIRER: Lavon Del Rosario PA-C ANESTHESIA: General endotracheal with spinal, per Regan Painter MD PREOPERATIVE DIAGNOSIS: 1. Small-bowel obstruction. 2. Underlying metastatic melanoma. POSTOPERATIVE DIAGNOSIS: 1. Small-bowel obstruction. 2. Underlying metastatic melanoma. PROCEDURE PERFORMED: Exploratory laparotomy with small-bowel resection and a [id number] functiona l end-to-end anastomosis of the small bowel. FINDINGS: The patient had a significant burden of what appeared to be metastatic disease throughout his abdomen. He had palpable lesions on his liver, visible lesions within his omentum, and multipl e other visible lesions in the mesentery of his small bowel throughout, which were not resected as t hey were not causing any acute obstruction. The specimen resected had 3 fairly large segments of tu mor in it, one causing intussusception causing his secondary small-bowel obstruction. The two other s likely causing imminent obstruction, as well. SPECIMENS: 45 cm of small bowel containing intussuscepted cancer-containing segment. ESTIMATED BLOOD LOSS: 10 cc. DESCRIPTION OF PROCEDURE: The patient was greeted in the preoperative suite. Once again, risks, be nefits, and alternatives were discussed. The consent was signed. He was then brought back to the o perative suite and placed on the OR table in a supine position. After receiving spinal anesthetic, a general anesthetic was then induced without incident. The patient's abdomen was then widely prepp ed and draped in typical sterile fashion. I commenced the procedure by making a midline incision ap proximately 7 cm in total length extending above and below the umbilicus and carried it down through the subcutaneous tissue. The fascia was identified and grasped with Kathie retractors, and the abd omen was successfully entered sharply. Once in the abdomen, he did not have much adhesive disease. I was able to successfully place a wound protector. After this was done, I eviscerated the small b owel out and immediately identified the site of intussusception which appeared to be consistent with previous imaging in the distal jejunum. I then ran the bowel from the ligament of Treitz all the w ay down to the terminal ilium. I found 3 other large tumors adjacent to the obstructing site which were proximal to it. I elected to remove these and only these 3 tumors. Using multiple fires of th e blue load LACEY 75 stapler, I resected the bowel both proximally and distally. I then put the bowel back together using a common fire, creating a functional end-to-end anastomosis with the same stapl er and closed the common enterotomy in the same way. I then over-sewed the staple line with multipl e interrupted 3-0 Vicryl stitches. The mesenteric defect was closed with a running 3-0 Vicryl. The re were multiple other small (what appeared to be metastatic) lesions, throughout the patient's mese ntery mostly distal to this; most of them about the size of a marble to a dime. These did not appea r to be acutely obstructing, and given the tumor burden throughout the patient's abdomen, I elected to not resect these as it would have meant resecting almost, if not all of his small bowel. After t his was done, I checked patency of my anastomosis which was excellent. Hemostasis was gained. The abdomen was then irrigated with warm normal saline, approximately 1 L, noting clear effluent in the suction canister. After this, I turned my attention toward closing. The midline fascia was closed with a running #1 PDS suture noting excellent fascial reapproximation. Subcutaneous tissue was then irrigated with warm normal saline, and the skin was closed with remy. Sterile dressing was then placed, and the patient was then extubated in the operative suite and taken to the PACU in satisfac tory condition. DRAINS: None. COUNTS: All counts were reported as correct x2. /[id number]/MODL
--- NOTE | 2016-06-16 11:23 | SOAPPROG ---
SOAP Progress Note Assessment/Plan: Assessment: 1.) SBO, S/P Explor. Lap with Metastatic Melanoma scattered throughout peritoneum reported. 2.) Malignant Melanoma, with recent Tx with Nivolumab + Ipilumumab, last course 03/17. Plan: 1.) Operative findings noted. Surgical management appreciated. 2.) To advance diet as feasible. 3.) When patient recovers and is discharged, to consider rescheduling of second opinion consult at [facility]. 4.) Our service will recheck intermittently. 06/16/16 11:19 Subjective: Feeling okay this AM, with good sx. control, post op. Objective: Pt in NAD,with daughter at bedside. HEENT- NGT in place, anicteric, no oral thrush Neck- supple Chest- clear ant. CVS- RSR, no extra HS ABD- soft, NT, no rebound, BS absent. EXT-trace pretibial edema. Skin intact. Labs as noted here: Vital Signs Temp Pulse Resp BP Pulse Ox 36.6 C 87 18 139/71 H 97 06/16/16 07:54 06/16/16 07:54 06/16/16 07:54 06/16/16 07:54 06/16/16 07:54 Laboratory Results 06/16/16 05:26 06/16/16 05:26 06/15/16 06/16/16 06/17/16 05:59 05:59 05:59 Intake Total 3084 3500 Output Total 600 1755 Balance 2484 1745 PT 14.5 SEC (12.0-15.0) 06/16/16 05:26 INR 1.14 (0.83-1.16) 06/16/16 05:26 ICD10 Worksheet Patient Problems: Problems Problem Status Onset Abdominal pain Acute Dehydration Acute Nausea and vomiting Acute Palliative care encounter Acute Partial obstruction of small intestine Acute
--- NOTE | 2016-06-16 16:06 | HOSPPROG ---
Hospitalist Progress Note Assessment/Plan: Assessment: 81-year-old male presents with acute abdominal pain 2/2 acute small bowel obstruction 2/2 metastatic melanoma Plan: 1. Small bowel obstruction. Acute, evidenced on x-ray and noted during surgery , 2/2 metastatic masses and intussuseption - POD#[address] Luong today - received PICC line for TPN - cont NGT given absent bowel sounds - cont IV PRN pain Rx/anti-emetics - will d/w Dr. Luong re: when to trial PO - DC [place] 2. Metastatic melanoma. Chronic, PET scan in 04/26/2016 demonstrating progression, patient had been scheduled for a 2nd opinion tomorrow at [facility] - appreciate inpatient oncology consultation 3. Chronic kidney disease stage 3. Baseline creatinine is 1.3-1.5, currently baseline, a continuing IV fluids 4. Coronary artery disease. Continue home medications, EKG w/o ischemic changes , PVCs (personally interpreted), trop nl 5. Severe protein calorie malnutrition. Evidenced by proximal muscle wasting and cachexia, low BMI of 18.5, AND/ASPEN criteria - appreciate dietary consult - place on TPN tonight Diet. NPO, NGT Prophylaxis. High risk patient, pharm on hold post-op, on SCDs Code. Do not resuscitate per patient, daughter Mallorie is MPOA Disposition. Anticipated discharge is uncertain this time, pending clinical improvement of above Subjective: Patient reports no significant abdominal pain Objective: Vital Signs Temp Pulse Resp BP Pulse Ox 36.6 C 82 18 142/93 H 96 06/16/16 11:46 06/16/16 11:46 06/16/16 11:46 06/16/16 11:46 06/16/16 11:46 Laboratory Results 06/16/16 05:26 06/16/16 05:26 06/15/16 06/16/16 06/17/16 05:59 05:59 05:59 Intake Total 3084 3500 Output Total 600 1755 Balance 2484 1745 PT 14.5 SEC (12.0-15.0) 06/16/16 05:26 INR 1.14 (0.83-1.16) 06/16/16 05:26 - Physical Exam Constitutional: no apparent distress, not in pain, chronically ill appearing, No uncomfortable Cardiovascular: irregularly irregular, No systolic murmur, No tachycardia, No edema Respiratory: no respiratory distress, no rales or rhonchi, clear to auscultation Gastrointestinal: tenderness (Minimal at surgical site), No normoactive bowel sounds (Absent bowel sounds), No guarding, No distension Neurologic: AAOx3, sensation intact bilaterally, No weakness (Motor 5/5 bilateral lower extremity) Psychiatric: interacting appropriately, not anxious, not encephalopathic, flat affect ICD10 Worksheet Patient Problems: Problems Problem Status Onset Dehydration Acute Nausea and vomiting Acute Abdominal pain Acute Partial obstruction of small intestine Acute Palliative care encounter Acute
--- NOTE | 2016-06-16 17:01 | SOAPPROG ---
SOAP Progress Note Assessment/Plan: Assessment/Plan - 81y M POD#1 s/p ex-lap, SBR for obstructing metastatic lesions - No issues overnight, spinal ansethetic is wearing off but his pain does appear well controlled with IV narcotics. - Abdomen is soft and aTTP, dressing to be removed POD#2 - NGT with some output, slowing. Will plan to leave in until tomorrow as he has no bowel sounds currently. - Await bowel function, feed slowly over the weekend. Await path 06/14/16 09:59 06/16/16 16:59 Subjective: feels ok, pain appears well controlled. Objective: Vital Signs Temp Pulse Resp BP Pulse Ox 36.6 C 80 18 133/72 H 97 06/16/16 16:00 06/16/16 16:00 06/16/16 16:00 06/16/16 16:00 06/16/16 16:00 Laboratory Results 06/16/16 05:26 06/16/16 05:26 06/15/16 06/16/16 06/17/16 05:59 05:59 05:59 Intake Total 3084 3500 Output Total 600 1755 Balance 2484 1745 PT 14.5 SEC (12.0-15.0) 06/16/16 05:26 INR 1.14 (0.83-1.16) 06/16/16 05:26 ICD10 Worksheet Patient Problems: Problems Problem Status Onset Abdominal pain Acute Dehydration Acute Nausea and vomiting Acute Palliative care encounter Acute Partial obstruction of small intestine Acute
[2016-06-16] MEDS: TPN W/ FAMOTIDINE 1 EA BAG IV SCH (21:47)
[2016-06-17] MEDS: LEVOTHYROXINE 25 MCG TAB PO SCH (04:52)
[2016-06-17] MEDS: HEPARIN 5,000 UNIT/0.5 ML SYR SC SCH ×3 (04:52→20:49)
[2016-06-17 05:14] LABS: % IMMATURE GRANULYOCYTES 1.2 % (0.0-1.1); ABSOLUTE IMMATURE GRANULOCYTES 0.13 10^3/uL (0.00-0.10); ADD DIFF? NO; ADD MORPH? NO; ADD SCAN? NO; ATYPICAL LYMPHOCYTE FLAG 0 (0-99); FRAGMENT RBC FLAG 0 (0-99); HEMATOCRIT 40.8 % (40.0-51.0); HEMOGLOBIN 13.1 g/dL (13.7-17.5); LEFT SHIFT FLG 10 (0-99); LIPEMIA HEMOLYSIS FLAG 80 (0-99); MEAN CELL HEMOGLOBIN CONCENTR. 32.1 g/dL (32.4-36.7); MEAN CELL VOLUME 90.5 fL (81.5-99.8); MEAN PLATELET VOLUME 9.1 fL (8.7-11.7); PLATELET CLUMPS FLAG 0 (0-99); PLATELET COUNT 220 10^3/uL (150-400); RED BLOOD CELL COUNT 4.51 10^6/uL (4.40-6.38); RED CELL DISTRIBUTION WIDTH 15.1 % (11.5-15.2)
[2016-06-17 05:21] LABS: INR 1.03 (0.83-1.16); PROTIME(PATIENT) 13.4 SEC (12.0-15.0)
[2016-06-17 05:22] LABS: APTT 27.4 SEC (23.0-38.0)
[2016-06-17 05:33] LABS: ALANINE AMINOTRANSFERASE 26 IU/L (21-72); ALBUMIN 2.5 g/dL (3.5-5.0); ALKALINE PHOSPHATASE 59 IU/L (38-126); ANION GAP 8 mEq/L (8-16); ASPARTATE AMINOTRANSFERASE 19 IU/L (17-59); BILIRUBIN,TOTAL 0.5 mg/dL (0.1-1.4); CALCIUM 7.9 mg/dL (8.5-10.4); CARBON DIOXIDE 23 mEq/l (22-31); CHLORIDE 113 mEq/L (97-110); CREATININE 0.9 mg/dL (0.7-1.3); GLOMERULAR FILTRATION RATE > 60; GLUCOSE 138 mg/dL (70-100); POTASSIUM 4.1 mEq/L (3.5-5.2); SODIUM 144 mEq/L (134-144); TOTAL PROTEIN 4.8 g/dL (6.3-8.2)
[2016-06-17] MEDS: CHOLECALCIFEROL VIT D3 2,000 UNITS TAB/CAP PO SCH (07:37)
[2016-06-17] MEDS: CYANO/VITAMIN B12 100 MCG TAB PO SCH (07:38)
[2016-06-17] MEDS: hydrALAZINE 20 MG/ML VIAL IVP PRN (08:04)
[2016-06-17] MEDS ORDERED: K PHOS 10 MMOL in D5W 250 ML IV ONE (08:30)
--- NOTE | 2016-06-17 09:49 | CPEKG ---
Heart Rate: 97 RR Interval: 619 P-R Interval: 164 QRSD Interval: 80 QT Interval: 344 QTC Interval: 437 P Inkom: 87 QRS Inkom: 56 T Wave Inkom: 39 EKG Severity - ABNORMAL ECG - EKG Impression: SINUS TACHYCARDIA EKG Impression: VENTRICULAR TRIGEMINY EKG Impression: LOW VOLTAGE IN FRONTAL LEADS EKG Impression: CONSIDER ANTEROSEPTAL INFARCT Electronically Signed By: Jamin Crouch 18-Jun-2016 18:24:43
--- NOTE | 2016-06-17 12:48 | HOSPPROG ---
Hospitalist Progress Note Assessment/Plan: Assessment: 81-year-old male presents with acute abdominal pain 2/2 acute small bowel obstruction 2/2 metastatic melanoma Plan: 1. Small bowel obstruction. Acute, evidenced on x-ray and noted during surgery , 2/2 metastatic masses and intussuseption - POD#[address] Luong - receiving TPN - d/w Dr. Bowers, will clamp NGT and possibly remove later today - cont IV PRN pain Rx/anti-emetics - cont sips 2. Metastatic melanoma. Chronic, PET scan in 04/26/2016 demonstrating progression, patient had been scheduled for a 2nd opinion tomorrow at [facility] - appreciate inpatient oncology consultation 3. Chronic kidney disease stage 3. Baseline creatinine is 1.3-1.5, currently baseline, a continuing volume w/ TPN 4. Coronary artery disease. Continue home medications, trop nl 5. Severe protein calorie malnutrition. Evidenced by proximal muscle wasting and cachexia, low BMI of 18.5, AND/ASPEN criteria - appreciate dietary consult - placed on TPN 6. PACs/PVCs. Present on EKG (personally interpreted) w/o overt tachycardia - d/w RN, if tachycardia present on VS checks, get EKG and will consider transfer to tele unit given that these may predispose him to Afib and he currently does not have an identifiable hx thereof 7. Atelectasis. Based on physical exam, likely contributing to hypoxia without supplemental oxygen -initiate incentive spirometer, counseled patient Diet. Sips, TPN Prophylaxis. High risk patient, lovenox Code. Do not resuscitate per patient, daughter Mallorie is MPOA Disposition. Anticipated discharge is uncertain this time, pending clinical improvement of above Subjective: Patient reports abdominal pain with repositioning, he is tolerating sips without any discomfort, he would like something health keep his mouth moist Objective: Vital Signs Temp Pulse Resp BP Pulse Ox 36.6 C 97 16 164/94 H 94 06/17/16 12:00 06/17/16 12:00 06/17/16 12:00 06/17/16 12:00 06/17/16 12:00 Laboratory Results 06/17/16 04:50 06/17/16 04:50 06/16/16 06/17/16 06/18/16 05:59 05:59 05:59 Intake Total 3500 3365 Output Total 1755 1700 435 Balance 1745 1665 -435 PT 13.4 SEC (12.0-15.0) 06/17/16 04:50 INR 1.03 (0.83-1.16) 06/17/16 04:50 - Physical Exam Constitutional: no apparent distress, not in pain, chronically ill appearing, No uncomfortable Ears, Nose, Mouth, Throat: other (Nasogastric tube in place) Cardiovascular: other (Normal rhythm with frequent ectopy), No systolic murmur, No tachycardia, No edema Respiratory: reduced air movement (Bilateral bases), inspiratory crackles ( Bilateral bases), No expiratory wheeze, No bronchial breath sounds Gastrointestinal: tenderness (Mildly), other (Central incision site), No normoactive bowel sounds (Hypoactive bowel sounds but present), No guarding, No distension Neurologic: AAOx3, sensation intact bilaterally, No facial droop Psychiatric: interacting appropriately, not anxious, not encephalopathic, thought process linear ICD10 Worksheet Patient Problems: Problems Problem Status Onset Dehydration Acute Nausea and vomiting Acute Abdominal pain Acute Partial obstruction of small intestine Acute Palliative care encounter Acute
[2016-06-17] MEDS ORDERED: ACETAMINOPHEN 325 MG TAB PO PRN (13:35)
[2016-06-17] MEDS: TPN W/ FAMOTIDINE 1 EA BAG IV SCH (20:49)
--- NOTE | 2016-06-17 22:58 | SOAPPROG ---
SOAP Progress Note Assessment/Plan: Assessment: POD # 2 s/p small bowel resection for metastatic lesions. Path pending NG output has slowed. Discontinued Sips and chips for tonight Will await return of bowel function before advancing diet S: Pain controlled O: Sitting in chair, appears comfortable CTAB RRR BS hypoactive Dressing dry and intact Plan: 06/17/16 22:57 Objective: Vital Signs Temp Pulse Resp BP Pulse Ox 36.6 C 85 16 166/94 H 94 06/17/16 20:00 06/17/16 20:00 06/17/16 20:00 06/17/16 20:00 06/17/16 20:00 Laboratory Results 06/17/16 04:50 06/17/16 04:50 06/16/16 06/17/16 06/18/16 05:59 05:59 05:59 Intake Total 3500 3365 1995 Output Total 1755 1700 710 Balance 1745 1665 1285 PT 13.4 SEC (12.0-15.0) 06/17/16 04:50 INR 1.03 (0.83-1.16) 06/17/16 04:50 ICD10 Worksheet Patient Problems: Problems Problem Status Onset Abdominal pain Acute Dehydration Acute Nausea and vomiting Acute Palliative care encounter Acute Partial obstruction of small intestine Acute
[2016-06-18] MEDS: HEPARIN 5,000 UNIT/0.5 ML SYR SC SCH ×3 (05:29→22:18)
[2016-06-18] MEDS: LEVOTHYROXINE 25 MCG TAB PO SCH (05:29)
[2016-06-18 05:49] LABS: % IMMATURE GRANULYOCYTES 1.8 % (0.0-1.1); ABSOLUTE IMMATURE GRANULOCYTES 0.19 10^3/uL (0.00-0.10); ADD DIFF? NO; ADD MORPH? NO; ADD SCAN? NO; ATYPICAL LYMPHOCYTE FLAG 0 (0-99); FRAGMENT RBC FLAG 0 (0-99); HEMATOCRIT 37.9 % (40.0-51.0); HEMOGLOBIN 12.3 g/dL (13.7-17.5); LEFT SHIFT FLG 10 (0-99); LIPEMIA HEMOLYSIS FLAG 80 (0-99); MEAN CELL HEMOGLOBIN 28.9 pg (27.9-34.1); MEAN CELL HEMOGLOBIN CONCENTR. 32.5 g/dL (32.4-36.7); MEAN CELL VOLUME 89.2 fL (81.5-99.8); MEAN PLATELET VOLUME 8.9 fL (8.7-11.7); PLATELET CLUMPS FLAG 0 (0-99); PLATELET COUNT 170 10^3/uL (150-400); RED BLOOD CELL COUNT 4.25 10^6/uL (4.40-6.38); RED CELL DISTRIBUTION WIDTH 14.9 % (11.5-15.2)
[2016-06-18 05:58] LABS: INR 1.01 (0.83-1.16); PROTIME(PATIENT) 13.2 SEC (12.0-15.0)
[2016-06-18 05:59] LABS: APTT 26.3 SEC (23.0-38.0)
[2016-06-18 06:22] LABS: ALANINE AMINOTRANSFERASE 26 IU/L (21-72); ALBUMIN 2.4 g/dL (3.5-5.0); ALKALINE PHOSPHATASE 54 IU/L (38-126); ANION GAP 8 mEq/L (8-16); ASPARTATE AMINOTRANSFERASE 14 IU/L (17-59); BILIRUBIN,TOTAL 0.3 mg/dL (0.1-1.4); CARBON DIOXIDE 21 mEq/l (22-31); CHLORIDE 112 mEq/L (97-110); CREATININE 0.8 mg/dL (0.7-1.3); GLOMERULAR FILTRATION RATE > 60; GLUCOSE 99 mg/dL (70-100); POTASSIUM 3.5 mEq/L (3.5-5.2); SODIUM 141 mEq/L (134-144); TOTAL PROTEIN 4.7 g/dL (6.3-8.2)
--- NOTE | 2016-06-18 09:41 | SOAPPROG ---
SOAP Progress Note Assessment/Plan: Assessment: POD # 3 s/p small bowel resection for metastatic lesions. Path pending Flatus - will advance to clears. Keep TPN for now S: Pain controlled O: Lying in bed, appears comfortable CTAB RRR BS present. Incision cdi. Soft and minimally tender No sacral decubitus ulcer present on exam today. Allevyn replaced Plan: 06/17/16 22:57 06/18/16 09:40 Objective: Vital Signs Temp Pulse Resp BP Pulse Ox 36.7 C 92 18 141/78 H 96 06/18/16 07:27 06/18/16 07:27 06/18/16 07:27 06/18/16 07:27 06/18/16 07:27 Laboratory Results 06/18/16 05:20 06/18/16 05:20 06/17/16 06/18/16 06/19/16 05:59 05:59 05:59 Intake Total 3365 3790 Output Total 1700 1460 Balance 1665 2330 PT 13.2 SEC (12.0-15.0) 06/18/16 05:20 INR 1.01 (0.83-1.16) 06/18/16 05:20 ICD10 Worksheet Patient Problems: Problems Problem Status Onset Abdominal pain Acute Dehydration Acute Nausea and vomiting Acute Palliative care encounter Acute Partial obstruction of small intestine Acute
[2016-06-18] MEDS ORDERED: K PHOS 10 MMOL in D5W 250 ML IV ONE (10:00)
[2016-06-18] MEDS: CYANO/VITAMIN B12 100 MCG TAB PO SCH (10:16)
[2016-06-18] MEDS: CHOLECALCIFEROL VIT D3 2,000 UNITS TAB/CAP PO SCH (10:17)
[2016-06-18] MEDS: hydrALAZINE 20 MG/ML VIAL IVP PRN ×2 (14:18→16:41)
--- NOTE | 2016-06-18 20:16 | HOSPPROG ---
Hospitalist Progress Note Assessment/Plan: Assessment: 81-year-old male presents with acute abdominal pain 2/2 acute small bowel obstruction 2/2 metastatic melanoma Plan: 1. Small bowel obstruction. Acute, evidenced on x-ray and noted during surgery , 2/2 metastatic masses and intussuseption - POD#[address] Luong - receiving TPN - tolerating clears diet, encourage ambulation - cont IV PRN pain Rx/anti-emetics 2. Metastatic melanoma. Chronic, PET scan in 04/26/2016 demonstrating progression, patient had been scheduled for a 2nd opinion tomorrow at [facility] - appreciate inpatient oncology consultation 3. Chronic kidney disease stage 3. Baseline creatinine is 1.3-1.5, currently baseline, a continuing volume w/ TPN 4. Coronary artery disease. Continue home medications, trop nl 5. Severe protein calorie malnutrition. Evidenced by proximal muscle wasting and cachexia, low BMI of 18.5, AND/ASPEN criteria - appreciate dietary consult - placed on TPN 6. PACs/PVCs. Present on EKG, intermittent VS w/ HR 140s - d/w patient extensively today re: potential benefit of transferring to a tele monitored unit to monitor for PAF - patient would like to focus care on his SBO/melanoma recovery at this time and hold on further cardiac evaluations - as an outpatient, he will re-evaluate this w/ Dr. Tavares and possibly get an outpt Holter Monitor once he has solidified his plans from an oncologic perspective 7. Atelectasis. Based on physical exam, likely contributing to hypoxia without supplemental oxygen -initiated incentive spirometer Diet. Sips, TPN Prophylaxis. High risk patient, lovenox Code. Do not resuscitate per patient, daughter Mallorie is MPOA Disposition. Anticipated discharge is uncertain this time, pending clinical improvement of above Subjective: patient comfortable at rest Objective: Vital Signs Temp Pulse Resp BP Pulse Ox 36.4 C 108 H 20 139/77 H 95 06/18/16 16:00 06/18/16 16:00 06/18/16 16:00 06/18/16 17:29 06/18/16 16:00 Laboratory Results 06/18/16 05:20 06/18/16 05:20 06/17/16 06/18/16 06/19/16 05:59 05:59 05:59 Intake Total 3365 3790 2033 Output Total 1700 1460 1400 Balance 1665 2330 633 PT 13.2 SEC (12.0-15.0) 06/18/16 05:20 INR 1.01 (0.83-1.16) 06/18/16 05:20 - Time Spent With Patient Time Spent with Patient: greater than 35 minutes Time Spent with Patient: Greater than 35 minutes spent on this patients care, greater than 50% of time spent counseling, educating, and coordinating care regarding the above mentioned plan. - Physical Exam Constitutional: no apparent distress, not in pain, chronically ill appearing, cachectic, other Cardiovascular: other (intermittent ectopic beats), No systolic murmur, No tachycardia Respiratory: no respiratory distress, no rales or rhonchi, clear to auscultation Gastrointestinal: normoactive bowel sounds, tenderness (mild at incision site), No distension Skin: no rashes or abrasions, no fluctuance, no induration, other (central surg incision CDI) Neurologic: AAOx3, sensation intact bilaterally Psychiatric: interacting appropriately, not anxious, not encephalopathic, thought process linear ICD10 Worksheet Patient Problems: Problems Problem Status Onset Dehydration Acute Nausea and vomiting Acute Abdominal pain Acute Partial obstruction of small intestine Acute Palliative care encounter Acute
[2016-06-18] MEDS: TPN W/ FAMOTIDINE 1 EA BAG IV SCH (21:58)
[2016-06-18] MEDS: IBUPROFEN 200 MG TAB PO PRN (22:17)
[2016-06-19] MEDS: HEPARIN 5,000 UNIT/0.5 ML SYR SC SCH ×3 (05:57→21:31)
[2016-06-19] MEDS: LEVOTHYROXINE 25 MCG TAB PO SCH (05:57)
[2016-06-19 06:27] LABS: % IMMATURE GRANULYOCYTES 2.9 % (0.0-1.1); ABSOLUTE IMMATURE GRANULOCYTES 0.23 10^3/uL (0.00-0.10); ADD DIFF? NO; ADD MORPH? NO; ADD SCAN? NO; ATYPICAL LYMPHOCYTE FLAG 0 (0-99); FRAGMENT RBC FLAG 0 (0-99); HEMATOCRIT 33.9 % (40.0-51.0); HEMOGLOBIN 11.2 g/dL (13.7-17.5); LEFT SHIFT FLG 20 (0-99); LIPEMIA HEMOLYSIS FLAG 80 (0-99); MEAN CELL HEMOGLOBIN 28.9 pg (27.9-34.1); MEAN CELL VOLUME 87.6 fL (81.5-99.8); MEAN PLATELET VOLUME 8.9 fL (8.7-11.7); PLATELET CLUMPS FLAG 0 (0-99); PLATELET COUNT 145 10^3/uL (150-400); RED BLOOD CELL COUNT 3.87 10^6/uL (4.40-6.38)
[2016-06-19 06:45] LABS: ALANINE AMINOTRANSFERASE 27 IU/L (21-72); ALBUMIN 2.1 g/dL (3.5-5.0); ALKALINE PHOSPHATASE 46 IU/L (38-126); ANION GAP 5 mEq/L (8-16); ASPARTATE AMINOTRANSFERASE 15 IU/L (17-59); BILIRUBIN,TOTAL 0.4 mg/dL (0.1-1.4); CALCIUM 8.1 mg/dL (8.5-10.4); CARBON DIOXIDE 24 mEq/l (22-31); CHLORIDE 111 mEq/L (97-110); CREATININE 0.8 mg/dL (0.7-1.3); GLOMERULAR FILTRATION RATE > 60; GLUCOSE 95 mg/dL (70-100); MAGNESIUM 2.1 mg/dL (1.6-2.3); POTASSIUM 3.6 mEq/L (3.5-5.2); SODIUM 140 mEq/L (134-144); TOTAL PROTEIN 4.1 g/dL (6.3-8.2); TRIGLYCERIDE 146 mg/dL (40-150)
[2016-06-19 06:49] LABS: INR 1.01 (0.83-1.16); PROTIME(PATIENT) 13.2 SEC (12.0-15.0)
[2016-06-19] MEDS: CHOLECALCIFEROL VIT D3 2,000 UNITS TAB/CAP PO SCH (09:02)
[2016-06-19] MEDS: CYANO/VITAMIN B12 100 MCG TAB PO SCH (09:02)
--- NOTE | 2016-06-19 09:53 | SOAPPROG ---
SOAP Progress Note Assessment/Plan: Assessment/Plan: 81 Y M SBO, metastatic melanoma, s/p laparotomy c SBR, significant metastatic disease burn seen intraop. Seen and examined c Dr. Luong this morning. Tolerating clears. Abdomen is soft. Wounds are intact. Advance to regular diet today. Dispo: wants to go home. Has supportive and daughter. Is open to home nursing and or PT/OT. S: Not much pain. Passing gas. Tolerating clears. O: alert, nad ctab anteriorly rrr abd +BS, soft, inc cdi c remy, no erythema 06/19/16 09:51 Objective: Vital Signs Temp Pulse Resp BP Pulse Ox 36.7 C 86 18 144/91 H 96 06/19/16 07:42 06/19/16 07:42 06/19/16 07:42 06/19/16 07:42 06/19/16 07:42 Laboratory Results 06/19/16 06:15 06/19/16 06:15 06/18/16 06/19/16 06/20/16 05:59 05:59 05:59 Intake Total 3790 2333 Output Total 1460 2150 Balance 2330 183 PT 13.2 SEC (12.0-15.0) 06/19/16 06:15 INR 1.01 (0.83-1.16) 06/19/16 06:15 ICD10 Worksheet Patient Problems: Problems Problem Status Onset Abdominal pain Acute Dehydration Acute Nausea and vomiting Acute Palliative care encounter Acute Partial obstruction of small intestine Acute
--- NOTE | 2016-06-19 16:11 | HOSPPROG ---
Hospitalist Progress Note Assessment/Plan: INTERVAL SUMMARY & DAILY PROGRESS NOTE DATE OF ADMISSION:06/13/2016 INTERVAL DIAGNOSES 1. Acute small bowel obstruction 2. Chronic metastatic melanoma 3. Chronic kidney disease stage 3 4. Chronic coronary artery disease 5. Severe protein calorie malnutrition 6. Atelectasis 7. Frequent PACs and PVCs CONSULTATIONS General surgery, Hematology Oncology PROCEDURES / IMAGING 06/15/2016 small-bowel resection and lysis of adhesions by Dr. Luong CHIEF COMPLAINT acute abdominal pain SUBJECTIVE patient reports that his abdominal pain is well controlled when he does not move, he has a poor appetite HOSPITAL COURSE BY PROBLEM the patient presented with acute abdominal pain and vomiting in the setting of acute small bowel obstruction secondary to recurrent metastatic melanoma intra- abdominally. He was initially tried on conservative therapy with nasogastric tube placement and he did not experience resolution. Consequently, he was taken to the operating room by Dr. Luong who performed lysis of adhesions and small-bowel resection given that there were 3 areas of tumor visibly causing obstruction. The patient tolerated the surgery well and he has had his nasogastric tube removed and diet advanced. the patient is currently working on advancing his diet, which has been complicated by poor appetite. His plan is to physically get stronger, improve his nutrition, get a 2nd opinion for treatment of his metastatic melanoma at [facility] in the near future. Assessment: 81-year-old male presents with acute abdominal pain 2/2 acute small bowel obstruction 2/2 metastatic melanoma Plan: 1. Small bowel obstruction. Acute, evidenced on x-ray and noted during surgery , 2/2 metastatic masses and intussuseption - POD#[address] Luong - receiving TPN and dietary consult - advancing diet to regular today, low fiber - cont IV PRN pain Rx/anti-emetics - passing flatus, no bowel movement as yet 2. Metastatic melanoma. Chronic, PET scan in 04/26/2016 demonstrating progression, patient will receive a 2nd opinion at [facility] after discharge - patient is very adamant that he would like ongoing oncology care, including radiation therapy if necessary 3. Chronic kidney disease stage 3. Baseline creatinine is 1.3-1.5, currently baseline, continuing volume w/ TPN 4. Coronary artery disease. Continue home medications, trop nl 5. Severe protein calorie malnutrition. Evidenced by proximal muscle wasting and cachexia, low BMI of 18.5, AND/ASPEN criteria - placed on TPN - patient has poor taste sensation status post radiation therapy and this has resulted in conversion of many solid foods - I counseled the patient that maintaining his nutritional status with supplemental, high caloric shakes and smoothies will be in his best interest the patient will continue to consume a highly nutritional liquid diet - the goal is to achieve enough daily calorie so he is able to be weaned off the TPN prior to discharge her dietary pharmacy consultant will continue to attempt a calorie count to allow us to monitor his progress 6. PACs/PVCs. Present on EKG, intermittent VS w/ HR 140s - patient would like to focus care on his SBO/melanoma recovery at this time and hold on further cardiac evaluations - as an outpatient, he will re-evaluate this w/ Dr. Tavares and possibly get an outpt Holter Monitor once he has solidified his plans from an oncologic perspective - the patient does not want to be transferred to a tele monitored unit at this time 7. Atelectasis. Based on physical exam, likely contributing to hypoxia without supplemental oxygen - initiated incentive spirometer Diet. Regular as kathia, TPN Prophylaxis. High risk patient, lovenox Code. Do not resuscitate per patient, daughter Mallorie is MPOA Disposition. Anticipated discharge is uncertain this time, pending clinical improvement of above Subjective: we discussed his dietary needs extensively, has not had a bowel movement, passing flatus Objective: Vital Signs Temp Pulse Resp BP Pulse Ox 36.3 C 103 H 18 144/91 H 94 06/19/16 12:00 06/19/16 12:00 06/19/16 12:00 06/19/16 12:00 06/19/16 12:00 Laboratory Results 06/19/16 06:15 06/19/16 06:15 06/18/16 06/19/16 06/20/16 05:59 05:59 05:59 Intake Total 3790 2333 Output Total 1460 2150 200 Balance 2330 183 -200 PT 13.2 SEC (12.0-15.0) 06/19/16 06:15 INR 1.01 (0.83-1.16) 06/19/16 06:15 - Time Spent With Patient Time Spent with Patient: greater than 35 minutes Time Spent with Patient: Greater than 35 minutes spent on this patients care, greater than 50% of time spent counseling, educating, and coordinating care regarding the above mentioned plan. - Physical Exam Constitutional: not in pain, chronically ill appearing, cachectic Cardiovascular: edema ( trace bilateral lower extremity), other ( frequent ectopy) Respiratory: reduced air movement ( bilateral bases), No expiratory wheeze, No bronchial breath sounds Gastrointestinal: tenderness ( mild, around surgical incision site), No normoactive bowel sounds ( hypoactive bowel sounds) Skin: other ( no erythema or induration around the surgical site) Neurologic: AAOx3 Psychiatric: interacting appropriately, not anxious, not encephalopathic, thought process linear ICD10 Worksheet Patient Problems: Problems Problem Status Onset Dehydration Acute Nausea and vomiting Acute Abdominal pain Acute Partial obstruction of small intestine Acute Palliative care encounter Acute
[2016-06-19] MEDS: TPN W/ FAMOTIDINE 1 EA BAG IV SCH (21:29)
[2016-06-19] MEDS: IBUPROFEN 200 MG TAB PO PRN (21:30)
[2016-06-19] MEDS: DOCUSATE SODIUM 100 MG CAP PO PRN (21:30)
[2016-06-20] MEDS: hydrALAZINE 20 MG/ML VIAL IVP PRN (05:41)
[2016-06-20] MEDS: LEVOTHYROXINE 25 MCG TAB PO SCH (05:41)
[2016-06-20] MEDS: HEPARIN 5,000 UNIT/0.5 ML SYR SC SCH ×3 (05:41→22:06)
[2016-06-20 05:53] LABS: ADD DIFF? YES; ADD MORPH? NO; ADD SCAN? NO; ATYPICAL LYMPHOCYTE FLAG 0 (0-99); FRAGMENT RBC FLAG 0 (0-99); HEMATOCRIT 32.5 % (40.0-51.0); HEMOGLOBIN 10.6 g/dL (13.7-17.5); LEFT SHIFT FLG 30 (0-99); LIPEMIA HEMOLYSIS FLAG 80 (0-99); MEAN CELL HEMOGLOBIN 28.6 pg (27.9-34.1); MEAN CELL HEMOGLOBIN CONCENTR. 32.6 g/dL (32.4-36.7); MEAN CELL VOLUME 87.6 fL (81.5-99.8); PLATELET CLUMPS FLAG 0 (0-99); PLATELET COUNT 136 10^3/uL (150-400); RED BLOOD CELL COUNT 3.71 10^6/uL (4.40-6.38); RED CELL DISTRIBUTION WIDTH 14.9 % (11.5-15.2)
[2016-06-20 06:07] LABS: ANION GAP 6 mEq/L (8-16); CALCIUM 8.4 mg/dL (8.5-10.4); CARBON DIOXIDE 23 mEq/l (22-31); CHLORIDE 108 mEq/L (97-110); CREATININE 0.9 mg/dL (0.7-1.3); GLOMERULAR FILTRATION RATE > 60; GLUCOSE 96 mg/dL (70-100); POTASSIUM 3.5 mEq/L (3.5-5.2); SODIUM 137 mEq/L (134-144)
[2016-06-20 07:18] LABS: PLATELET ESTIMATE DECREASED (ADEQ)
[2016-06-20 07:20] LABS: HYPOCHROMIA 1+; MICROCYTES 1+; POLYCHROMASIA 1+
[2016-06-20] MEDS: CHOLECALCIFEROL VIT D3 2,000 UNITS TAB/CAP PO SCH (09:04)
[2016-06-20] MEDS: CYANO/VITAMIN B12 100 MCG TAB PO SCH (09:04)
[2016-06-20] MEDS ORDERED: MAGNESIUM HYDROXIDE 30 ML UDCUP PO PRN (11:03)
[2016-06-20] MEDS ORDERED: BISACODYL 10 MG SUPP PR PRN (11:03)
[2016-06-20] MEDS ORDERED: POLYETHYLENE GLYCOL 3350 17 GM PKT PO PRN (11:03)
--- NOTE | 2016-06-20 11:07 | SOAPPROG ---
SOAP Progress Note Assessment/Plan: Assessment/Plan: 81 Y M SBO, metastatic melanoma, s/p laparotomy c SBR, significant metastatic disease burn seen intraop. Tolerating regular diet although doesn't seem to be eating much. Consider weaning from TPN--this may boost appetite. Wounds are intact. Pain is controlled. Added selected bowel protocol (in addition to current colace). Dispo: Likely soon if off TPN and eating. Has supportive and daughter. Is open to home nursing and or PT/OT. S: Not much pain. Passing gas. Tolerating clears. O: alert, nad ctab anteriorly rrr abd +BS, soft, inc cdi c remy, no erythema 06/20/16 11:04 Objective: Vital Signs Temp Pulse Resp BP Pulse Ox 36.6 C 103 H 18 124/84 H 92 06/20/16 07:58 06/20/16 07:58 06/20/16 07:58 06/20/16 07:58 06/20/16 07:58 Laboratory Results 06/20/16 05:40 06/20/16 05:40 06/19/16 06/20/16 06/21/16 05:59 05:59 05:59 Intake Total 2333 1526 Output Total 2150 1450 500 Balance 183 76 -500 PT 13.2 SEC (12.0-15.0) 06/19/16 06:15 INR 1.01 (0.83-1.16) 06/19/16 06:15 ICD10 Worksheet Patient Problems: Problems Problem Status Onset Abdominal pain Acute Dehydration Acute Nausea and vomiting Acute Palliative care encounter Acute Partial obstruction of small intestine Acute
[2016-06-20] MEDS: DOCUSATE SODIUM 100 MG CAP PO PRN (12:55)
[2016-06-20] MEDS ORDERED: POTASSIUM CL 20 MEQ TAB PO ONE (13:00)
--- NOTE | 2016-06-20 14:27 | HOSPPROG ---
Hospitalist Progress Note Assessment/Plan: 81-year-old male presents with acute abdominal pain 2/2 acute small bowel obstruction 2/2 metastatic melanoma Plan: 1. Small bowel obstruction. Acute, evidenced on x-ray and noted during surgery , 2/2 metastatic masses and intussuseption - POD#[address] Luong. Progressing as anticipated post operatively - receiving TPN and dietary consult. Attempting to wean off TPN - Now on a Regular Diet - cont IV PRN pain Rx/anti-emetics 2. Metastatic melanoma. Chronic, PET scan in 04/26/2016 demonstrating progression, patient will receive a 2nd opinion at [facility] after discharge - patient is very adamant that he would like ongoing oncology care, including radiation therapy if necessary 3. Chronic kidney disease stage 3. Baseline creatinine is 1.3-1.5, currently at baseline/ 4. Coronary artery disease. Continue home medications, trop nl 5. Severe protein calorie malnutrition. Evidenced by proximal muscle wasting and cachexia, low BMI of 18.5, AND/ASPEN criteria - placed on TPN, Nutrition is following - patient has poor taste sensation status post radiation therapy and this has resulted in conversion of many solid foods - the goal is to achieve enough daily calorie so he is able to be weaned off the TPN prior to discharge 6. PACs/PVCs. Present on EKG, intermittent VS w/ HR 140s - patient would like to focus care on his SBO/melanoma recovery at this time and hold on further cardiac evaluations - as an outpatient, he will re-evaluate this w/ Dr. Tavares and possibly get an outpt Holter Monitor once he has solidified his plans from an oncologic perspective - the patient does not want to be transferred to a tele monitored unit at this time 7. Atelectasis. Based on physical exam, likely contributing to hypoxia without supplemental oxygen - initiated incentive spirometer Diet. Regular as kathia, TPN (attempting to wean) Prophylaxis. High risk patient, lovenox Code. Do not resuscitate per patient, daughter Mallorie is MPOA Disposition. Anticipated discharge pending clinical improvement and weaning off TPN. Subjective: no abd pain. no complaints. Denies n/v. Tolerating some regular diet. Still no TPN Objective: Vital Signs Temp Pulse Resp BP Pulse Ox 36.8 C 91 18 146/83 H 96 06/20/16 11:43 06/20/16 11:43 06/20/16 11:43 06/20/16 11:43 06/20/16 11:43 Laboratory Results 06/20/16 05:40 06/20/16 05:40 06/19/16 06/20/16 06/21/16 05:59 05:59 05:59 Intake Total 2333 1526 Output Total 2150 1450 500 Balance 183 76 -500 PT 13.2 SEC (12.0-15.0) 06/19/16 06:15 INR 1.01 (0.83-1.16) 06/19/16 06:15 - Physical Exam Constitutional: no apparent distress Eyes: PERRL, EOMI Ears, Nose, Mouth, Throat: moist mucous membranes Cardiovascular: regular rate and rhythym Respiratory: no respiratory distress, clear to auscultation Gastrointestinal: soft, non-tender abdomen, No guarding, No rebound, No distension Skin: warm, normal color Neurologic: AAOx3 Psychiatric: interacting appropriately, not encephalopathic ICD10 Worksheet Patient Problems: Problems Problem Status Onset Abdominal pain Acute Dehydration Acute Nausea and vomiting Acute Palliative care encounter Acute Partial obstruction of small intestine Acute
[2016-06-20] MEDS: TPN W/ FAMOTIDINE 1 EA BAG IV SCH (22:00)
[2016-06-21] MEDS: LEVOTHYROXINE 25 MCG TAB PO SCH (05:29)
[2016-06-21] MEDS: HEPARIN 5,000 UNIT/0.5 ML SYR SC SCH (05:30)
[2016-06-21 06:10] LABS: ANION GAP 3 mEq/L (8-16); CALCIUM 8.9 mg/dL (8.5-10.4); CARBON DIOXIDE 26 mEq/l (22-31); CHLORIDE 107 mEq/L (97-110); CREATININE 0.9 mg/dL (0.7-1.3); GLOMERULAR FILTRATION RATE > 60; GLUCOSE 95 mg/dL (70-100); MAGNESIUM 2.1 mg/dL (1.6-2.3); SODIUM 136 mEq/L (134-144)
[2016-06-21] MEDS: CYANO/VITAMIN B12 100 MCG TAB PO SCH (09:58)
[2016-06-21] MEDS: CHOLECALCIFEROL VIT D3 2,000 UNITS TAB/CAP PO SCH (09:59)
--- NOTE | 2016-06-21 10:36 | SOAPPROG ---
SOAP Progress Note Assessment/Plan: Assessment: 81yo male s/p laparotomy, bowel resection for metastatic melanoma still on TPN, tolerating regular diet -- large bowel of chicken soup last night according to patient, had two normal bowel movements, patient really wants to go home. PE awake alert chest CTA B/L Abdomen nondistended, stapled midline incision clean and dry, soft nontender to palpation Plan: ok to d/c from surgical perspective although explained to patient he may need weaning from TPN and dispo per medicine 06/21/16 10:32 Objective: Vital Signs Temp Pulse Resp BP Pulse Ox 36.8 C 91 16 144/100 H 92 06/21/16 09:10 06/21/16 09:10 06/21/16 09:10 06/21/16 09:10 06/21/16 09:10 Laboratory Results 06/20/16 05:40 06/21/16 05:30 06/20/16 06/21/16 06/22/16 05:59 05:59 05:59 Intake Total 1526 981 Output Total 1450 1350 Balance 76 -369 PT 13.2 SEC (12.0-15.0) 06/19/16 06:15 INR 1.01 (0.83-1.16) 06/19/16 06:15 ICD10 Worksheet Patient Problems: Problems Problem Status Onset Abdominal pain Acute Dehydration Acute Nausea and vomiting Acute Palliative care encounter Acute Partial obstruction of small intestine Acute
[2016-06-21 12:05] VITALS: BP 140/79; PULSE 99; RESP 14; TEMP 98.1; O2SAT 93
--- NOTE | 2016-06-21 14:15 | PDIAF ---
- Diagnosis Diagnosis: SBO Code Status: Do Not Resuscitate - Medication Management Discharge Medications: Medications to Continue on Transfer Cholecalciferol Vit D3 [Vitamin D3 2000 units tab (OTC)] 5,000 units PO DAILY [Last Taken 04/27/16] Cyanocobalamin [Vitamin B12 (*)] 100 mcg PO DAILY 04/30/16 [Last Taken 04/28/16] Docusate Sodium [Colace 100 MG (*)] 100 mg PO DAILY PRN 04/30/16 [Last Taken ] Levothyroxine [Synthroid 25 mcg (*)] 25 mcg PO DAILY06 04/30/16 [Last Taken ] Naproxen Sodium [Aleve 220 MG (*)] 220 - 440 mg PO BID PRN 04/30/16 [Last Taken 04/28/16] Discharge Medications: Refer to the Discharge Home Medication list for PRN reason. - Orders Services needed: Certified Title Curative Specialist Diet Recommendation: no restrictions on diet Diet Texture: Regular Texture Diet - Follow Up Care Current Providers and Referrals: Primo Tavares MD [Primary Care Provider] - Logan Luong MD [Medical Doctor] - (f/u in 1-2 weeks)
--- NOTE | 2016-06-21 14:20 | PDDCSUM ---
Discharge Summary Discharge Summary: 81-year-old male admitted for small bowel obstruction 2/2 metastatic melanoma now s/p day 6 laparotomy with bowel resection. 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 Now tolerating a regular diet. TPN will be stopped. Doing well post operatively. Pain is well controlled. Has been cleared for discharge by surgery. Will discharge today. Needs f/u with Surgery, PCP, and Oncology ([facility]). The patient and his daughter will make these appt.s DDX. 1. Small bowel obstruction. Acute, evidenced on x-ray and noted during surgery , 2/2 metastatic masses and intussuseption - POD#[address] Luong. Progressing as anticipated post operatively - stopped TPN - Now on a Regular Diet - has not required pain meds, no prescription provided 2. Metastatic melanoma. Chronic, PET scan in 04/26/2016 demonstrating progression, patient will receive a 2nd opinion at [facility] after discharge - patient is very adamant that he would like ongoing oncology care, including radiation therapy if necessary 3. Chronic kidney disease stage 3. Baseline creatinine is 1.3-1.5, currently at baseline/ 4. Coronary artery disease. 5. Severe protein calorie malnutrition. Evidenced by proximal muscle wasting and cachexia, low BMI of 18.5, AND/ASPEN criteria 6. PACs/PVCs. Present on EKG, intermittent VS w/ HR 140s - patient would like to focus care on his SBO/melanoma recovery at this time and hold on further cardiac evaluations - as an outpatient, he will re-evaluate this w/ Dr. Tavares and possibly get an outpt Holter Monitor once he has solidified his plans from an oncologic perspective 7. Atelectasis. Based on physical exam, likely contributing to hypoxia without supplemental oxygen - initiated incentive spirometer Code. Do not resuscitate per patient, daughter Mallorie is MPOA D/C EXAM NAD AAOX3 PEERL MMM NO JVD RRR CTA B S/NT/ND NO EDEMA D/C MEDS: SEE MED REC TOTAL TIME SPENT ON DISCHARGE IS 38 MINS
== END 2016-06-21 15:45 | disposition home health service (06) | DRG 329 ==
LOC: F1N 16:17 → PREOBSVTOIN 16:22
PROVIDERS: ADMIT Internal Medicine; ATTEND Internal Medicine
PROC: 0DB80ZZ Excision of Small Intestine, Open Approach (ICD-10-PCS; principal; 2016-06-15 11:45)
PROC: 02HV33Z Insertion of Infusion Device into Superior Vena Cava, Percutaneous Approach (ICD-10-PCS; 2016-06-16)
DX: C78.4 Secondary malignant neoplasm of small intestine (principal); E43 Unspecified severe protein-calorie malnutrition; J98.11 Atelectasis; K56.1 Intussusception; N18.3 Chronic kidney disease, stage 3 (moderate); I25.10 Atherosclerotic heart disease of native coronary artery without angina pectoris; I49.1 Atrial premature depolarization; I49.3 Ventricular premature depolarization; I12.9 Hypertensive chronic kidney disease with stage 1 through stage 4 chronic kidney disease, or unspecified chronic kidney disease; E78.5 Hyperlipidemia, unspecified; E03.8 Other specified hypothyroidism; E86.0 Dehydration; Z66 Do not resuscitate; Z85.830 Personal history of malignant neoplasm of bone; Z87.891 Personal history of nicotine dependence; Z85.820 Personal history of malignant melanoma of skin; Z85.46 Personal history of malignant neoplasm of prostate
CPT/HCPCS: 97116-GP; 97161-GP; 97166-GO; 97530-GP; 97535-GO; C1751; G8978-GP-CI; G8979-GP-CI; G8980-GP-CI; G8987-GO-CK; G8988-GO-CI; J0360; J1100; J1335; J1885; J2250; J2274; J2370; J2405; J2704; J2765; J3010; J3490; P9041

== ENCOUNTER 2016-08-25 16:06 | Inpatient (IN) | payer OTHER ==
--- NOTE | 2016-08-25 16:50 | EDPHY ---
H & P Time Seen by Provider: 08/25/16 16:47 HPI/ROS: Chief complaint. Elevated creatinine HPI. Patient is an 81-year-old male presents emergency department with elevated creatinine potassium today. He had a routine appointment with his oncologist and they regularly do blood work. Patient normally has some chronic renal insufficiency with a creatinine about 1.5-1.7. It was 1.7 on August 17. Today he is found have a creatinine of 3.4. His potassium today is 6.0. He also complains of no bowel movement for 5 days. He has been on morphine. No vomiting. No abdominal pain. He is passing gas. In May the patient had small-bowel obstruction with bowel resection. He has history of metastatic melanoma, chronic renal insufficiency and coronary artery disease. The patient denies chest pain, shortness of breath, fever. He has been drinking fluids in urinating a lot. He last had radiation 1 week ago and chemotherapy August 17 Constitutional. Weakness Eyes. no problems with vision ENT. no sore throat, no nasal drainage Cardiovascular. no chest pain Respiratory. no shortness of breath, no cough Abdominal. Decreased bowel movement . no problems urinating MS. no calf pain/swelling, no neck/back pain, no joint pain Skin. no rash Lymph. no swollen glands Neuro. no headache, no dizziness, no difficulty walking or with speech Past Medical/Surgical History: Past medical history melanoma with metastatic disease, hypothyroid, small-bowel obstruction, chronic renal insufficiency, coronary artery disease Social History: Single, nonsmoker, no alcohol Smoking Status: Former smoker Physical Exam: General Appearance: Alert well-developed male mild distress vital signs significant for heart rate 105 and O2 saturation 90% Eyes: Pupils equal and round no pallor or injection. ENT, Mouth: Mucous membranes are moist. Respiratory: There are no retractions, lungs are clear to auscultation. Cardiovascular: Regular rate and rhythm. Gastrointestinal: Abdomen is soft and nontender, no masses, bowel sounds normal. Neurological: Awake and alert, sensory and motor exams grossly normal. Skin: Warm and dry, no rashes. Musculoskeletal: Neck is supple nontender. Extremities symmetrical, full range of motion. Psychiatric: Patient is oriented X 3, there is no agitation. Constitutional: Initial Vital Signs Temperature (C) 36.4 C 08/25/16 16:11 Heart Rate 105 H 08/25/16 16:11 Respiratory Rate 16 08/25/16 16:11 Blood Pressure 121/76 H 08/25/16 16:11 O2 Sat (%) 90 L 08/25/16 16:11 O2 Delivery Mode Nasal Cannula O2 (L/minute) 2 Allergies/Adverse Reactions: No Known Allergies Allergy (Verified 04/30/16 09:16) Home Medications: Medication Instructions Recorded Cholecalciferol Vit D3 [Vitamin D3 5,000 units PO DAILY 08/25/16 (*)] Levothyroxine [Synthroid 25 mcg 25 mcg PO DAILY 08/25/16 (*)] Naproxen Sodium [Aleve 220 MG (*)] 220 mg PO BID 08/25/16 Sennosides/Docusate Sodium 1 each PO HS PRN 08/25/16 [Senna-S Tablet] Medical Decision Making - Diagnostics EKG Interpretation: EKG interpreted by me shows a normal sinus rhythm normal interval and axis. QRS is normal there is slight elevation from V2 maybe V3. No arrhythmia. No peaked T-waves Imaging Results: Chest x-ray shows probably be and increased mass in the left hilum and a new lytic lesion in the left clavicle Abdominal x-ray reviewed with Dr. Callaway is compatible with constipation. No evidence for small bowel obstruction Procedures: IV normal saline, monitor. I-STAT in addition to labs being sent to the lab ED Course/Re-evaluation: Point of care testing shows potassium to be 5.7, creatinine is 3.6. BUN is 83 Re-evaluation 5:45 p.m. patient is stable. The patient, his daughter, and I discussed imaging study results lab results, recommendation for admission. They accept that recommendation. I consulted and discussed the case with Dr. marion, hospitalist, who agrees to the admission Patient is given a L of normal saline and Kayexalate by mouth Differential Diagnosis: Acute on chronic renal failure possibly due to recent chemotherapy and radiation. Patient appears to be somewhat dehydrated. His potassium is less than 6.0 in the emergency department. He is treated with Kayexalate. There was also concern that the patient may have small-bowel obstruction as not had a bowel movement in 5 days. He had a small bowel obstruction requiring surgery in May. X-ray today reveals constipation and no evidence for small bowel obstruction. Plan is admission, hydration, paying close attention to potassium and creatinine. Laxative for constipation - Data Points Laboratory Results: Laboratory Results 08/25/16 17:05 08/25/16 17:05 Medications Given: Discontinued Medications Dextrose (Dextrose 50% Syringe) 25 gm IVP ONCE ONE Stop: 08/26/16 07:58 Last Admin: 08/26/16 09:09 Dose: 25 gm Sodium Chloride (Ns) 1,000 mls @ 0 mls/hr IV ONCE ONE PRN Reason: Wide Open Stop: 08/25/16 18:03 Last Admin: 08/25/16 18:57 Dose: 1,000 mls Sodium Chloride (Ns) 1,000 mls @ 3,000 mls/hr IV ONCE ONE Stop: 08/25/16 19:06 Last Admin: 08/25/16 19:03 Dose: 1,000 mls Calcium Gluconate (Calcium Gluconate 1 Gm (Premix)) 50 mls @ 100 mls/hr IV ONCE ONE Stop: 08/26/16 08:25 Last Admin: 08/26/16 09:31 Dose: 50 mls Insulin Human Regular (Humulin R) 5 unit IVP ONCE ONE Stop: 08/26/16 07:57 Last Admin: 08/26/16 09:08 Dose: 5 units Sodium Bicarbonate (Sodium Bicarbonate) 50 meq IVP ONCE ONE Stop: 08/26/16 07:59 Last Admin: 08/26/16 09:33 Dose: 50 meq Sodium Polystyrene Sulfonate (Kayexalate) 15 gm PO EDNOW ONE Stop: 08/25/16 18:03 Last Admin: 08/25/16 18:57 Dose: 15 gm Sodium Polystyrene Sulfonate (Kayexalate) 30 gm PO ONCE ONE Stop: 08/26/16 07:58 Last Admin: 08/26/16 11:16 Dose: 30 gm Departure - Departure Disposition: [facility] Inpatient Acute Clinical Impression: Acute renal failure Qualifiers: Acute renal failure type: unspecified Qualified Code(s): N17.9 - Acute kidney failure, unspecified Condition: Fair
[2016-08-25 17:16] LABS: % IMMATURE GRANULYOCYTES 1.2 % (0.0-1.1); ABSOLUTE IMMATURE GRANULOCYTES 0.07 10^3/uL (0.00-0.10); ADD DIFF? NO; ADD MORPH? NO; ADD SCAN? NO; ATYPICAL LYMPHOCYTE FLAG 0 (0-99); FRAGMENT RBC FLAG 0 (0-99); HEMATOCRIT 36.7 % (40.0-51.0); LEFT SHIFT FLG 50 (0-99); LIPEMIA HEMOLYSIS FLAG 80 (0-99); MEAN CELL HEMOGLOBIN 27.8 pg (27.9-34.1); MEAN CELL HEMOGLOBIN CONCENTR. 32.7 g/dL (32.4-36.7); MEAN PLATELET VOLUME 8.4 fL (8.7-11.7); PLATELET CLUMPS FLAG 10 (0-99); PLATELET COUNT 91 10^3/uL (150-400); RED BLOOD CELL COUNT 4.32 10^6/uL (4.40-6.38); RED CELL DISTRIBUTION WIDTH 14.6 % (11.5-15.2)
[2016-08-25 17:32] LABS: ANION GAP 13 mEq/L (8-16); CALCIUM 9.1 mg/dL (8.5-10.4); CARBON DIOXIDE 26 mEq/l (22-31); CHLORIDE 97 mEq/L (97-110); CREATININE 3.6 mg/dL (0.7-1.3); GLOMERULAR FILTRATION RATE 16; GLUCOSE 113 mg/dL (70-100); POTASSIUM 6.1 mEq/L (3.5-5.2); SODIUM 136 mEq/L (134-144)
[2016-08-25] MEDS ORDERED: SODIUM POLY SULF 15 GM/60 ML BOTTLE PO ONE (18:02)
[2016-08-25] MEDS ORDERED: NS 1,000 ML IV ONE ×2 (18:02→18:47)
--- NOTE | 2016-08-25 18:30 | CPEKG ---
Heart Rate: 92 RR Interval: 652 P-R Interval: 152 QRSD Interval: 74 QT Interval: 344 QTC Interval: 426 P [place]: 60 QRS [place]: 27 T Wave [place]: 71 EKG Severity - ABNORMAL ECG - EKG Impression: SINUS RHYTHM EKG Impression: LOW VOLTAGE IN FRONTAL LEADS EKG Impression: CONSIDER ANTEROSEPTAL INFARCT Electronically Signed By: Primo Schaefer 25-Aug-2016 20:24:25
[2016-08-25] MEDS ORDERED: ONDANSETRON 4 MG/2 ML VIAL IVP PRN (18:47)
[2016-08-25] MEDS ORDERED: ONDANSETRON DISINTEGRATING 4 MG TAB PO PRN (18:47)
[2016-08-25] MEDS ORDERED: SENNOSIDES/DOCUSATE SODIUM TAB PO PRN (19:57)
--- NOTE | 2016-08-25 21:12 | GHP ---
[f rep st] HISTORY AND PHYSICAL DATE OF ADMISSION: 08/25/2016 CHIEF COMPLAINT: Constipation. HISTORY OF PRESENT ILLNESS: An 81-year-old male with a history of metastatic melanoma to the bone a nd prostate, actively receiving chemotherapy and radiation, who was seen by his oncologist, Dr. Meaghan hernandez, today for screening laboratories and was noted to have acute kidney injury and hyperkalemia. T he patient was transferred to the emergency department for evaluation. The patient has had recent h ospitalization which was prolonged in May of 2016, for which he was treated for small bowel obstru ction. The patient was operatively corrected and continued receiving active treatment in the outpat ient setting. Per their report, he was doing well. Although not taking solid food, was tolerating nutrition in the form of shakes quite well. Does believe that maybe his overall fluid intake was a little bit low. The patient has had some left lower extremity neuropathic pain since his most recen t XRT treatments. The outpatient radiation oncologist did trial a dose of morphine for a couple of days approximately 5 days ago. They used this medication for 2 days and then discontinued it. Othe rwise, he has been taking his normal prescribed medications without complication, maintaining a reas onable level of activity and strength with ADLs. In the emergency department, patient is denying pa lpitations, chest pain, shortness of breath. Does have consistent constipation issues and has been urinating frequently since he began IV hydration. PAST MEDICAL HISTORY: 1. 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 2. Coronary artery disease. 3. Hypertension. 4. Hyperlipidemia. 5. Prolonged hospitalization for small bowel obstruction, surgically corrected. 6. CKD with a baseline creatinine around 1.3-1.4. 7. Hypothyroidism. SOCIAL HISTORY: Negative for tobacco, alcohol or illicit drugs. FAMILY HISTORY: Positive for heart disease. REVIEW OF SYSTEMS: A 10-point Review of Systems is negative with the exception of that reported in the HPI. ADVANCED DIRECTIVES: The patient is do not resuscitate. PHYSICAL EXAMINATION: VITAL SIGNS: Blood pressure 123/71, heart rate 105, respiratory rate 16, 90% on room air, 36.4. GENERAL: This is a cachectic-appearing male, in no acute distress. HEENT: No table for dry mucous membranes. Eyes: Negative for any icterus. CARDIAC: Patient is regular rhyt hm and tachycardic. PULMONARY: Good respiratory effort. Clear to auscultation. GASTROINTESTINAL: Positive bowel sounds. Abdomen is soft and nontender. MUSCULOSKELETAL: Negative for any lower e xtremity edema. SKIN: Negative for any rashes. NEUROLOGIC: Patient is alert and oriented x3. PS YCHIATRIC: He is pleasant and cooperative on interview and examination. DATA: White count 6.0. Creatinine 3.6 up from 1.7 most recently, and 1.2 in July. Potassium is 6 .1. Troponin less than 0.012. EKG, which I personally reviewed and interpreted, shows sinus rhythm , normal axis, normal intervals with no peaked T-waves or acute ST-T changes. Abdominal x-ray, whic h I personally reviewed and interpreted, shows no signs of small bowel obstruction. ASSESSMENT AND PLAN: This is an 81-year-old male with metastatic melanoma actively receiving treatm ent with acute kidney injury. 1. Acute kidney injury. Suspect this is secondary to dehydration; however, the patient would be at risk for metastatic complications and obstruction related to his malignancy. Will order renal ultr asound for visualization of the ureters and the kidneys. Will aggressively fluid resuscitate, holdi ng nephrotoxins such as Aleve, which he has been taking twice a day for discomfort. We will renally dose medications and follow patient's renal function in the morning. 2. Hyperkalemia secondary to acute kidney injury. EKG inconsistent with acute abnormalities. Will admit the patient to cardiac monitoring. Treat with Kayexalate now, hydrate and recheck in the [facility]. 3. Metastatic melanoma. Patient has bony metastases and intraabdominal metastases, not requiring m uch in the way of pain. Will treat with Tylenol rather than Aleve. [facility] They are aware and I am sure we will be consulting in the morning. Unclear to me if his chemo therapy regimen can somehow be provoking an acute kidney injury. [facility] 4. Sinus tachycardia. Suspect this is also volume-related. Will follow his heart rates after flui d resuscitation. 5. Coronary artery disease. Patient does not have chest pain complaints. As above, the EKG is wit hout acute changes and the troponin is negative. Will continue his home medications without change. 6. Hypothyroidism. Will continue his Synthroid replacement without change. 7. Prophylaxis with heparin secondary to his acute kidney injury. 8. Diet regular with a bowel regimen. DISPOSITION: Expecting greater than 2 midnights as the patient is comorbidly quite ill with acute k idney injury, electrolyte abnormalities. Will require hydration, monitoring, and consultation by On cology. I have discussed the case with the emergency room physician. Patient will be triaged to [facility] medical-surgical floor with telemetry for care. /[id number]/MODL
[2016-08-25 22:55] LABS: ANION GAP 9 mEq/L (8-16); CALCIUM 8.4 mg/dL (8.5-10.4); CARBON DIOXIDE 25 mEq/l (22-31); CHLORIDE 103 mEq/L (97-110); CREATININE 3.3 mg/dL (0.7-1.3); GLOMERULAR FILTRATION RATE 18; GLUCOSE 87 mg/dL (70-100); SODIUM 137 mEq/L (134-144)
[2016-08-26] MEDS: HEPARIN 5,000 UNIT/0.5 ML SYR SC SCH ×4 (00:09→21:14)
[2016-08-26] MEDS: NS 1,000 ML IV SCH ×2 (00:09→05:52)
[2016-08-26] MEDS: LEVOTHYROXINE 25 MCG TAB PO SCH (05:51)
[2016-08-26 06:32] LABS: ANION GAP 7 mEq/L (8-16); CALCIUM 7.9 mg/dL (8.5-10.4); CARBON DIOXIDE 24 mEq/l (22-31); CHLORIDE 107 mEq/L (97-110); CREATININE 3.1 mg/dL (0.7-1.3); GLOMERULAR FILTRATION RATE 19; GLUCOSE 75 mg/dL (70-100); POTASSIUM 6.1 mEq/L (3.5-5.2); SODIUM 138 mEq/L (134-144)
[2016-08-26 07:29] LABS: % IMMATURE GRANULYOCYTES 0.9 % (0.0-1.1); ABSOLUTE IMMATURE GRANULOCYTES 0.04 10^3/uL (0.00-0.10); ADD DIFF? NO; ADD MORPH? NO; ADD SCAN? NO; ATYPICAL LYMPHOCYTE FLAG 10 (0-99); FRAGMENT RBC FLAG 20 (0-99); HEMOGLOBIN 10.6 g/dL (13.7-17.5); LEFT SHIFT FLG 40 (0-99); LIPEMIA HEMOLYSIS FLAG 80 (0-99); MEAN CELL HEMOGLOBIN 27.8 pg (27.9-34.1); MEAN CELL HEMOGLOBIN CONCENTR. 32.1 g/dL (32.4-36.7); MEAN CELL VOLUME 86.6 fL (81.5-99.8); MEAN PLATELET VOLUME 8.9 fL (8.7-11.7); PLATELET CLUMPS FLAG 0 (0-99); PLATELET COUNT 107 10^3/uL (150-400); RED BLOOD CELL COUNT 3.81 10^6/uL (4.40-6.38); RED CELL DISTRIBUTION WIDTH 14.8 % (11.5-15.2)
[2016-08-26] MEDS ORDERED: INSULIN REGULAR HUMAN 100 UNIT/ML IVP ONE (07:56)
[2016-08-26] MEDS ORDERED: CALCIUM GLUCONATE 50 ML IV ONE (07:56)
[2016-08-26] MEDS ORDERED: SODIUM POLY SULF 15 GM/60 ML BOTTLE PO ONE (07:57)
[2016-08-26] MEDS ORDERED: D50W 25 GM/50 ML SYR IVP ONE (07:57)
[2016-08-26] MEDS ORDERED: SODIUM BICARBONATE 50 MEQ/50 ML SYR IVP ONE (07:58)
[2016-08-26] MEDS: CHOLECALCIFEROL VIT D3 2,000 UNITS TAB/CAP PO SCH (09:34)
--- NOTE | 2016-08-26 11:43 | HOSPPROG ---
Hospitalist Progress Note Assessment/Plan: Acute kidney injury in the setting of acute urinary retention with obstructive uropathy - suspect secondary to prostate mets. no e/o infection. francisco placed this am by Dr. Lopez, who is consulting. Cr is trending down with IVF's. Will recheck bmp this afternoon. D/C Naproxen, avoid nephrotoxic agents. Renal consulted. Hyperkalemia - K still 6.1 this am, down to just 5.9 at noon after NaHCO3, Insulin/Dextrose, Calc Gluconate, and another dose of kayexalate this am. Giving IV Lasix now. Repeat labs this afternoon. Nephrology is consulted. Case discussed with Dr. Michele. Metastatic melanoma - mets to bone, prostate. receiving chemo and radiation, followed by Dr. Amaya. Enlarging hilar mass on CXR. Oncology notified of admission. Hypoxemia - ?secondary to enlarging hilar mass vs atelectasis. No fevers, no e/ o PNA on CXR. Will give IS, wean O2 as able. CAD - stable, no CP, cont outpt meds Hypothyroidism - cont home meds DNR Subjective: Pt doing okay. No significant pain. Taking some po, but overall poor oral intake. No fevers/chills. Denies CP, SOB or cough. Objective: Vital Signs Temp Pulse Resp BP Pulse Ox 36.7 C 93 12 151/78 H 100 08/26/16 07:58 08/26/16 07:58 08/26/16 07:58 08/26/16 07:58 08/26/16 07:58 Laboratory Results 08/26/16 05:50 08/26/16 05:50 08/25/16 08/26/16 08/27/16 05:59 05:59 05:59 Intake Total 867 Balance 867 - Physical Exam Constitutional: chronically ill appearing, cachectic Eyes: PERRL Ears, Nose, Mouth, Throat: moist mucous membranes Cardiovascular: regular rate and rhythym Respiratory: no respiratory distress, bronchial breath sounds Gastrointestinal: normoactive bowel sounds, soft, non-tender abdomen Skin: warm Musculoskeletal: full muscle strength Neurologic: AAOx3 Psychiatric: interacting appropriately ICD10 Worksheet Patient Problems: Problems Problem Status Onset Acute renal failure Acute Abdominal pain Acute Dehydration Acute Nausea and vomiting Acute Palliative care encounter Acute Partial obstruction of small intestine Acute
[2016-08-26 12:53] LABS: POTASSIUM 5.9 mEq/L (3.5-5.2)
[2016-08-26] MEDS ORDERED: FUROSEMIDE 20 MG/2 ML VIAL IVP ONE (14:20)
[2016-08-26 16:37] LABS: ANION GAP 9 mEq/L (8-16); CALCIUM 8.1 mg/dL (8.5-10.4); CARBON DIOXIDE 25 mEq/l (22-31); CHLORIDE 108 mEq/L (97-110); CREATININE 2.6 mg/dL (0.7-1.3); GLOMERULAR FILTRATION RATE 24; GLUCOSE 98 mg/dL (70-100); POTASSIUM 4.9 mEq/L (3.5-5.2); SODIUM 142 mEq/L (134-144)
[2016-08-27 04:48] LABS: HEMATOCRIT 28.8 % (40.0-51.0); HEMOGLOBIN 9.3 g/dL (13.7-17.5); MEAN CELL HEMOGLOBIN 27.8 pg (27.9-34.1); MEAN CELL HEMOGLOBIN CONCENTR. 32.3 g/dL (32.4-36.7); MEAN CELL VOLUME 86.2 fL (81.5-99.8); RED BLOOD CELL COUNT 3.34 10^6/uL (4.40-6.38); RED CELL DISTRIBUTION WIDTH 14.7 % (11.5-15.2)
[2016-08-27 05:02] LABS: ANION GAP 9 mEq/L (8-16); CALCIUM 7.8 mg/dL (8.5-10.4); CARBON DIOXIDE 25 mEq/l (22-31); CHLORIDE 108 mEq/L (97-110); CREATININE 2.3 mg/dL (0.7-1.3); GLOMERULAR FILTRATION RATE 27; GLUCOSE 116 mg/dL (70-100); POTASSIUM 3.6 mEq/L (3.5-5.2); SODIUM 142 mEq/L (134-144)
[2016-08-27] MEDS: NS 1,000 ML IV SCH (05:30)
[2016-08-27] MEDS: LEVOTHYROXINE 25 MCG TAB PO SCH (06:40)
[2016-08-27] MEDS: HEPARIN 5,000 UNIT/0.5 ML SYR SC SCH (06:40)
[2016-08-27] MEDS: CHOLECALCIFEROL VIT D3 2,000 UNITS TAB/CAP PO SCH (08:34)
--- NOTE | 2016-08-27 08:41 | GCON ---
[f rep st] CONSULTATION DATE OF CONSULTATION: 08/26/2016 REFERRING PHYSICIAN: Essence Bowens MD REASON FOR CONSULTATION: Bilateral hydronephrosis with acute kidney injury. HISTORY OF PRESENT ILLNESS: The patient is an 81-year-old male, who was transferred to the emergenc y department earlier today, after routine lab testing showed a creatinine of 3.3 mg/dL. The patient has a history of metastatic melanoma, and is currently undergoing active treatment. He has a histo ry of bilateral nephrolithiasis, but previously no hydronephrosis. [facility]. KUB showed bilateral renal stones. PAST MEDICAL HISTORY: Positive for metastatic melanoma, coronary artery disease, history of prostat e cancer treated with external beam radiation. PAST SURGICAL HISTORY: Small-bowel obstruction. EXAM: GENERAL APPEARANCE: The patient is an elderly male, who is alert, but in no acute distress. CHEST: He has symmetric chest wall excursions. ABDOMEN: Palpably distended bladder. EXTREMITIES: He has no peripheral edema. NEUROLOGIC: No gross neurologic deficits. RADIOGRAPHIC STUDIES: I reviewed his current and prior x-ray studies from 2017. The patient has bi lateral nonobstructing renal stones, which appear to be in the same position. There is no evidence of any ureteral stones on today's imaging. However, the patient does have a residual of approximate ly 1000 mL in his bladder, and is unable to void. TREATMENT: A 16-Belarusian coude catheter was passed into the bladder with no difficulties. Drainage o f approximately 1000 mL of clear yellow urine ensued. Patient's abdominal distention decreased. IMPRESSION: Acute kidney injury, with bilateral hydronephrosis and acute urinary retention, with no mechanical obstruction apparent. PLAN: I feel that the urinary retention was the most likely cause for his hydronephrosis and acute kidney injury. There is no evidence of ureteral stones bilaterally compared to prior imaging. I wi ll await the followup creatinine levels, and if it is decreasing, we will obtain a followup renal ul trasound to see if the hydronephrosis has resolved. If there is persistent hydronephrosis and no im provement in renal function, the patient will need either ureteral stents or nephrostomy tubes. I d id discuss this with the patient and family, and they are reluctant to have any additional procedure s at this time. /[id number]/MODL
--- NOTE | 2016-08-27 10:04 | PDGENHP ---
History and Physical - Chief Complaint STEVEN, hyperkalemia - History of Present Illness Mr. 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 His baseline Cr appears to be around 1.0. He presented with Cr of 3.4, K of 6.1. He was found to have bilateral hydronephrosis and 700+ml in bladder, francisco catheter placed by urologist and now having good UOP. Cr downtrended but K was still high yesterday at 6.1, with treatment with sodium bicarb, kayexalate, calcium, pt continued to have K of 5.9, prompting nephrology consult. Under my direction, a single dose of Lasix 20mg IV was given, pt was getting IVFs at the same time. K came down to 4.9 yesterday afternoon and today is down to 3.6. Pt is feeling well, some mild soreness on his L side but not significant. He has no swelling and is breathing comfortably. History Information - Allergies/Home Medication List Allergies/Adverse Reactions: No Known Allergies Allergy (Verified 04/30/16 09:16) Home Medications: Cholecalciferol Vit D3 [Vitamin D3 (*)] 5,000 units PO DAILY 08/25/16 [Last Taken 08/25/16] Levothyroxine [Synthroid 25 mcg (*)] 25 mcg PO DAILY 08/25/16 [Last Taken ] Naproxen Sodium [Aleve 220 MG (*)] 220 mg PO BID 08/25/16 [Last Taken Unknown] Sennosides/Docusate Sodium [Senna-S Tablet] 1 each PO HS PRN 08/25/16 [Last Taken 08/24/16] I have personally reviewed and updated: medical history - Past Medical History coronary artery disease, cancer (metastatic melanoma last treatment March 2016 with radiation to the chest and prostate cancer), hypertension, hyperlipidemia Additional medical history: Chronic kidney disease stage 3 with baseline creatinine 1.3-1.5. Recurrent small bowel obstruction most recently in May of 2016. Provoked SVT - Surgical History Reports: appendectomy Additional surgical history: melanoma resection on chin. vertebral biopsy. 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 Independent in ADLs Review of Systems ROS: 10pt was reviewed & negative except for what was stated in HPI & below Physical Exam Temp Pulse Resp BP Pulse Ox 36.5 C 100 24 H 123/75 H 96 08/27/16 07:37 08/27/16 07:37 08/27/16 07:37 08/27/16 07:37 08/27/16 07:37 O2 (L/minute) 1 Constitutional: no apparent distress, appears nourished, not in pain Eyes: PERRL, anicteric sclera, EOMI Ears, Nose, Mouth, Throat: moist mucous membranes, hearing normal Cardiovascular: regular rate and rhythym, pulses symmetric bilaterally, No edema Peripheral Pulses: 2+: dorsalis-pedis (R), dorsalis-pedis (L) Respiratory: no respiratory distress, no rales or rhonchi, clear to auscultation Gastrointestinal: normoactive bowel sounds, soft, non-tender abdomen Skin: warm, No rash Musculoskeletal: no muscle tenderness, normal joint ROM Neurologic: AAOx3, CN II-XII Intact, No asterixes Psychiatric: interacting appropriately, not anxious, not encephalopathic Lab Data & Imaging Review 08/27/16 04:24 08/27/16 04:24 WBC 3.70 10^3/uL (3.80-9.50) L 08/27/16 04:24 RBC 3.34 10^6/uL (4.40-6.38) L 08/27/16 04:24 Hgb 9.3 g/dL (13.7-17.5) L 08/27/16 04:24 POC Hgb 11.6 gm/dL (14.5-17.3) L 08/25/16 17:12 Hct 28.8 % (40.0-51.0) L 08/27/16 04:24 POC Hct 34 % (42.8-50.6) L 08/25/16 17:12 MCV 86.2 fL (81.5-99.8) 08/27/16 04:24 MCH 27.8 pg (27.9-34.1) L 08/27/16 04:24 MCHC 32.3 g/dL (32.4-36.7) L 08/27/16 04:24 RDW 14.7 % (11.5-15.2) 08/27/16 04:24 Plt Count 76 10^3/uL (150-400) L 08/27/16 04:24 MPV 8.9 fL (8.7-11.7) 08/26/16 05:50 Neut % (Auto) 82.6 % (39.3-74.2) H 08/26/16 05:50 Lymph % (Auto) 2.5 % (15.0-45.0) L 08/26/16 05:50 Custer % (Auto) 10.9 % (4.5-13.0) 08/26/16 05:50 Eos % (Auto) 2.9 % (0.6-7.6) 08/26/16 05:50 Baso % (Auto) 0.2 % (0.3-1.7) L 08/26/16 05:50 Nucleat RBC Rel Count 0.0 % (0.0-0.2) 08/26/16 05:50 Absolute Neuts (auto) 3.65 10^3/uL (1.70-6.50) 08/26/16 05:50 Absolute Lymphs (auto) 0.11 10^3/uL (1.00-3.00) L 08/26/16 05:50 Absolute Monos (auto) 0.48 10^3/uL (0.30-0.80) 08/26/16 05:50 Absolute Eos (auto) 0.13 10^3/uL (0.03-0.40) 08/26/16 05:50 Absolute Basos (auto) 0.01 10^3/uL (0.02-0.10) L 08/26/16 05:50 Absolute Nucleated RBC 0.00 10^3/uL (0-0.01) 08/26/16 05:50 Immature Gran % 0.9 % (0.0-1.1) 08/26/16 05:50 Immature Gran # 0.04 10^3/uL (0.00-0.10) 08/26/16 05:50 VBG Lactic Acid 1.6 mmol/L (0.7-2.1) 08/25/16 17:14 POC Sodium 135 mEq/L (134-144) 08/25/16 17:12 Sodium 142 mEq/L (134-144) 08/27/16 04:24 POC Potassium 5.7 mEq/L (3.3-5.0) H 08/25/16 17:12 Potassium 3.6 mEq/L (3.5-5.2) 08/27/16 04:24 POC Chloride 98 mEq/L (96-108) 08/25/16 17:12 Chloride 108 mEq/L (97-110) 08/27/16 04:24 Carbon Dioxide 25 mEq/l (22-31) 08/27/16 04:24 Anion Gap 9 mEq/L (8-16) 08/27/16 04:24 POC BUN 83 mg/dL (7-23) H 08/25/16 17:12 BUN 55 mg/dL (7-23) H 08/27/16 04:24 Creatinine 2.3 mg/dL (0.7-1.3) H 08/27/16 04:24 POC Creatinine 3.6 mg/dL (0.8-1.5) H 08/25/16 17:12 Estimated GFR 27 08/27/16 04:24 Glucose 116 mg/dL (70-100) H 08/27/16 04:24 POC Glucose 114 mg/dL (70-100) H 08/25/16 17:12 Calcium 7.8 mg/dL (8.5-10.4) L 08/27/16 04:24 Phosphorus 3.8 mg/dL (2.5-4.5) 08/25/16 17:05 Troponin I < 0.012 ng/mL (0-0.034) 08/25/16 17:14 Assessment & Plan Assessment: Assessment/Plan: STEVEN: likely due to obstruction, now francisco catheter in and Cr downtrending from peak of 3.6 to 2.3 today, good UOP, lytes ok. - Expect renal function to continue to improve. - Will change IVFs to 1/2NS. - Will continue to monitor. Hyperkalemia: due to STEVEN, improvement lagged after francisco catheter placement but now improved with improving renal function after getting kayexalate x2 and lasix x1. - K now 3.6, will give a small replacement dose this am. - Will continue to monitor. Urinary outlet obstruction: with bilateral hydronephrosis, s/p francisco catheter placement, urology following, appreciate their assistance. Thank you for the interesting consult. Nephrology will continue to follow, please call with any additional questions or concerns.
[2016-08-27] MEDS ORDERED: POTASSIUM CL 20 MEQ TAB PO ONE (10:18)
[2016-08-27] MEDS: 1/2 NS 1,000 ML IV SCH ×2 (10:30→21:00)
--- NOTE | 2016-08-27 12:54 | HOSPPROG ---
Hospitalist Progress Note Assessment/Plan: Acute kidney injury in the setting of urinary retention with obstructive uropathy and b/l hydronephrosis - No ureteral stones. No e/o infection. Cr trending down with placement of francisco / decompression. Repeat U/S today shows improvement in hydronephrosis. Naproxen d/c'd, avoid nephrotoxic agents. Renal and urology consults appreciated. Cont to follow Cr closely. Hyperkalemia - K improved, may actually need replacement now after IV Lasix. Metastatic melanoma - mets to bone. receiving chemo and radiation, followed by Dr. Amaya. Enlarging hilar mass on CXR. Hypoxemia - ?secondary to enlarging hilar mass vs atelectasis. No fevers, no e/ o PNA on CXR. Cont IS, wean O2 as able. CAD - stable, no CP, cont outpt meds Hypothyroidism - cont home meds DNR Subjective: Pt is resting comfortably, no complaints. No fevers. Objective: Vital Signs Temp Pulse Resp BP Pulse Ox 36.7 C 108 H 17 150/72 H 87 L 08/27/16 11:33 08/27/16 11:33 08/27/16 11:33 08/27/16 11:33 08/27/16 11:33 Laboratory Results 08/27/16 04:24 08/27/16 04:24 08/26/16 08/27/16 08/28/16 05:59 05:59 05:59 Intake Total 867 2500 Output Total 5 Balance 867 475 - Physical Exam Constitutional: chronically ill appearing Eyes: PERRL Ears, Nose, Mouth, Throat: moist mucous membranes Cardiovascular: regular rate and rhythym Respiratory: no respiratory distress Gastrointestinal: normoactive bowel sounds, soft, non-tender abdomen Skin: warm Musculoskeletal: full muscle strength Neurologic: AAOx3 ICD10 Worksheet Patient Problems: Problems Problem Status Onset Acute renal failure Acute Abdominal pain Acute Dehydration Acute Nausea and vomiting Acute Palliative care encounter Acute Partial obstruction of small intestine Acute
[2016-08-27] MEDS ORDERED: traMADol 50 MG TAB PO PRN (15:12)
--- NOTE | 2016-08-27 21:28 | GCON ---
[f rep st] CONSULTATION ONCOLOGY CONSULTATION DATE OF CONSULTATION: 08/27/2016 REASON FOR CONSULTATION: Metastatic melanoma. HISTORY OF PRESENT ILLNESS: The patient is an 81-year-old gentleman treated by Dr. Amaya for metastatic melanoma. He was in the office Sunday and was found to have a creatinine of 3.4, potassium 6.0, and was sent to the emergency room. Ultrasound demonstrated bilateral hydronephrosis with a bladder volume of 760 mL. He was unable to void. Likely bilateral nephrolithiasis. Nursing staff had difficulty placing a Rowan and Dr. Lopez was consulted. He was able to place a Rowan resulting in 1 L of urine. His creatinine has improved to 2.3 today. Creatinine 07/26/16, was 1.2. It was 1.7 on 08/17/16. Potassium has likewise normalized and is 3.6 this morning. The patient had radiation recently at the [facility]. Records are not available in his office chart, but his daughter describes radiation at least to some areas in the pelvis. They report he developed dysuria and frequency around the time of his radiation. Prior to that, he has had some mild hesitancy, but no other significant obstructive symptoms. Of note, he does have a history of prostate cancer which was treated with brachytherapy. He reports no incontinence resulting from that. His biggest complaint is left thigh pain which is felt to be referred from bony lesions in his pelvis from their description. He tried what sounds to be MS Contin for a few days, but developed constipation and did not like how he felt on it. He was taking Aleve prior to admission for bone pain. PAST MEDICAL HISTORY: 1. 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 He developed metastatic disease to lungs and bone in November 2015. He has had radiation with Dr. Acuna in the past. He was treated with ipilimumab and nivolumab 01/20/16 to 03/24/16. He started pembrolizumab (Keytruda) 08/17/16. 2. Hypercalcemia of malignancy, he has been receiving zoledronic acid. 3. Prostate cancer, 2008. Treated with brachytherapy. 4. 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 PAST SURGICAL HISTORY: Small bowel obstruction due to intussusception related to metastatic disease requiring surgery, 05/2016. SOCIAL HISTORY: He is retired. Former smoker. His daughter is very involved with his care. He lives in [place]. OUTPATIENT MEDICATIONS: Cyclobenzaprine, levothyroxine 25 mcg daily, Aleve, stool softener. ALLERGIES: No known drug allergies. REVIEW OF SYSTEMS: CONSTITUTIONAL: Fatigue, chronic and unchanged. No fevers or chills. RESPIRATORY: No dyspnea, pleurisy. CARDIOVASCULAR: No chest pain, lower extremity edema. GASTROINTESTINAL: He was constipated earlier in the week which he attributes to morphine. He has since had a bowel movement. No bowel incontinence. GENITOURINARY: Per HPI. MUSCULOSKELETAL: Per HPI. NEUROLOGIC: No new symptoms. LABORATORY DATA: Today, WBC 3.7, hemoglobin 9.3, platelets 76,000. Sodium 142, potassium 3.6, chloride 108, bicarbonate 25, BUN 55, creatinine 2.3. RADIOLOGIC STUDIES: As above. IMPRESSION: 1. Acute kidney injury due to urinary retention: I suspect retention was precipitated by likely underlying BPH with probable exacerbation from recent radiation and urethral inflammation. He will need to follow up with Urology. Hopefully, Rowan will be a temporary requirement. Creatinine is coming down. Potassium has normalized. 2. Bone metastases: He does not have adequate pain control. He is leery of narcotics due to side effects. We discussed a trail of tramadol. NSAIDs are not an option for him given his kidney injury. 3. Metastatic melanoma: He will continue with therapy under the direction of Dr. Amaya. His next dose of pembrolizumab would be due 09/07/16. /[id number]/MODL MTDD
[2016-08-27] MEDS: ACETAMINOPHEN 325 MG TAB PO PRN (23:13)
[2016-08-28 04:21] LABS: HEMATOCRIT 28.9 % (40.0-51.0); HEMOGLOBIN 9.3 g/dL (13.7-17.5); MEAN CELL HEMOGLOBIN 27.8 pg (27.9-34.1); MEAN CELL HEMOGLOBIN CONCENTR. 32.2 g/dL (32.4-36.7); MEAN CELL VOLUME 86.3 fL (81.5-99.8); RED BLOOD CELL COUNT 3.35 10^6/uL (4.40-6.38); RED CELL DISTRIBUTION WIDTH 14.7 % (11.5-15.2)
[2016-08-28 04:41] LABS: ANION GAP 7 mEq/L (8-16); CALCIUM 7.3 mg/dL (8.5-10.4); CARBON DIOXIDE 23 mEq/l (22-31); CHLORIDE 108 mEq/L (97-110); CREATININE 1.7 mg/dL (0.7-1.3); GLOMERULAR FILTRATION RATE 39; GLUCOSE 74 mg/dL (70-100); POTASSIUM 3.5 mEq/L (3.5-5.2); SODIUM 138 mEq/L (134-144)
[2016-08-28] MEDS: ACETAMINOPHEN 325 MG TAB PO PRN ×2 (06:34→11:08)
[2016-08-28] MEDS: LEVOTHYROXINE 25 MCG TAB PO SCH (06:35)
[2016-08-28] MEDS: CHOLECALCIFEROL VIT D3 2,000 UNITS TAB/CAP PO SCH (08:13)
[2016-08-28] MEDS ORDERED: POTASSIUM CL 20 MEQ TAB PO ONE (09:59)
--- NOTE | 2016-08-28 10:15 | PDIAF ---
- Diagnosis Diagnosis: metastatic melanoma, urinary retention Code Status: Do Not Resuscitate - Medication Management Discharge Medications: Medications to Continue on Transfer Cholecalciferol Vit D3 [Vitamin D3 (*)] 5,000 units PO DAILY 08/25/16 [Last Taken 08/25/16] Levothyroxine [Synthroid 25 mcg (*)] 25 mcg PO DAILY 08/25/16 [Last Taken ] Sennosides/Docusate Sodium [Senna-S Tablet] 1 each PO HS PRN 08/25/16 [Last Taken 08/24/16] Discharge Medications: Refer to the Discharge Home Medication list for PRN reason. PICC Care - Routine: N/A - Orders Services needed: Home Care, Registered Nurse, Physical Therapy, Occupational Therapy Home Care Face to Face: I certify that this patient was under my care and that I had the required [id number] encounter meeting the encounter requirements on the discharge day. My findings support the fact that the patient is homebound as defined in CMS Chapter 7 Medicare Benefits Manual 30.1.1, The condition of the patient is such that there exists a normal inability to leave home and consequently, leaving home would require a considerable and taxing effort. Diet Recommendation: no restrictions on diet Rowan: Yes - Labs/Radiology BMP Date: 08/30/16 Call or Fax Lab and Imaging Results to: Dr. Primo Tavares - Follow Up Care Current Providers and Referrals: Primo Tavares MD [Primary Care Provider] - As per Instructions Osman Lopez MD [Medical Doctor] -
--- NOTE | 2016-08-28 10:54 | GDS ---
[f rep st] DISCHARGE SUMMARY DISCHARGE DIAGNOSES: 1. Acute kidney injury. 2. Urinary retention, with bilateral hydronephrosis secondary to obstructive uropathy. 3. Hyperkalemia, resolved. 4. Metastatic melanoma. 5. Mild hypoxemia in the setting of an enlarging hilar mass, with likely atelectasis. He does not meet criteria for home oxygen. 6. Coronary artery disease, stable. 7. Hypothyroidism. 8. Generalized weakness. CONSULTANTS: 1. Dr. Osman Lopez, Urology. 2. Dr. Mariela Sapp, Oncology. IMAGING STUDIES/PROCEDURES: 1. Abdomen and pelvis ultrasound August 25, 2016, showed bilateral hydronephrosis, right greater than left, with a bladder volume of 716 mL, with inability to void, and bilateral nephrolithiasis. 2. Repeat abdominal ultrasound August 27, 2016, showed improvement in the bilateral hydronephrosis, wi th diffuse bladder wall thickening, possibly related to under distention abdomen sequelae of bladder outlet obstruction. HISTORY: For details, please see the History and Physical dated August 25, 2016. In brief, the patien t is an 81-year-old male with a history of metastatic melanoma, followed by Dr. Amaya, who present ed to the hospital with constipation, and was found to have acute kidney injury and hyperkalemia. Divina james was admitted to the hospital for further management. HOSPITAL COURSE: The patient was admitted to the telemetry unit. He initially received a dose of K ayexalate for potassium of 6.1. However, his potassium did not improve. The following morning, it remained 6.1. He then received a second dose of Kayexalate, along with insulin, dextrose, calcium g luconate, sodium bicarb, and Lasix. His potassium then trended down, and he actually required some replacement prior to discharge, for a potassium of 3.5. His hyperkalemia was in the setting of acut e kidney injury. His creatinine on arrival was 3.6. This was thought to be secondary to obstructiv e uropathy, with bilateral hydronephrosis. A Rowan was placed. The bladder was decompressed. His creatinine trended down to 1.7 at the time of discharge. He has had good urine output. Repeat ultr asound showed improving hydronephrosis. I suspect his obstruction may be related to possible inflam mation, subsequent to radiation he received on his iliac crests recently. He will be discharged harshil e with an indwelling Rowan catheter, and is instructed to follow up with Dr. Osman Lopez within 5-7 days to reassess, and possibly remove the Rowan. He will have a repeat basic metabolic panel in 2 d ays via home health, with the results to his PCP. He will follow up with Dr. Amaya for his ongoin g chemotherapy treatments. His next treatment is due on September 07, 2016. DISPOSITION: Patient is discharged home with home health services, as he declined retirement r ehab, which was offered based on therapy recommendations. He will have home health RN, PT, and OT, for assistance with Rowan management in addition to ongoing therapy for strengthening, given his ove rall weakened state. DISCHARGE MEDICATIONS: Please see PATHEOS for complete updated outpatient medication list. He alanna l continue all outpatient medications as prescribed. There are no new medications on discharge. Na proxen is discontinued at discharge, given his acute kidney injury, and it is recommended he take no other NSAIDs. FOLLOWUP: 1. Dr. Primo Tavares, Primary Care. 2. Dr. Osman Lopez, Urology, within 5-7 days. /[id number]/MODL
[2016-08-28] MEDS ORDERED: traMADol 50 MG TAB PO PRN (11:55)
[2016-08-28 12:05] VITALS: BP 145/82; PULSE 96; RESP 12; TEMP 97.7; O2SAT 96
--- NOTE | 2016-08-28 13:37 | SOAPPROG ---
SOAP Progress Note Assessment/Plan: A/P: * STEVEN: due to urinary obstruction. s/p Rowan with improvement in Cr. He will f/u with urology. * Bone mets: can't take NSAIDs (elevated Cr), doesn't like narcotic side effects. Encouraged trial of 100 mg tramadol. Emphasized regular bowel regimen. * Metastatic melanoma: due for C2 pembrolizumab 09/07. Will have office confirm appt. 08/28/16 13:38 Subjective: Still with left thigh pain. Tramadol 50 mg not helpful, but no side effects. O: VSS Gen: thin, chronically fatigued appearing. NAD. Laboratory Tests 08/28/16 08/28/16 03:42 03:42 WBC 3.54 L Hgb 9.3 L Plt Count 74 L Sodium 138 Potassium 3.5 Chloride 108 Carbon Dioxide 23 BUN 41 H Creatinine 1.7 H Objective: Vital Signs Temp Pulse Resp BP Pulse Ox 36.5 C 96 12 145/82 H 96 08/28/16 11:15 08/28/16 11:15 08/28/16 11:15 08/28/16 11:15 08/28/16 11:15 Laboratory Results 08/28/16 03:42 08/28/16 03:42 08/27/16 08/28/16 08/29/16 05:59 05:59 05:59 Intake Total 24990 Output Total 2024 2049 Balance 475 110 ICD10 Worksheet Patient Problems: Problems Problem Status Onset Acute renal failure Acute Abdominal pain Acute Dehydration Acute Nausea and vomiting Acute Palliative care encounter Acute Partial obstruction of small intestine Acute
== END 2016-08-28 14:49 | disposition home health service (06) | DRG 683 ==
LOC: F1N 21:00 → F2W 08-26 16:48
PROVIDERS: ADMIT Hospitalist; ATTEND Hospitalist
DX: N17.9 Acute kidney failure, unspecified (principal); J98.11 Atelectasis; C79.51 Secondary malignant neoplasm of bone; E87.5 Hyperkalemia; R33.9 Retention of urine, unspecified; N13.39 Other hydronephrosis; I25.10 Atherosclerotic heart disease of native coronary artery without angina pectoris; E03.9 Hypothyroidism, unspecified; N18.3 Chronic kidney disease, stage 3 (moderate); Z87.891 Personal history of nicotine dependence; Z85.820 Personal history of malignant melanoma of skin; Z85.46 Personal history of malignant neoplasm of prostate
CPT/HCPCS: 82947-QW; 97162-GP; 97165-GO; G8978-GP-CK; G8979-GP-CI; G8987-GO-CM; G8988-GO-CJ; J0610; J1815; J1940

== ENCOUNTER 2016-09-14 16:07 | Emergency (ER) | payer OTHER ==
[2016-09-14 16:14] VITALS: RESP 18; TEMP 97.7
--- NOTE | 2016-09-14 16:36 | CPEKG ---
Heart Rate: 91 RR Interval: 659 QRSD Interval: 76 QT Interval: 348 QTC Interval: 429 QRS Meacham: 35 T Wave Meacham: 72 EKG Severity - ABNORMAL ECG - EKG Impression: ATRIAL FIBRILLATION EKG Impression: LOW VOLTAGE IN FRONTAL LEADS Electronically Signed By: Davon Lubin 15-Sep-2016 16:51:35
--- NOTE | 2016-09-14 17:29 | EDPHY ---
H & P Time Seen by Provider: 09/14/16 16:18 HPI/ROS: CHIEF COMPLAINT: "[facility] HPI: The patient is an 81-year-old male with a history of metastatic melanoma. The patient was hospitalized approximately 1 month ago for acute renal failure and hyperkalemia. The patient was sent to the emergency department after a routine visit at his oncologist's office. It is somewhat difficult to piece together reason for the ER visit from the notes provided, but it appears the patient had evidence of recurrent hyperkalemia and may have had an EKG change. The family states that the patient is asymptomatic and they were sent here for an opinion on the EKG. The patient denies chest pain, syncope or tachycardia. REVIEW OF SYSTEMS: Aside from elements discussed in the HPI, a comprehensive 10-point review of systems was reviewed and is negative. PMH: Metastatic melanoma. History of chemotherapy. SOCIAL HISTORY: Retired. Here with daughter. PHYSICAL EXAM: General:Patient is alert, in no acute distress. Somewhat cachectic. ENT:Eyes are normal to inspection. ENT inspection normal. Neck: Normal inspection. Full range of motion. Respiratory:No respiratory distress. Breath sounds normal bilaterally. Cardiovascular: Regular rate and rhythm. Strong peripheral pulses. Normal cap refill. Abdomen:The abdomen is nontender to palpation. There are no peritoneal signs. There are normal bowel sounds. Back: Normal to inspection. No tenderness to palpation. Skin: Normal color. No rash. Warm and dry. Extremities: Normal appearance. Full range of motion. Neuro: Oriented x3. Normal motor function. Normal sensory function. Smoking Status: Former smoker Constitutional: Initial Vital Signs Temperature (C) 36.5 C 09/14/16 16:10 Heart Rate 94 09/14/16 16:10 Respiratory Rate 18 09/14/16 16:10 Blood Pressure 130/80 H 09/14/16 16:10 O2 Sat (%) 95 09/14/16 16:10 O2 Delivery Mode Room Air Allergies/Adverse Reactions: No Known Allergies Allergy (Verified 09/14/16 16:11) Home Medications: Medication Instructions Recorded Cholecalciferol Vit D3 [Vitamin D3 5,000 units PO DAILY 08/25/16 (*)] Levothyroxine [Synthroid 25 mcg 25 mcg PO DAILY 08/25/16 (*)] Sennosides/Docusate Sodium 1 each PO HS PRN 08/25/16 [Senna-S Tablet] Polyethylene Glycol 3350 [Miralax 17 gm PO DAILY PRN #30 pkt 08/28/16 17 gm (*)] traMADol [Ultram 50 mg (*)] 50 - 100 mg PO Q6HRS PRN #90 tab 08/28/16 Sodium Polystyrene Sulfonate 15 gm PO DAILY 5 Days 09/14/16 [Kayexalate] MDM/Departure - MDM Medications Given: Discontinued Medications Sodium Polystyrene Sulfonate (Kayexalate) 15 gm PO EDNOW ONE Stop: 09/14/16 17:32 Last Admin: 09/14/16 17:49 Dose: 15 gm ED Course/Re-evaluation: I apoke with Mallorie Porras NP from [facility] who sent the patient in. She tells me that the reason for the ED transfer was to evaluate the patient's ECG which looked abnormal to them. By my read, there are no EKG findings of significant hyperkalemia, and repeat ECG here in the ED is entirely normal and unchanged from baseline. I discussed this with Mallorie, who felt that the patient could be then safely discharged home and that a plan was in place for the patient to take Kayexelate. The patient and his family are comfortable with this plan but say they don't know about the dose or frequency of the Kayexalate - I reviewed the notes that were sent over and I see no mention of this, and the clinic is now closed. I will prescribe the patient a few days of daily kayexelate and have instructed the patient to call into the office tomorrow to determine the dose desired. - Depart Disposition: Home, Routine, Self-Care Clinical Impression: Hyperkalemia, Metastatic melanoma Condition: Good Instructions: Hyperkalemia (ED) Additional Instructions: Please call your oncologist office tomorrow to confirm the dosage and duration of kayexelate therapy they would like to use. Return to the ED immediately for fever, chest pain, rapid heart rate, weakness or other concerns. Prescriptions: Sodium Polystyrene Sulfonate [Kayexalate] 15 gm PO DAILY 5 Days Referrals: Primo Tavares MD [Primary Care Provider] - As per Instructions
[2016-09-14] MEDS ORDERED: SODIUM POLY SULF 15 GM/60 ML BOTTLE PO ONE (17:31)
[2016-09-14 17:49] VITALS: BP 134/69; PULSE 86; O2SAT 97
== END 2016-09-14 17:49 | disposition home or self-care (01) ==
DX: E87.5 Hyperkalemia (principal); C43.9 Malignant melanoma of skin, unspecified; Z87.891 Personal history of nicotine dependence